=== PATIENT | male | born 1940 | race Caucasian/White ===

== ENCOUNTER 2018-06-18 17:34 | Emergency (ER) | payer MEDICARE ==
[~2018-06-18] VITALS: Ht 175.3 cm; Wt 80.0 kg
[2018-06-18] MEDS ORDERED: MULTCAP PO (18:05)
[2018-06-18] MEDS ORDERED: FINA5TAB2 PO (18:05)
[2018-06-18] MEDS ORDERED: METO1TAB7 PO (18:05)
[2018-06-18] MEDS ORDERED: NITR0.4S14 SL (18:05)
[2018-06-18] MEDS ORDERED: NYST1OIN TOP (18:05)
[2018-06-18] MEDS ORDERED: ACET1TAB55 PO (18:05)
[2018-06-18] MEDS ORDERED: LISI-538 PO (18:05)
[2018-06-18] MEDS ORDERED: ASPI1TAB PO (18:05)
[2018-06-18] MEDS ORDERED: CLOP75TA2 PO (18:05)
[2018-06-18] MEDS ORDERED: GABA-1171 PO (18:05)
[2018-06-18] MEDS ORDERED: OMEP20CA3 PO (18:05)
[2018-06-18] MEDS ORDERED: ATOR40TA75 PO (18:05)
[2018-06-18] MEDS ORDERED: HYDR12CA PO (18:05)
[2018-06-18] MEDS ORDERED: NS 1,000 ML IV ONE (18:30)
[2018-06-18 18:34] LABS: BASO # 0.1 10^3/uL (0.0-0.2); BASO % 0.5 % (0.0-1.0); EOS # 0.4 10^3/uL (0.0-0.50); EOS % 3.9 % (0.0-3.0); HEMATOCRIT 36.5 % (42.0-52.0); HEMOGLOBIN 12.8 g/dl (13.5-17.5); LYMPH # 1.4 10^3/uL (1.5-4.5); LYMPH % 13.3 % (24.0-44.0); MEAN CORPUSCULAR HEMOGLOBIN 33.6 pg (27.0-33.0); MEAN CORPUSCULAR HGB CONC 35.1 g/dl (32.0-36.5); MEAN CORPUSCULAR VOLUME 95.8 fl (80.0-96.0); MONO # 0.9 10^3/uL (0.0-0.8); MONO % 8.9 % (0.0-5.0); NEUTROPHILS # 7.5 10^3/uL (1.8-7.7); NEUTROPHILS % 72.6 % (36.0-66.0); PLATELET COUNT, AUTOMATED 290 10^3/uL (150-450); RED BLOOD COUNT 3.81 10^6/uL (4.30-6.10); WHITE BLOOD COUNT 10.3 10^3/uL (4.0-10.0)
[2018-06-18 18:48] LABS: INR 1.05; PROTHROMBIN TIME 13.8 SECONDS (12.1-14.4)
[2018-06-18 18:49] LABS: PARTIAL THROMBOPLASTIN TIME 29.6 SECONDS (25.4-37.6)
[2018-06-18 18:53] LABS: ALBUMIN 3.7 GM/DL (3.2-5.2); ALT/SGPT 22 U/L (12-78); BILIRUBIN,DIRECT < 0.1 MG/DL (0.0-0.2); BILIRUBIN,TOTAL 0.3 MG/DL (0.2-1.0); BLOOD UREA NITROGEN 30 MG/DL (7-18); CALCIUM LEVEL 8.8 MG/DL (8.8-10.2); CARBON DIOXIDE LEVEL 21 MEQ/L (21-32); CHLORIDE LEVEL 101 MEQ/L (98-107); CREATININE FOR GFR 2.16 MG/DL (0.70-1.30); GLOMERULAR FILTRATION RATE 31.7 (>42); GLUCOSE, FASTING 119 MG/DL (70-100); POTASSIUM SERUM 4.7 MEQ/L (3.5-5.1); SODIUM LEVEL 130 MEQ/L (136-145); TOTAL PROTEIN 7.4 GM/DL (6.4-8.2)
--- NOTE | 2018-06-18 20:09 | REPVR ---
EXAM: CT Abdomen and Pelvis Without Contrast EXAM DATE/TIME: 06/18/2018 7:17 PM CLINICAL HISTORY: 78 years old, male; Abnormal findings; Abnormal lab test; Other: Hematuria; Additional info: Gross hematuria, suprapubic catheter TECHNIQUE: Axial computed tomography images of the abdomen and pelvis without contrast. All CT scans at this facility use at least one of these dose optimization techniques: automated exposure control; mA and/or kV adjustment per patient size (includes targeted exams where dose is matched to clinical indication); or iterative reconstruction. Coronal and sagittal reformatted images were created and reviewed. COMPARISON: No relevant prior studies available. FINDINGS: Lower thorax: Minimal bibasilar bullous change with slight interstitial prominence and scar. Coronary artery calcifications are present. ABDOMEN: Liver: Normal. No mass. Gallbladder and bile ducts: Minimal gallstone measuring up to 5 mm. Pancreas: Normal. No ductal dilation. Spleen: Normal. No splenomegaly. Adrenals: Normal. No mass. Kidneys and ureters: Normal. No hydronephrosis. Stomach and bowel: Normal. No obstruction. No mucosal thickening. Appendix: A normal appendix is seen. PELVIS: Bladder: Suprapubic Giraldo catheter in position with increased density layering urinary bladder which may reflect blood clot or possible mass. There is wall thickening of the urinary bladder. Reproductive: Unremarkable as visualized. ABDOMEN and PELVIS: Intraperitoneal space: Normal. No free air. No significant fluid collection. 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 There are degenerative changes of the lumbar spine with facet arthropathy. Soft tissues: Small fat filled right inguinal hernia with bowel extending just into the orifice. There is a mild left inguinal hernia containing bowel with no strangulation or obstruction. Vasculature: Aortobiiliac covered stent traversing an abdominal aortic aneurysm measuring 5.3 x 4.6 cm. Lymph nodes: Lobular right adrenal mass or possible adenopathy which is confluent with the IVC measuring approximately 4.8 x 5.0 x 4.1 cm. IMPRESSION: 1. Suprapubic Giraldo catheter in the bladder. 2. Urinary bladder wall thickening with irregular high density material posteriorly which may reflect blood clot. Mass is not excluded. 3. Minimal bibasilar bullous change and slight interstitial prominence and scar. 4. Small right inguinal hernia and mild left inguinal hernia containing bowel, particularly on the left with no strangulation or obstruction. 5. Minimal cholelithiasis. 6. Lobular right adrenal mass or possible adenopathy measuring 4.8 x 5.0 x 4.1 cm. 7. Aortobiiliac covered stent traversing an abdominal aortic aneurysm 5.3 x 4.6 cm. Electronically signed by: Elton Fernández On 06/18/2018 20:08:58 PM
[2018-06-18] MEDS ORDERED: CIPR-250 PO (22:42)
[2018-06-18] MEDS ORDERED: CIPROFLOXACIN 250 MG TAB PO ONE (22:45)
[2018-06-18 22:54] VITALS: BP 169/71
--- NOTE | 2018-06-19 13:54 | ED PDOC ---
Post-Departure Follow-Up dr lucia and lidia peralta faxed formal report of ct abd/p for fu Dennis Hansen MD Jun 19, 2018 13:54
== END 2018-06-18 22:59 | disposition home or self-care (01) ==
LOC: M ED 17:34
DX: N30.91 Cystitis, unspecified with hematuria (principal); R79.89 Other specified abnormal findings of blood chemistry; R93.5 Abnormal findings on diagnostic imaging of other abdominal regions, including retroperitoneum; Z79.82 Long term (current) use of aspirin; Z79.01 Long term (current) use of anticoagulants

== ENCOUNTER 2019-01-28 08:28 | Inpatient (IN) | payer MEDICARE ==
[~2019-01-28] VITALS: Ht 175.3 cm; Wt 78.9 kg
[~2019-01-28 08:28] MED LIST: ACET1TAB55 PO; ASPI81TA26 PO; ATOR40TA75 PO; CIPR-250 PO; CLOP75TA2 PO; FINA5TAB2 PO; GABA-1171 PO; HYDR12CA PO; LISI-538 PO; METO1TAB7 PO; MULTCAP PO; NITR0.4S14 SL; NYST1OIN TOP; OMEP20CA4 PO
[2019-01-28 10:30] VITALS: BP 129/62
[2019-01-28 11:44] LABS: BASO % 0.1 % (0.0-1.0); EOS % 0.1 % (0.0-3.0); HEMATOCRIT 26.7 % (42.0-52.0); HEMOGLOBIN 8.6 g/dl (13.5-17.5); LYMPH # 0.6 10^3/uL (1.5-5.0); LYMPH % 6.8 % (24.0-44.0); MEAN CORPUSCULAR HEMOGLOBIN 29.5 pg (27.0-33.0); MEAN CORPUSCULAR HGB CONC 32.2 g/dl (32.0-36.5); MEAN CORPUSCULAR VOLUME 91.4 fl (80.0-96.0); MONO # 0.8 10^3/uL (0.0-0.8); MONO % 8.3 % (0.0-5.0); NEUTROPHILS # 7.9 10^3/uL (1.5-8.5); NEUTROPHILS % 83.2 % (36.0-66.0); PLATELET COUNT, AUTOMATED 178 10^3/uL (150-450); RED BLOOD COUNT 2.92 10^6/uL (4.30-6.10); WHITE BLOOD COUNT 9.5 10^3/uL (4.0-10.0)
[2019-01-28] MEDS ORDERED: ZOSY1INJ5 IV (11:46)
[2019-01-28] MEDS ORDERED: FURO80VL IM (11:46)
[2019-01-28] MEDS ORDERED: POTA1TAB14 PO (11:46)
[2019-01-28] MEDS ORDERED: [UNRECOGNIZED DRUG - CODE] IV (11:46)
[2019-01-28] MEDS ORDERED: CHOL400T PO (11:46)
[2019-01-28] MEDS ORDERED: LEVO1INJ4 IV (11:46)
[2019-01-28] MEDS ORDERED: [UNRECOGNIZED DRUG - CODE] IV (11:46)
[2019-01-28 12:00] VITALS: BP 132/62
[2019-01-28 12:07] LABS: CALCIUM LEVEL 7.3 MG/DL (8.8-10.2); CREATININE FOR GFR 2.12 MG/DL (0.70-1.30); GLOMERULAR FILTRATION RATE 32.3 (>42); POTASSIUM SERUM 3.7 MEQ/L (3.5-5.1)
[2019-01-28] MEDS ORDERED: NITROGLYCERIN 0.4 MG SUBL TABLET SL PRN (14:00)
[2019-01-28] MEDS: LISINOPRIL 20 MG TAB PO SCH (14:46)
[2019-01-28] MEDS: hydroCHLOROthiazide 12.5 MG CAPSULE PO SCH (14:46)
[2019-01-28] MEDS: METOPROLOL SUCC (TopROL XL) 50MG **XL** TAB PO SCH (14:46)
--- NOTE | 2019-01-28 14:49 | HPEPDOC ---
General Date of Admission Jan 28, 2019 at 10:25 Date of Service: Jan 28, 2019 Attending Physician: JENI SHARIF DO Chief Complaint The patient is a 79-year-old male admitted with a reason for visit of Urosepsis. Source: Patient, Family Exam Limitations: No limitations Timing/Duration: Week(s) Severity: Moderate Associated Symptoms: Fever, Chills, Weakness, Hypotension History of Present Illness Patient is 79 years old male with past medical history of [place], status post stent placement, aortic aneurysm repair, urethra stricture with chronic suprapubic catheter transferred from [facility], where he was admitted for urosepsis. Patient was found to have low blood pressure 70/40, temperature 102.1, tachycardia 113, lactic acid of 2.6. Patient stated that he developed fever and chills for past few days. Also patient stated that he has been having gross hematuria for past few months. Abdominal and pelvis CT was done and showed bladder wall thickening suspicious for mass, and obstructive changes with moderate hydronephrosis of the right collecting system. Patient received fluid resuscitation and antibiotics, blood pressure was stabilized and patient was transferred to our facility Home Medications Scheduled Aspirin (Aspirin EC) 81 Mg Tab, 81 MG PO QHS, (Reported) Atorvastatin Calcium (Atorvastatin Calcium) 40 Mg Tab, 40 MG PO QHS, (Reported) Cholecalciferol (Vitamin D3) (Vitamin D3) 400 Unit Tablet, 400 UNIT PO DAILY, (Reported) Finasteride (Finasteride) 5 Mg Tab, 5 MG PO QHS, (Reported) Gabapentin (Gabapentin) 100 Mg Cap, 100 MG PO TID, (Reported) Hydrochlorothiazide (Hydrochlorothiazide) 12.5 Mg Cap, 12.5 MG PO DAILY, (Reported) Levofloxacin in Dextrose 5 % (Levofloxacin 750 mg/150 ml-D5w) 750 Mg/150 Ml Piggyback, 750 MG IV DAILY, (Reported) GIVEN AT [place] ONCE OF ONE Lisinopril (Lisinopril) 20 Mg Tab, 20 MG PO DAILY, (Reported) Metoprolol Succinate (Metoprolol Succinate) 50 Mg Tab, 50 MG PO DAILY, (Rep orted) Multivitamin (Multivitamins) 1 Cap Cap, 1 CAP PO DAILY, (Reported) Omeprazole (Omeprazole) 20 Mg Cap, 20 MG PO BID, (Reported) Piperacillin Sodium/Tazobactam (Zosyn 4.5 Gram Vial) 4.5 Gm Vial, 4.5 GM IV DAILY, (Reported) GIVEN WITH 100ML OF NACL 0.9% AT [place] Potassium Chloride (Potassium Chloride) 20 Meq Tablet.er, 40 MEQ PO DAILY, (Reported) GIVEN AT [place] Vancomycin/0.9 % Sod Chloride (Vanco 1.5 gm/300 ml-0.9% NaCl) 1.5 Gm/300 Ml Plast..bag, 1.5 GM IV DAILY, (Reported) GIVEN AT [place] ONCE OF ONE Scheduled PRN Acetaminophen (Acetaminophen) 325 Mg Tab, 650 MG PO Q8H PRN for PAIN / FEVER, (Reported) Nitroglycerin (Nitroglycerin) 0.4 Mg Sub, 0.4 MG SL NITRO PRN for CHEST PAIN, (Reported) Nystatin/Triamcin (Nystatin-Triamcinolone Ointm) 1 Oin Oin, 1 APLCT TOP QID PRN for RASH AROUND CATHETER, (Reported) apply to affected area(s) Allergies Coded Allergies: No Known Allergies (Unverified , 01/28/19) Past Medical History Medical History Aortic aneurysm repair, [place], s/p stents placement, hypertension, chronic urethral stricture Surgical History Aortic aneurysm repair, cystostomy with chronic suprapubic catheter Family History Father from heart attack Social History * Smoker: former Smoker Alcohol: Denies Drugs: denies A-FIB/CHADSVASC A-FIB History Current/History of A-Fib/PAF?: No Current PO Anticoag Therapy: No Review of Systems Constitutional: Reports: Chills, Fever, Weakness, Fatigue Eyes: Denies: Pain, Vision change ENT: Denies: Head Aches, Ear Pain Skin: Denies: Rash, Lesions Pulmonary: Denies: Dyspnea, Cough Cardiovascular: Denies: Chest Pain, Palpitations Gastrointestinal: Denies: Nausea, Vomiting Genitourinary: Reports: Hematuria; Denies: Dysuria, Frequency Hematologic: Denies: Bruising, Bleeding Excessively Endocrine: Denies: Polydipsia, Polyphagia Musculoskeletal: Denies: Neck Pain, Back Pain Neurological: Denies: Weakness Psych: Reports: Mood Normal Physical Examination General Exam: Positive: Alert, Cooperative Eye Exam: Positive: PERRLA, Conjunctiva & lids normal ENT Exam: Positive: Atraumatic Neck Exam: Positive: Supple; Negative: JVD Chest Exam: Positive: Clear to auscultation Heart Exam: Positive: Rate Normal Telemetry: Positive: No significant arrhythmia Abdomen Exam: Positive: Normal bowel sounds, Other (suprapubic catheter in place) Extremity Exam: Negative: Clubbing, Cyanosis Skin Exam: Positive: Nl turgor and temperature Neuro Exam: Positive: Strength at 5/5 X4 ext, Cranial Nerves 3-12 NL Vital Signs Vital Signs Date Time Temp Pulse Resp B/P (MAP) Pulse Ox O2 Delivery O2 Flow Rate FiO2 01/28/19 13:59 95 Room Air 01/28/19 12:00 98.2 75 20 132/62 (85) 2.0 Laboratory Data Labs 24H Laboratory Tests 2 01/28/19 11:21: Immature Granulocyte % (Auto) 1.5, Neutrophils (%) (Auto) 83.2H, Lymphocytes (%) (Auto) 6.8L, Monocytes (%) (Auto) 8.3H, Eosinophils (%) (Auto) 0.1, Basophils (%) (Auto) 0.1, Neutrophils # (Auto) 7.9, Lymphocytes # (Auto) 0.6L, Monocytes # (Auto) 0.8, Eosinophils # (Auto) 0.0, Basophils # (Auto) 0.0, Nucleated Red Blood Cells % (auto) 0.0, Anion Gap 10, Glomerular Filtration Rate 32.3L, Lactic Acid Level 1.6, Calcium Level 7.3L 01/28/19 11:46: Methicillin-Resist S.aureus DNA PCR NOT DETECTED CBC/BMP Laboratory Tests 01/28/19 11:21 Microbiology Microbiology 01/28/19 Blood Culture, Received Pending 01/28/19 Blood Culture, Received Pending Assessment/Plan Patient is 79 years old male with past medical history of [place], status post stent placement, aortic aneurysm repair, urethra stricture with chronic suprapubic catheter transferred from [facility], where he was admitted for urosepsis. Patient was found to have low blood pressure 70/40, temperature 102.1, tachycardia 113, lactic acid of 2.6. Patient stated that he developed fever and chills for past few days. Also patient stated that he has been having gross hematuria for past few months. Abdominal and pelvis CT was done and showed bladder wall thickening suspicious for mass, and obstructive changes with moderate hydronephrosis of the right collecting system Problems (1) Sepsis Status: Acute Problem Text: Patient has increased lactic acid level, fever, tachycardia, hypotension on the admission at [facility] on 01/28/19 Patient received fluid resuscitation and Zosyn On admission to [facility], patient was afebrile, does not have leukocytosis Continue IV fluid, will check blood culture, meropenem IV (2) Gross hematuria Status: Acute Problem Text: Findings on CT suspicious for bladder carcinoma I talked to Dr. Higgins she will proceed with cystoscopy tomorrow (3) Bladder mass Problem Text: See above (4) AUSTIN (acute kidney injury) Problem Text: Multifactorial renal and prerenal causes Most likely secondary to obstruction and dehydration secondary to sepsis Continue IV fluid Continue to monitor (5) Coronary artery disease Problem Text: Continue home cardioprotective medication Patient does not have any chest pain EKG does not show any acute ischemic changes (6) Hypertension Problem Text: Blood pressures under control Continue home meds Plan / VTE VTE Prophylaxis Ordered?: No VTE Exclusion Pharmacological: Active Bleeding JENI SHARIF DO Jan 28, 2019 14:49
[2019-01-28 16:00] VITALS: BP 142/70
[2019-01-28] MEDS: NS 1,000 ML IV SCH (16:16)
[2019-01-28] MEDS: GABAPENTIN 100 MG CAP PO SCH ×2 (16:16→20:24)
[2019-01-28] MEDS: VITAMIN D (CHOLECALCIFEROL) 400 INTERNATIONAL UNITS TAB PO SCH (16:54)
[2019-01-28] MEDS: MEROPENEM INJ 1 GM in IV 1 EA IV SCH (17:01)
[2019-01-28 17:41] LABS: CK-MB VALUE MASS 2.1 NG/ML (<3.6); MB/CK RELATIVE INDEX 1.02 (< OR =4); TROPONIN I 0.19 NG/ML (< 0.10)
--- NOTE | 2019-01-28 17:46 | IPNPDOC ---
Text Note Date of Service The patient was seen on 01/28/19. NOTE Mr. Downs was seen in consultation on 01/28/19 at the request of Dr. Allison for several month history of gross hematuria, recent urosepsis transferred last night from [facility], and a history of a suprapubic catheter. The patient is well known to our office and also has a right adrenal mass which they have been watching for many years. For the last 8 years he has had a suprapubic tube for a urethral stricture which she decided not to have complete reconstruction on. He has had difficulty with recurrent urinary tract infections and gross hematuria. He had a cystoscopy done in the office on 03/21/19 and this was unremarkable except for edematous changes from the indwelling catheter. He has been off Plavix but continues to have gross hematuria for the last several months which comes and goes. Mr. Downs went to the emergency room last night at [facility] with a fever of 102 and chills. He was found to be hypotensive with a blood pressure of 70/40 and tachycardic with a lactic acid of 2.6. She fluid resuscitation, antibiotics, and he was stabilized and transferred. A CT scan done at [facility] showed a right adrenal mass now measuring 6.5 cm which they read was concerning for neoplasm but supposedly this is been there since Not bladder wall thickening. Past medical history: Coronary artery disease, high blood pressure, hyperlipidemia, urethral stricture, GERD, history of a CVA in 2011, peripheral vascular disease, and an CT with stent placements Past surgical history: Aortic abdominal aneurysm repair, cardiac catheterization with stents, and suprapubic catheter placement Home medications: Aspirin, atorvastatin, vitamin D, finasteride, gabapentin, hydrochlorothiazide, lisinopril, meoprolol, multivitamin, omprazole Allergies: Known drug allergies Social history: He quit smoking cigarettes 10 years ago but does feed. He denies the use of alcohol. Family history: His father from a heart attack Review of systems: A 12 system review was done and is in the HPI he did have myalgias, fever, chills, and weakness. He also is still a little shaky. Physical exam: This a well-developed well-nourished gentleman in no apparent respiratory distress and he is alert and oriented 3. His neck is supple and without any significant supraclavicular or cervical adenopathy. His eyes are PERRLA. His heart is tachycardic but otherwise regular rhythm. His lungs are clear to auscultation and percussion. He has no CVA tenderness. His abdomen shows a suprapubic catheter draining darkish urine but without any blood clots. His abdomen is otherwise soft and nontender without any rebound or guarding. His extremities show no cyanosis clubbing or edema. Impression: -Admission with urosepsis with hypotension, fever of 102, chills -Long-standing history of a suprapubic catheter with gross hematuria for at le ast 6 months with a unremarkable cystoscopy March 2019 except for bullous edema -History of recurrent urinary tract infections -History of an CT with stent placement but now off of Plavix and only on aspirin -Acute renal insufficiency with a creatinine now of 2.1 to and this is probably multifactorial in nature -CT scan done at [facility] 01/28/19 shows gallbladder thickening, a 6 x 5 cm adrenal mass which the patient has reportedly had since the 1980s and this is been being followed, and the bladder was decompressed on this exam most likely with a thickened wall. There is also findings of mild right hydronephrosis of questionable etiology in a patient with an elevated creatinine Plan: -Bring the patient to the operating room for cystoscopy most likely through the suprapubic catheter. We will plan to do biopsies if anything abnormal is seen and possible TURBT. If we can we will also try to do a right retrograde pyelogram. We may try urethroscopy but according to the patient it is completely blocked off. -Informed consent was obtained and orders were written. All options, alternatives, risks, and benefits were discussed at length with the patient and all questions were answered. At least 65 minutes was spent today with greater than 50% of this in face-to- face consultation. VS,Fishbone, I+O VS, Fishbone, I+O Laboratory Tests 01/28/19 11:21 Vital Signs Date Time Temp Pulse Resp B/P (MAP) Pulse Ox O2 Delivery O2 Flow Rate FiO2 01/28/19 16:00 98.7 87 18 142/70 (94) 99 Room Air 01/28/19 12:00 2.0 SOWMYA REBOLLAR MD Jan 28, 2019 17:46
[2019-01-28 19:39] VITALS: BP 158/68
[2019-01-28] MEDS: ACETAMINOPHEN TAB 650MG DOSE (2X325MG) PO PRN (19:40)
[2019-01-28] MEDS: OMEPRAZOLE 20 MG CAP PO SCH (20:24)
[2019-01-28] MEDS: ATORVASTATIN 20 MG TAB PO SCH (20:24)
[2019-01-28] MEDS ORDERED: ASPIRIN 81 MG ENTERIC TAB PO SCH (21:00)
[2019-01-28] MEDS ORDERED: HEPARIN SOD (PORCINE) 5000 UNITS/ML VIAL SC SCH (21:00)
[2019-01-28] MEDS ORDERED: VANCOMYCIN HCL 500 MG in D5W MINI-BAG PLUS 100 ML IV ONE (21:00)
[2019-01-28] MEDS ORDERED: FINASTERIDE 5 MG TAB PO SCH (21:00)
[2019-01-29] VITALS (14 sets, daily range): BP systolic 125–186; BP diastolic 56–84
[2019-01-29] MEDS ORDERED: MORPHINE 4 MG/ML 1ML VIAL/SYRINGE (J2270) IV PRN
[2019-01-29] MEDS ORDERED: MORPHINE 4 MG/ML 1ML VIAL/SYRINGE (J2270) As Ordered ONE (00:08)
[2019-01-29 00:36] LABS: INR 1.28; PROTHROMBIN TIME 15.7 SECONDS (11.8-14.0)
[2019-01-29] MEDS: NS 1,000 ML IV SCH ×2 (03:49→14:43)
[2019-01-29 05:00] LABS: HEMATOCRIT 25.7 % (42.0-52.0); HEMOGLOBIN 8.5 g/dl (13.5-17.5); MEAN CORPUSCULAR HEMOGLOBIN 29.5 pg (27.0-33.0); MEAN CORPUSCULAR HGB CONC 33.1 g/dl (32.0-36.5); MEAN CORPUSCULAR VOLUME 89.2 fl (80.0-96.0); PLATELET COUNT, AUTOMATED 173 10^3/uL (150-450); RED BLOOD COUNT 2.88 10^6/uL (4.30-6.10); WHITE BLOOD COUNT 9.2 10^3/uL (4.0-10.0)
[2019-01-29] MEDS: MEROPENEM INJ 1 GM in IV 1 EA IV SCH ×2 (05:12→18:01)
[2019-01-29 05:26] LABS: ALBUMIN 2.1 GM/DL (3.2-5.2); BILIRUBIN,TOTAL 0.5 MG/DL (0.2-1.0); CREATININE FOR GFR 2.1 MG/DL (0.70-1.30); GLOMERULAR FILTRATION RATE 32.7 (>42); POTASSIUM SERUM 3.4 MEQ/L (3.5-5.1); TOTAL PROTEIN 6.3 GM/DL (6.4-8.2)
[2019-01-29] MEDS: OMEPRAZOLE 20 MG CAP PO SCH ×2 (08:14→20:46)
[2019-01-29] MEDS: GABAPENTIN 100 MG CAP PO SCH ×3 (08:15→20:46)
[2019-01-29] MEDS: METOPROLOL SUCC (TopROL XL) 50MG **XL** TAB PO SCH (08:15)
[2019-01-29] MEDS: hydroCHLOROthiazide 12.5 MG CAPSULE PO SCH (08:15)
[2019-01-29] MEDS: VITAMIN D (CHOLECALCIFEROL) 400 INTERNATIONAL UNITS TAB PO SCH (08:15)
[2019-01-29] MEDS: LISINOPRIL 20 MG TAB PO SCH (08:15)
[2019-01-29] MEDS: POTASSIUM CHLORIDE 10 MEQ SR TABLET PO SCH (08:16)
[2019-01-29] MEDS: ACETAMINOPHEN TAB 650MG DOSE (2X325MG) PO PRN (08:27)
[2019-01-29] MEDS ORDERED: VANCOMYCIN HCL 1,000 MG, VIAL MATE ADAPTER 1 EACH in D5W 250 ML IV SCH (09:00)
[2019-01-29] MEDS ORDERED: FUROSEMIDE 40 MG/4 ML VIAL (J1940) IM SCH (09:00)
[2019-01-29] MEDS ORDERED: PROPOFOL 200 MG/20 ML VIAL As Ordered ONE (10:12)
[2019-01-29] MEDS ORDERED: LIDOCAINE 2% INJ 100 MG/5 ML SDV (FOR ANES.) As Ordered ONE (10:12)
[2019-01-29] MEDS ORDERED: ROCURONIUM BROMIDE 50 MG/5 ML VIAL As Ordered ONE (10:15)
[2019-01-29] MEDS ORDERED: dexameTHASONE 4 MG/ML 1ML VIAL (J1100) As Ordered ONE (10:17)
[2019-01-29] MEDS ORDERED: MIDAZOLAM INJ 2 MG/2 ML VIAL (J2250) As Ordered ONE (10:17)
[2019-01-29] MEDS ORDERED: fentaNYL 100 MCG/2 ML INJECTION (J3010) As Ordered ONE (10:17)
[2019-01-29] MEDS ORDERED: ONDANSETRON 4MG/2ML VIAL (J2405) As Ordered ONE (10:17)
[2019-01-29] MEDS ORDERED: GLYCOPYRROLATE INJ 0.2 MG/ML 2 ML VIAL As Ordered ONE (12:34)
[2019-01-29] MEDS ORDERED: NEOSTIGMINE 10 MG/10 ML VIAL (J2710) As Ordered ONE (12:34)
[2019-01-29] MEDS ORDERED: ACETAMINOPHEN 1000MG 100ML IV BTL (OFIRMEV) (J0131 PER 10MG) As Ordered ONE (12:36)
[2019-01-29] MEDS ORDERED: ONDANSETRON 4MG/2ML VIAL (J2405) IV PRN (13:45)
[2019-01-29] MEDS ORDERED: LR 1,000 ML IV SCH (13:45)
[2019-01-29] MEDS ORDERED: MEPERIDINE INJ 25 MG/ML VIAL (J2175) IV PRN (13:45)
[2019-01-29] MEDS ORDERED: METOCLOPRAMIDE INJ 10MG/2ML VIAL (J2765) IV PRN (13:45)
[2019-01-29] MEDS ORDERED: PERCOCET 5MG/325MG TAB PO PRN (13:45)
[2019-01-29] MEDS ORDERED: fentaNYL 100 MCG/2 ML INJECTION (J3010) IV PRN (13:45)
--- NOTE | 2019-01-29 15:39 | IPNPDOC ---
Text Note Date of Service The patient was seen on 01/29/19. NOTE Subjective: Patient developed gross hematuria in the morning, he received co ntinuous bladder irrigation. Later today cystoscopy was done, patient tolerated procedure well. Physical Examination General Exam: Positive: Alert, Cooperative Eye Exam: Positive: PERRLA, Conjunctiva & lids normal ENT Exam: Positive: Atraumatic Neck Exam: Positive: Supple; Negative: JVD Chest Exam: Positive: Clear to auscultation Heart Exam: Positive: Rate Normal Telemetry: Positive: No significant arrhythmia Abdomen Exam: Positive: Normal bowel sounds, Other (suprapubic catheter in p lace) Extremity Exam: Negative: Clubbing, Cyanosis Skin Exam: Positive: Nl turgor and temperature Neuro Exam: Positive: Strength at 5/5 X4 ext, Cranial Nerves 3-12 NL Assessment/Plan Patient is 79 years old male with past medical history of [place], status post stent placement, aortic aneurysm repair, urethra stricture with chronic suprapubic catheter transferred from [facility], where he was admitted for urosepsis. Patient was found to have low blood pressure 70/40, temperature 102.1, tachycardia 113, lactic acid of 2.6. Patient stated that he developed fever and chills for past few days. Also patient stated that he has been having gross hematuria for past few months. Abdominal and pelvis CT was done and showed bladder wall thickening suspicious for mass, and obstructive changes with moderate hydronephrosis of the right collecting system. On 01/29/19 blood culture came back positive for Escherichia coli. Meropenem IV. Cystoscopy was done by Dr. Higgins. Await result. Problems (1) Sepsis Resolved Patient had increased lactic acid level, fever, tachycardia, hypotension on the admission at [facility] on 01/28/19 Patient received fluid resuscitation and Zosyn On admission to [facility], patient was afebrile, no leukocytosis Continue meropenem IV (2) Gross hematuria Status: Acute Findings on CT suspicious for bladder carcinoma Await cystoscopy result, continue bladder irrigation (3) Bladder mass Problem Text: See above (4) [place] (acute kidney injury) Problem Text: Multifactorial renal and prerenal causes Most likely secondary to obstruction and dehydration secondary to sepsis Continue IV fluid Continue to monitor (5) Coronary artery disease Problem Text: Continue home cardioprotective medication Patient does not have any chest pain EKG does not show any acute ischemic changes (6) Hypertension Problem Text: Blood pressures under control Continue home meds Acute blood loss anemia Secondary to hematuria Patient received 2 units of blood H&H every 6 hours Plan / VTE VTE Prophylaxis Ordered?: No VTE Exclusion Pharmacological: Active Bleeding VS,Fishbone, I+O VS, Fishbone, I+O Laboratory Tests 01/29/19 00:15 01/29/19 04:47 Vital Signs Date Time Temp Pulse Resp B/P (MAP) Pulse Ox O2 Delivery O2 Flow Rate FiO2 01/29/19 14:35 96.9 62 18 134/63 (86) 98 Room Air 01/29/19 13:35 2 I&O- Last 24 Hours up to 6 AM 01/29/19 05:59 Intake Total 1420 ml Output Total 2500 ml Balance -1080 ml JENI SHARIF DO Jan 29, 2019 15:38
--- NOTE | 2019-01-29 16:17 | RO ---
DATE OF PROCEDURE: 01/29/2019 PREOPERATIVE DIAGNOSIS: Gross hematuria, urosepsis, and suprapubic catheter. POSTOPERATIVE DIAGNOSIS: Gross hematuria, urosepsis, and suprapubic catheter. PROCEDURE: Cystoscopy through the suprapubic tube tract with significant bladder irrigation. SURGEON: Dr. Homa Higgins ACCOUNTS RECEIVABLE ADMINISTRATOR: ANESTHESIA: Monitored anesthesia care (MAC). FINDINGS: Of the bladder lining I could see I saw no evidence of tumor. There was just significant amount of blood clot and some bullous edema with active bleeding from chronic and acute cystitis without an obvious area that could be fulgurated well. I was unable to appreciate the ureteral orifices and retrograde pyelogram was not a possibility. INDICATIONS FOR PROCEDURE: The patient is a 79-year-old gentleman who has had a suprapubic catheter in place for a history of urethral strictures for at least the last 8 years. He decided not to have complete urethral reconstruction and has a closed urethra at this time. He has been managed by a suprapubic catheter and he has had gross hematuria on and off for at least the last 6 months. He also has difficulty with recurrent urinary tract infections. He has been off of Plavix and on aspirin but still continues to have gross hematuria. He had gone to [facility] with a fever of 102 and chills and was found to be hypotensive and tachycardic in obvious urosepsis sepsis. He received fluid resuscitation, antibiotics, was stabilized and was transferred to [facility]. A CT scan done at [facility] showed a right adrenal mass measuring 6.5 cm, which has been being watched since the 1980s, but they did read this concerning for neoplasm. They also read that there was concern for gallbladder thickening but they really did not read any abnormalities in the bladder. The patient was transferred here and his catheter needed to be changed to a 22[place] three-way last night for continuous bladder irrigation and continued bleeding. He has received a total of 5 units of packed red blood cells at this point. DESCRIPTION OF PROCEDURE: The patient was brought into the operating room and placed in the lithotomy position. His suprapubic catheter was removed and he was prepped and draped in the usual fashion. I placed a 21[place] cystoscope through his suprapubic access and hand irrigated his bladder for a significant amount of clots. When I was done there was still significant oozing making visualization very difficult. There were areas of the bladder though that I could see which appeared to be very normal and other areas that I could see which appeared to be more like bullous edema. I did not appreciate any definite areas concerning for bladder cancer, but again this was quite a suboptimal exam. I also was unable to find significant areas to fulgurate and could not see the ureteral orifices. Originally I had wanted to do a right retrograde pyelogram because there was also mild to moderate right hydronephrosis and some renal insufficiency. At the conclusion of the procedure, a 22[place] three-way catheter was replaced through the suprapubic area and he was returned to the recovery room in stable condition on continuous bladder irrigation.
[2019-01-29 16:59] LABS: HEMATOCRIT 29.2 % (42.0-52.0); HEMOGLOBIN 9.6 g/dl (13.5-17.5)
[2019-01-29] MEDS: ATORVASTATIN 20 MG TAB PO SCH (20:46)
[2019-01-29 21:43] LABS: HEMATOCRIT 27.5 % (42.0-52.0); HEMOGLOBIN 9.2 g/dl (13.5-17.5)
[2019-01-30 04:00] VITALS: BP 138/88
[2019-01-30] MEDS: NS 1,000 ML IV SCH ×2 (04:30→16:06)
[2019-01-30 06:03] LABS: HEMATOCRIT 27.4 % (42.0-52.0); HEMOGLOBIN 9.2 g/dl (13.5-17.5); MEAN CORPUSCULAR HGB CONC 33.6 g/dl (32.0-36.5); MEAN CORPUSCULAR VOLUME 86.4 fl (80.0-96.0); PLATELET COUNT, AUTOMATED 176 10^3/uL (150-450); RED BLOOD COUNT 3.17 10^6/uL (4.30-6.10); WHITE BLOOD COUNT 9.6 10^3/uL (4.0-10.0)
[2019-01-30 06:04] LABS: HEMATOCRIT 27.6 % (42.0-52.0); HEMOGLOBIN 9.2 g/dl (13.5-17.5)
[2019-01-30] MEDS: MEROPENEM INJ 1 GM in IV 1 EA IV SCH ×2 (06:07→16:54)
[2019-01-30 06:29] LABS: CALCIUM LEVEL 8.4 MG/DL (8.8-10.2); CREATININE FOR GFR 1.61 MG/DL (0.70-1.30); GLOMERULAR FILTRATION RATE 44.4 (>42); MAGNESIUM LEVEL 1.4 MG/DL (1.8-2.4); POTASSIUM SERUM 3.7 MEQ/L (3.5-5.1)
--- NOTE | 2019-01-30 07:10 | IPNPDOC ---
Text Note Date of Service The patient was seen on 01/30/19. NOTE Subjective: -Had cystoscopy yesterday and placed on continuous bladder irrigation. Tolerated procedure well. -Afebrile with no complaint of fever, chills. Physical Examination General Exam: Alert, Cooperative Eye Exam: PERRLA, Conjunctiva & lids normal ENT Exam: Atraumatic Neck Exam: Supple, no JVD Chest Exam: CTAB, no rales and no wheezing Heart Exam: RRR, no mrg Telemetry: No significant ectopy Abdomen Exam: Normal bowel sounds, non tender, suprapubic catheter in place, on CBI with light pink urine draining. Extremity Exam: WWP, no edema, 2+ DP pulses Skin Exam: Normal turgor and temperature Neuro Exam: Strength at 5/5 X4 ext, Cranial Nerves 3-12 WNL Assessment/Plan 79 years old man with a history of [place], s/p PCI, aortic aneurysm repair, urethral stricture with chronic suprapubic catheter transferred from [facility], where he was admitted for uroseptic shock with blood pressure 70/40, temperature 102.1, tachycardia 113, lactic acid of 2.6 with ongoing gross hematuria for past few months. He had a CT A/P that showed bladder wall thickening suspicious for a mass, and obstructive changes with moderate hydronephrosis of the right collecting system and on 01/29/19 blood culture came back positive for Escherichia coli. and remains on meropenem. On 01/29 he had cystoscopy with Dr. Higgins with replacement of the suprapubic catheter and placed on CBI with pending pathology. Problems E.coli uroseptic shock: Resolved Patient had increased lactic acid level, fever, tachycardia, hypotension on the admission at [facility] on 01/28/19 -s/p fluid resuscitation and Zosyn -On admission to [facility], patient was afebrile with no leukocytosis -Continue meropenem IV -Gross hematuria -Findings on CT suspicious for bladder mass c/f malignancy -Pending cystoscopy path results -On continuous bladder irrigation per urology -Urology consulted, appreciate recs [place] -Multifactorial intrarenal and prerenal causes -Most likely secondary to obstruction and dehydration secondary to septic shock -s/p IV fluid -Improving, continue to monitor Coronary artery disease -Continue home cardioprotective medication -No chest pain -EKG done this admission was without acute ischemic changes History of hypertension -Normotensive at this time -Continue home meds Acute blood loss anemia: 2/2 hematuria -s/p 2 units of blood -H&H every 6 hours, and if stable at end of 01/30, switch to daily Plan / VTE VTE Prophylaxis Ordered?: No VTE Exclusion Pharmacological: Active Bleeding VS,Fishbone, I+O VS, Fishbone, I+O Laboratory Tests 01/29/19 16:13 01/29/19 21:36 01/30/19 05:40 Vital Signs Date Time Temp Pulse Resp B/P (MAP) Pulse Ox O2 Delivery O2 Flow Rate FiO2 01/30/19 04:00 98.7 66 16 138/88 (105) 97 Room Air 01/29/19 13:35 2 I&O- Last 24 Hours up to 6 AM 01/30/19 06:00 Intake Total 2710 ml Output Total 2725 ml Balance -15 ml EDGAR JOHNSON MD Jan 30, 2019 07:10
[2019-01-30 08:00] VITALS: BP 115/58
--- NOTE | 2019-01-30 08:16 | IPNPDOC ---
Text Note Date of Service The patient was seen on 01/30/19. NOTE Patient did well overnight and did not require hand bladder irrigation for clot. He only needed 2 bags for continuous bladder irrigation. He is comfortable now and denies any right flank pain. He has been afebrile and no further chills. His H&H is stable at 9.2 over 27.4. His creatinine has come down slightly but is still 1.61. Physical exam: He is alert and oriented 3. He has no CVA tenderness. His abdomen is soft and nontender without any rebound or guarding. His calves show no cyanosis clubbing or edema. Impression: -Gross hematuria for many months most likely secondary to hemorrhagic cystitis and bullous edema from a long-standing indwelling catheter without any definite evidence of any other abnormalities seen in the bladder on cystoscopy 01/29/19 but in a patient requiring 5 units of packed red blood cells -Urosepsis now doing much better with normal blood pressure, afebrile, and normal white blood count so far with normal blood cultures but we will need to obtain the urine cultures from [facility] -Right hydroureteronephrosis of questionable etiology but possibly secondary to blood clots in the bladder in a patient without any pain on that side -Acute renal insufficiency with slight improvement in his creatinine today -Long-standing indwelling suprapubic catheter for a history of ureteral strictures which she never wanted to undergo complete reconstructive surgery and now his urethra is completely closed off Plan: -Continue continuous bladder irrigation for now through the suprapubic catheter -Continue every 12 hours H&H while he is still bleeding and we can discontinue this once the bleeding slows down -Continue antibiotic treatment and medical management for his urosepsis -Obtain an ultrasound to see if the right hydro-has now improved since the blood clots of been irrigated from his bladder VS,Fishbone, I+O VS, Fishbone, I+O Laboratory Tests 01/29/19 16:13 01/29/19 21:36 01/30/19 05:40 Vital Signs Date Time Temp Pulse Resp B/P (MAP) Pulse Ox O2 Delivery O2 Flow Rate FiO2 01/30/19 04:00 98.7 66 16 138/88 (105) 97 Room Air 01/29/19 13:35 2 I&O- Last 24 Hours up to 6 AM 01/30/19 06:00 Intake Total 2710 ml Output Total 2725 ml Balance -15 ml SOWMYA REBOLLAR MD Jan 30, 2019 08:16
[2019-01-30] MEDS: OMEPRAZOLE 20 MG CAP PO SCH ×2 (09:30→20:22)
[2019-01-30] MEDS: GABAPENTIN 100 MG CAP PO SCH ×3 (09:30→20:21)
[2019-01-30] MEDS: hydroCHLOROthiazide 12.5 MG CAPSULE PO SCH (09:30)
[2019-01-30] MEDS: METOPROLOL SUCC (TopROL XL) 50MG **XL** TAB PO SCH (09:30)
[2019-01-30] MEDS: VITAMIN D (CHOLECALCIFEROL) 400 INTERNATIONAL UNITS TAB PO SCH (09:30)
[2019-01-30] MEDS: LISINOPRIL 20 MG TAB PO SCH (09:30)
[2019-01-30] MEDS: POTASSIUM CHLORIDE 10 MEQ SR TABLET PO SCH (09:31)
[2019-01-30 09:42] LABS: HEMATOCRIT 27.3 % (42.0-52.0); HEMOGLOBIN 9.1 g/dl (13.5-17.5)
--- NOTE | 2019-01-30 11:07 | REP ---
Urinary tract sonography: History: Right-sided hydronephrosis. Comparison CT study June 18, 2018 showed a suprapubic catheter with high attenuation fluid in the urinary bladder but no evidence of hydronephrosis. 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 Sonographic findings: Scanning at the level of the urinary bladder again demonstrates the suprapubic catheter in the urinary bladder. The bladder wall is markedly thickened. There is some air in the urinary bladder limiting visualization. Renal cortical echogenicity pattern is normal bilaterally. There is no evidence of hydronephrosis on the left but there is moderate hydronephrosis affecting the right kidney as a new finding compared to the prior CT. Right renal dimensions are 11.2 x 5.3 x 7.1 cm. The left kidney measures 12.0 x 6.3 x 5.6 cm. There is a 0.8 cm cyst at the upper pole of the left kidney. The previously noted right adrenal mass seen on CT study was not seen by ultrasound. Impression: Moderate right-sided hydronephrosis new from the comparison CT study June 18, 2018. The 5 cm right adrenal mass observed on that prior CT study was not visualized sonographically today. No left-sided hydronephrosis is seen. There is marked thickening of the urinary bladder wall. Suprapubic catheter in place. Electronically Signed by Mina Acharya MD 01/30/2019 11:52 A
[2019-01-30 12:00] VITALS: BP 114/72
[2019-01-30] MEDS ORDERED: MAG SULF 1GM/100ML (MAG RUN) 1 GM in IV 1 EA IV ONE (14:00)
[2019-01-30 15:47] LABS: HEMATOCRIT 26.4 % (42.0-52.0); HEMOGLOBIN 8.7 g/dl (13.5-17.5)
[2019-01-30 16:00] VITALS: BP 140/72
[2019-01-30 18:38] LABS: HEMATOCRIT 25.5 % (42.0-52.0); HEMOGLOBIN 8.5 g/dl (13.5-17.5); MEAN CORPUSCULAR HEMOGLOBIN 29.1 pg (27.0-33.0); MEAN CORPUSCULAR HGB CONC 33.3 g/dl (32.0-36.5); MEAN CORPUSCULAR VOLUME 87.3 fl (80.0-96.0); PLATELET COUNT, AUTOMATED 164 10^3/uL (150-450); RED BLOOD COUNT 2.92 10^6/uL (4.30-6.10); WHITE BLOOD COUNT 10.4 10^3/uL (4.0-10.0)
[2019-01-30 20:00] VITALS: BP 146/67
[2019-01-30] MEDS: ATORVASTATIN 20 MG TAB PO SCH (20:21)
[2019-01-30 21:37] LABS: HEMATOCRIT 25.7 % (42.0-52.0); HEMOGLOBIN 8.6 g/dl (13.5-17.5)
[2019-01-30 23:59] VITALS: BP_SYST 145; BP_SYST 69; BP_DIAS 67; BP_DIAS 69
[2019-01-31] MEDS: NS 1,000 ML IV SCH ×2 (03:46→17:37)
[2019-01-31 04:00] VITALS: BP 151/70
[2019-01-31] MEDS: MEROPENEM INJ 1 GM in IV 1 EA IV SCH ×2 (05:14→17:37)
[2019-01-31 05:26] LABS: HEMATOCRIT 26.2 % (42.0-52.0); HEMOGLOBIN 8.7 g/dl (13.5-17.5); MEAN CORPUSCULAR HEMOGLOBIN 28.6 pg (27.0-33.0); MEAN CORPUSCULAR HGB CONC 33.2 g/dl (32.0-36.5); MEAN CORPUSCULAR VOLUME 86.2 fl (80.0-96.0); PLATELET COUNT, AUTOMATED 191 10^3/uL (150-450); RED BLOOD COUNT 3.04 10^6/uL (4.30-6.10); WHITE BLOOD COUNT 11.1 10^3/uL (4.0-10.0)
[2019-01-31 05:46] LABS: CALCIUM LEVEL 8.1 MG/DL (8.8-10.2); CREATININE FOR GFR 1.31 MG/DL (0.70-1.30); GLOMERULAR FILTRATION RATE 56.3 (>42); MAGNESIUM LEVEL 1.3 MG/DL (1.8-2.4); POTASSIUM SERUM 3.6 MEQ/L (3.5-5.1)
[2019-01-31] MEDS ORDERED: MAG SULF 1GM/100ML (MAG RUN) 1 GM in IV 1 EA IV ONE (06:15)
--- NOTE | 2019-01-31 06:58 | IPNPDOC ---
Text Note Date of Service The patient was seen on 01/31/19. NOTE Subjective: -On continuous bladder irrigation -Afebrile with no complaint of fever, chills -Had renal US with moderate right hydronephrosis -Per urology, no definitive anatomic abnormalities were noted on cystoscopy Physical Examination General Exam: Alert, Cooperative Eye Exam: PERRLA, Conjunctiva & lids normal ENT Exam: Atraumatic Neck Exam: Supple, no JVD Chest Exam: CTAB, no rales and no wheezing Heart Exam: RRR, no mrg Telemetry: No significant ectopy Abdomen Exam: Normal bowel sounds, non tender, suprapubic catheter in place, on CBI with light pink urine draining. Extremity Exam: WWP, no edema, 2+ DP pulses Skin Exam: Normal turgor and temperature Neuro Exam: Strength at 5/5 X4 ext, Cranial Nerves 3-12 WNL Assessment/Plan 79 years old man with a history of [place], s/p PCI, aortic aneurysm repair, urethral stricture with chronic suprapubic catheter transferred from [facility], where he was admitted for uroseptic shock with blood pressure 70/40, temperature 102.1, tachycardia 113, lactic acid of 2.6 with ongoing gross hematuria for past few months. He had a CT A/P that showed bladder wall thickening suspicious for a mass, and obstructive changes with moderate hydronephrosis of the right collecting system and on 01/29/19 blood culture came back positive for Escherichia coli and remains on meropenem. On 01/29 he had cystoscopy with Dr. Higgins with replacement of the suprapubic catheter and placed on CBI with pending pathology. Prlan E.coli uroseptic shock: Resolved Patient had increased lactic acid level, fever, tachycardia, hypotension on the admission at [facility] on 01/28/19 -s/p fluid resuscitation and Zosyn -On admission to [facility], patient was afebrile with no leukocytosis -Continue meropenem IV -Follow up E.coli sensitivities per [facility] microbiology -Gross hematuria -Findings on CT c/f malignancy with cystoscopy not having identified a mass -Follow up cystoscopy path results -On continuous bladder irrigation per urology -Urology consulted, appreciate recs [place] -Multifactorial intrarenal and prerenal causes -Most likely secondary to obstruction and dehydration secondary to septic shock -s/p IV fluid -Improving, continue to monitor Coronary artery disease -Continue home cardioprotective medication -No chest pain -EKG done this admission was without acute ischemic changes History of hypertension -Normotensive at this time -Continue home meds Acute blood loss anemia: 2/2 hematuria -s/p 2 units of blood -H&H daily unless clinical changes occur Plan / VTE VTE Prophylaxis Ordered?: No VTE Exclusion Pharmacological: Active Bleeding VS,Fishbone, I+O VS, Fishbone, I+O Laboratory Tests 01/30/19 09:21 01/30/19 15:26 01/30/19 17:51 01/30/19 21:30 01/31/19 05:07 Vital Signs Date Time Temp Pulse Resp B/P (MAP) Pulse Ox O2 Delivery O2 Flow Rate FiO2 01/31/19 04:00 99.1 82 16 151/70 (97) 98 Room Air 01/29/19 13:35 2 I&O- Last 24 Hours up to 6 AM 01/31/19 06:00 Intake Total 2300 ml Output Total 2450 ml Balance -150 ml EDGAR JOHNSON MD Jan 31, 2019 06:58
[2019-01-31 08:00] VITALS: BP 144/68
[2019-01-31] MEDS: VITAMIN D (CHOLECALCIFEROL) 400 INTERNATIONAL UNITS TAB PO SCH (09:03)
[2019-01-31] MEDS: OMEPRAZOLE 20 MG CAP PO SCH ×2 (09:03→20:15)
[2019-01-31] MEDS: POTASSIUM CHLORIDE 10 MEQ SR TABLET PO SCH (09:03)
[2019-01-31] MEDS: hydroCHLOROthiazide 12.5 MG CAPSULE PO SCH (09:04)
[2019-01-31] MEDS: METOPROLOL SUCC (TopROL XL) 50MG **XL** TAB PO SCH (09:04)
[2019-01-31] MEDS: LISINOPRIL 20 MG TAB PO SCH (09:04)
[2019-01-31] MEDS: GABAPENTIN 100 MG CAP PO SCH ×3 (09:04→20:15)
[2019-01-31 12:00] VITALS: BP 142/78
--- NOTE | 2019-01-31 14:17 | IPNPDOC ---
Text Note Date of Service The patient was seen on 01/31/19. NOTE Patient was not feeling as well today as yesterday. He just kind of feels "run over by a truck". He is on low CBI though and his urine is now clear and there were no significant blood clots. His H&H this morning was 8.6 over 25.7 down from 9.1 yesterday morning. He was afebrile. His white blood count was elevated a little 11.1. Blood cultures are still negative. His creatinine is down to 1.31 although the ultrasound still showed moderate [place]. Physical exam: He is alert and oriented 3. He had no CVA tenderness. His abdomen was soft and nontender. No calf tenderness. Impression: -Gross hematuria for many months most likely secondary to hemorrhagic cystitis and bullous edema from a long-standing indwelling catheter without any definite evidence of any other abnormalities seen in the bladder on cystoscopy 01/29/19 but in a patient requiring 5 units of packed red blood cells -Urosepsis now doing much better with normal blood pressure, afebrile, and normal white blood count so far with normal blood cultures but we will need to obtain the urine cultures from [facility] -Right hydroureteronephrosis of questionable etiology but possibly secondary to blood clots in the bladder in a patient without any pain on that side -Acute renal insufficiency with daily improvement in his creatinine now down to 1.3 -Long-standing indwelling suprapubic catheter for a history of ureteral strictures which she never wanted to undergo complete reconstructive surgery and now his urethra is completely closed off Plan: -Continue continuous bladder irrigation for now through the suprapubic catheter but try to decrease -Continue every 12 hours H&H while he is still bleeding and we can discontinue this once the bleeding slows down -Continue antibiotic treatment and medical management for his urosepsis -Await final urine culture results from [facility] with sensitivities VS,So, I+O VS, So, I+O Laboratory Tests 01/30/19 15:26 01/30/19 17:51 01/30/19 21:30 01/31/19 05:07 Vital Signs Date Time Temp Pulse Resp B/P (MAP) Pulse Ox O2 Delivery O2 Flow Rate FiO2 01/31/19 12:00 98.5 78 20 142/78 (99) 97 01/31/19 08:00 Room Air 01/29/19 13:35 2 I&O- Last 24 Hours up to 6 AM 01/31/19 06:00 Intake Total 2300 ml Output Total 2450 ml Balance -150 ml SOWMYA REBOLLAR MD Jan 31, 2019 14:15
[2019-01-31 16:00] VITALS: BP 146/72
[2019-01-31] MEDS ORDERED: DIAPER RELIEF PASTE (DESITIN) 60GM TOP SCH (17:00)
[2019-01-31 20:00] VITALS: BP 168/82
[2019-01-31] MEDS: ATORVASTATIN 20 MG TAB PO SCH (20:15)
[2019-02-01] VITALS (15 sets, daily range): BP systolic 134–169; BP diastolic 60–95
[2019-02-01] MEDS: NS 1,000 ML IV SCH (05:30)
[2019-02-01] MEDS: MEROPENEM INJ 1 GM in IV 1 EA IV SCH (05:30)
[2019-02-01 05:31] LABS: HEMATOCRIT 25.8 % (42.0-52.0); HEMOGLOBIN 8.5 g/dl (13.5-17.5); MEAN CORPUSCULAR HEMOGLOBIN 28.5 pg (27.0-33.0); MEAN CORPUSCULAR HGB CONC 32.9 g/dl (32.0-36.5); MEAN CORPUSCULAR VOLUME 86.6 fl (80.0-96.0); PLATELET COUNT, AUTOMATED 206 10^3/uL (150-450); RED BLOOD COUNT 2.98 10^6/uL (4.30-6.10)
[2019-02-01 05:52] LABS: BLOOD UREA NITROGEN 17 MG/DL (7-18); CALCIUM LEVEL 8.1 MG/DL (8.8-10.2); CARBON DIOXIDE LEVEL 22 MEQ/L (21-32); CHLORIDE LEVEL 110 MEQ/L (98-107); CREATININE FOR GFR 1.13 MG/DL (0.70-1.30); GLOMERULAR FILTRATION RATE > 60.0 (>42); GLUCOSE, FASTING 86 MG/DL (70-100); MAGNESIUM LEVEL 1.5 MG/DL (1.8-2.4); POTASSIUM SERUM 3.8 MEQ/L (3.5-5.1); SODIUM LEVEL 139 MEQ/L (136-145)
[2019-02-01] MEDS ORDERED: MAG SULF 1GM/100ML (MAG RUN) 1 GM in IV 1 EA IV ONE (08:00)
--- NOTE | 2019-02-01 08:00 | IPNPDOC ---
Text Note Date of Service The patient was seen on 02/01/19. NOTE Subjective: -Continuous bladder irrigation -Afebrile with no complaint of fever, chills Physical Examination General Exam: Alert, Cooperative Eye Exam: PERRLA, Conjunctiva & lids normal ENT Exam: Atraumatic Neck Exam: no JVD Chest Exam: CTAB, no rales and no wheezing Heart Exam: RRR, no mrg Telemetry: No significant ectopy Abdomen Exam: Normal bowel sounds, non tender, suprapubic catheter in place, on CBI with pink urine draining. Extremity Exam: WWP, no edema, 2+ DP pulses Skin Exam: Normal turgor and temperature Neuro Exam: Strength at 5/5 X4 ext, Cranial Nerves 3-12 WNL Assessment/Plan 79 years old man with a history of [place], s/p PCI, aortic aneurysm repair, urethral stricture with chronic suprapubic catheter transferred from [facility], where he was admitted for uroseptic shock with blood pressure 70/40, temperature 102.1, tachycardia 113, lactic acid of 2.6 with ongoing gross hematuria for past few months. He had a CT A/P that showed bladder wall thickening suspicious for a mass, and obstructive changes with moderate hydronephrosis of the right collecting system and on 01/29/19 blood culture came back positive for Escherichia coli and remains on meropenem. On 01/29 he had cystoscopy with Dr. Higgins with replacement of the suprapubic catheter and placed on CBI with continuing irrigation and pending E.coli sensitivities to de- escalate antibiotics. Prlan E.coli uroseptic shock: Resolved Patient had increased lactic acid level, fever, tachycardia, hypotension on the admission at [facility] on 01/28/19 -s/p fluid resuscitation and Zosyn -On admission to [facility], patient was afebrile with no leukocytosis -Continue meropenem IV -Call [facility] microbiology for sensitivities this morning -Gross hematuria -Findings on CT c/f malignancy with cystoscopy not having identified a mass -Follow up cystoscopy path results -On continuous bladder irrigation per urology, strict I/Os -Urology consulted, appreciate recs [place] -Multifactorial intrarenal and prerenal causes -Most likely secondary to obstruction and dehydration secondary to septic shock -s/p IV fluid -Improving, continue to monitor Coronary artery disease -Continue home cardioprotective medication -No chest pain -EKG done this admission was without acute ischemic changes History of hypertension -Normotensive at this time -Continue home meds Acute blood loss anemia: 2/2 hematuria -s/p 2 units of blood -H&H daily at this point, given stability over the last few days Plan / VTE VTE Prophylaxis Ordered?: No VTE Exclusion Pharmacological: Active Bleeding VS,Fishbone, I+O VS, Fishbone, I+O Laboratory Tests 02/01/19 05:20 Vital Signs Date Time Temp Pulse Resp B/P (MAP) Pulse Ox O2 Delivery O2 Flow Rate FiO2 02/01/19 07:51 98.5 85 18 142/72 (95) 99 Room Air 01/29/19 13:35 2 I&O- Last 24 Hours up to 6 AM 02/01/19 06:00 Intake Total 2250 ml Output Total 2650 ml Balance -400 ml EDGAR JOHNSON MD Feb 01, 2019 08:00
[2019-02-01] MEDS: LISINOPRIL 20 MG TAB PO SCH (09:32)
[2019-02-01] MEDS: GABAPENTIN 100 MG CAP PO SCH ×3 (09:32→21:10)
[2019-02-01] MEDS: hydroCHLOROthiazide 12.5 MG CAPSULE PO SCH (09:32)
[2019-02-01] MEDS: OMEPRAZOLE 20 MG CAP PO SCH ×2 (09:32→21:10)
[2019-02-01] MEDS: METOPROLOL SUCC (TopROL XL) 50MG **XL** TAB PO SCH (09:32)
[2019-02-01] MEDS: VITAMIN D (CHOLECALCIFEROL) 400 INTERNATIONAL UNITS TAB PO SCH (09:32)
[2019-02-01] MEDS: POTASSIUM CHLORIDE 10 MEQ SR TABLET PO SCH (09:33)
--- NOTE | 2019-02-01 10:12 | IPNPDOC ---
Text Note Date of Service The patient was seen on 02/01/19. NOTE Mr. Downs was doing very well on low CBI but last night he did have some blood clots. This morning again he is on very low CBI and the urine is a pale pink. He still is not feeling terrific and his white blood count is 12 despite being on meropenem. I still don't see the final urine culture from [facility]. His H&H is low at 8.5 over 25.8 so I will give him 2 more units of blood. His creatinine has come down to 1.13. Physical exam: He is alert and oriented 3. His heart is regular and his lungs are clear. He has no CVA tenderness. His abdomen is soft and nontender. His calvea no tenderness or swelling. Impression: -Gross hematuria for many months most likely secondary to hemorrhagic cystitis and bullous edema from a long-standing indwelling catheter without any definite evidence of any other abnormalities seen in the bladder on cystoscopy 01/29/19 but in a patient requiring 4 units of packed red blood cells -Urosepsis now doing much better with normal blood pressure, afebrile, and normal white blood count so far with normal blood cultures but we will need to obtain the urine cultures from [facility] -Right hydroureteronephrosis of questionable etiology but possibly secondary to blood clots in the bladder in a patient without any pain on that side -Acute renal insufficiency with daily improvement in his creatinine now down to 1.13 -Long-standing indwelling suprapubic catheter for a history of ureteral strictures which she never wanted to undergo complete reconstructive surgery and now his urethra is completely closed off Plan: -Continue continuous bladder irrigation for now through the suprapubic catheter but try to decrease -Transfused 2 units of blood since he is still feeling so lousy -Continue antibiotic treatment and medical management for his urosepsis -Await final urine culture results from [facility] with sensitivities VS,So, I+O VS, [place], I+O Laboratory Tests 02/01/19 05:20 Vital Signs Date Time Temp Pulse Resp B/P (MAP) Pulse Ox O2 Delivery O2 Flow Rate FiO2 02/01/19 09:32 85 142/72 02/01/19 07:51 98.5 18 99 Room Air 01/29/19 13:35 2 I&O- Last 24 Hours up to 6 AM 02/01/19 06:00 Intake Total 2250 ml Output Total 2650 ml Balance -400 ml SOWMYA REBOLLAR MD Feb 01, 2019 10:12
[2019-02-01] MEDS: CEPHALEXIN 500 MG CAP PO SCH (16:56)
[2019-02-01] MEDS: ATORVASTATIN 20 MG TAB PO SCH (21:10)
[2019-02-02] VITALS (7 sets, daily range): BP systolic 152–168; BP diastolic 64–78
[2019-02-02] MEDS: NS 1,000 ML IV SCH ×2 (04:20→18:09)
[2019-02-02] MEDS: CEPHALEXIN 500 MG CAP PO SCH ×2 (04:20→15:39)
[2019-02-02 05:03] LABS: HEMATOCRIT 30.9 % (42.0-52.0); HEMOGLOBIN 10.1 g/dl (13.5-17.5); MEAN CORPUSCULAR HEMOGLOBIN 28.3 pg (27.0-33.0); MEAN CORPUSCULAR HGB CONC 32.7 g/dl (32.0-36.5); MEAN CORPUSCULAR VOLUME 86.6 fl (80.0-96.0); PLATELET COUNT, AUTOMATED 227 10^3/uL (150-450); RED BLOOD COUNT 3.57 10^6/uL (4.30-6.10); WHITE BLOOD COUNT 15.2 10^3/uL (4.0-10.0)
[2019-02-02 05:22] LABS: BLOOD UREA NITROGEN 16 MG/DL (7-18); CALCIUM LEVEL 8.1 MG/DL (8.8-10.2); CARBON DIOXIDE LEVEL 22 MEQ/L (21-32); CHLORIDE LEVEL 108 MEQ/L (98-107); CREATININE FOR GFR 1.13 MG/DL (0.70-1.30); GLOMERULAR FILTRATION RATE > 60.0 (>42); GLUCOSE, FASTING 94 MG/DL (70-100); MAGNESIUM LEVEL 1.6 MG/DL (1.8-2.4); POTASSIUM SERUM 3.9 MEQ/L (3.5-5.1); SODIUM LEVEL 137 MEQ/L (136-145)
--- NOTE | 2019-02-02 07:38 | IPNPDOC ---
Text Note Date of Service The patient was seen on 02/02/19. NOTE Interim events: -[facility] micro data showed pansensitive E.coli--> switched from meropenem to PO keflex -Had 2u of blood per urology Subjective: -Continuous bladder irrigation continues -Afebrile with no complaint of fever, chills Physical Examination General Exam: Alert, Cooperative Eye Exam: PERRLA, Conjunctiva & lids normal ENT Exam: Atraumatic Neck Exam: no JVD Chest Exam: CTAB, no rales and no wheezing Heart Exam: RRR, no mrg Telemetry: No significant ectopy Abdomen Exam: Normal bowel sounds, non tender, suprapubic catheter in place, on CBI with reddish urine draining. Extremity Exam: WWP, no edema, 2+ DP pulses Skin Exam: Normal turgor and temperature Neuro Exam: Strength at 5/5 X4 ext, Cranial Nerves 3-12 WNL Assessment/Plan 79 years old man with a history of [place], s/p PCI, aortic aneurysm repair, urethral stricture with chronic suprapubic catheter transferred from [facility], where he was admitted for uroseptic shock with blood pressure 70/40, temperature 102.1, tachycardia 113, lactic acid of 2.6 with ongoing gross hematuria for past few months. He had a CT A/P that showed bladder wall thickening suspicious for a mass, and obstructive changes with moderate hydronephrosis of the right collecting system and on 01/29/19 blood culture came back positive for Escherichia coli initially placed on empiric meropenem and now de-escalated to keflex after sensitivities. On 01/29 he had cystoscopy with Dr. Higgins with replacement of the suprapubic catheter and placed on CBI with continuing irrigation with course c/b continuing blood loss anemia for which he had 2u of blood yesterday with an appropriate response at this time. Plan E.coli uroseptic shock: Resolved Patient had increased lactic acid level, fever, tachycardia, hypotension on the admission at [facility] on 01/28/19 -s/p fluid resuscitation and Zosyn, meropenem, now de-escalated to keflex on 02/01 for pansensitive E.coli -Gross hematuria -Findings on CT c/f malignancy with cystoscopy not having identified a mass -Follow up cystoscopy path results -On continuous bladder irrigation per urology, strict I/Os -Urology consulted, appreciate recs -s/p 2 more units of pRBC on 02/01 with appropriate response this AM, 4 total this admission [place] -Multifactorial intrarenal and prerenal causes -Most likely secondary to obstruction and dehydration secondary to septic shock -s/p IV fluid -Improving, continue to monitor Coronary artery disease -Continue home cardioprotective medication -No chest pain -EKG done this admission was without acute ischemic changes History of hypertension -Normotensive at this time -Continue home meds Acute blood loss anemia: 2/2 hematuria -s/p 4 units of blood -H&H daily Plan / VTE VTE Prophylaxis Ordered?: No VTE Exclusion Pharmacological: Active Bleeding VS,Fishbone, I+O VS, Fishbone, I+O Laboratory Tests 02/02/19 04:33 Vital Signs Date Time Temp Pulse Resp B/P (MAP) Pulse Ox O2 Delivery O2 Flow Rate FiO2 02/02/19 04:00 99.0 82 20 158/76 (103) 96 Room Air 01/29/19 13:35 2 I&O- Last 24 Hours up to 6 AM 02/02/19 06:00 Intake Total 2105 ml Output Total 2475 ml Balance -370 ml EDGAR JOHNSON MD Feb 02, 2019 07:38
[2019-02-02] MEDS: MAG SULF 1GM/100ML (MAG RUN) 1 GM in IV 1 EA IV SCH ×2 (08:14→09:29)
[2019-02-02] MEDS: VITAMIN D (CHOLECALCIFEROL) 400 INTERNATIONAL UNITS TAB PO SCH (08:40)
[2019-02-02] MEDS: METOPROLOL SUCC (TopROL XL) 50MG **XL** TAB PO SCH (08:41)
[2019-02-02] MEDS: hydroCHLOROthiazide 12.5 MG CAPSULE PO SCH (08:41)
[2019-02-02] MEDS: GABAPENTIN 100 MG CAP PO SCH ×3 (08:41→20:58)
[2019-02-02] MEDS: LISINOPRIL 20 MG TAB PO SCH (08:41)
[2019-02-02] MEDS: POTASSIUM CHLORIDE 10 MEQ SR TABLET PO SCH (08:41)
[2019-02-02] MEDS: OMEPRAZOLE 20 MG CAP PO SCH ×2 (08:41→20:59)
[2019-02-02] MEDS: BELLADONNA 16.2mg/OPIUM 30mg 1 EA SUPP PR PRN ×2 (09:36→18:04)
--- NOTE | 2019-02-02 11:38 | IPNPDOC ---
Text Note Date of Service The patient was seen on 02/02/19. NOTE Patient is feeling better after blood transfusion yesterday with a little more energy. He was up and walking. His urine is completely clear right now on low CBI but it sounds like whenever they try to turn this off that the urine gets bloodier and he does get more blood clots. Wondering when he can go home but we discussed that we need to wait until he is off CBI. Physical examination: He is alert and oriented 3. His heart is regular. His lungs are clear. He has no CVA tenderness. His abdomen is soft but he does get bladder spasms. His extremities show no cyanosis clubbing or edema. Impression: -Gross hematuria for many months most likely secondary to hemorrhagic cystitis and bullous edema from a long-standing indwelling catheter without any definite evidence of any other abnormalities seen in the bladder on cystoscopy 01/29/19 but in a patient requiring 4 units of packed red blood cells -Urosepsis now doing much better with normal blood pressure, afebrile, and normal white blood count so far with normal blood cultures but we will need to obtain the urine cultures from [facility] showed pansensitive Escherichia coli -Right hydroureteronephrosis of questionable etiology but possibly secondary to blood clots in the bladder in a patient without any pain on that side -Acute renal insufficiency with daily improvement in his creatinine now down to 1.13 and now stable -Long-standing indwelling suprapubic catheter for a history of ureteral strictures which she never wanted to undergo complete reconstructive surgery and now his urethra is completely closed off Plan: -Continue continuous bladder irrigation for now through the suprapubic catheter but try to decrease and once this is able to be turned off from a urologic standpoint the patient can be discharged home -Continue antibiotic treatment and medical management for his urosepsis VS,Fishbone, I+O VS, Fishbone, I+O Laboratory Tests 02/02/19 04:33 Vital Signs Date Time Temp Pulse Resp B/P (MAP) Pulse Ox O2 Delivery O2 Flow Rate FiO2 02/02/19 08:41 84 152/76 02/02/19 08:00 98.7 20 97 Room Air 01/29/19 13:35 2 I&O- Last 24 Hours up to 6 AM 02/02/19 06:00 Intake Total 2105 ml Output Total 2475 ml Balance -370 ml SOWMYA REBOLLAR MD Feb 02, 2019 11:37
[2019-02-02] MEDS: ATORVASTATIN 20 MG TAB PO SCH (20:58)
[2019-02-03] VITALS (7 sets, daily range): BP systolic 122–170; BP diastolic 62–78
[2019-02-03] MEDS: CEPHALEXIN 500 MG CAP PO SCH ×2 (04:18→16:11)
[2019-02-03 05:04] LABS: HEMOGLOBIN 10.1 g/dl (13.5-17.5); MEAN CORPUSCULAR HEMOGLOBIN 28.2 pg (27.0-33.0); MEAN CORPUSCULAR HGB CONC 32.6 g/dl (32.0-36.5); MEAN CORPUSCULAR VOLUME 86.6 fl (80.0-96.0); PLATELET COUNT, AUTOMATED 242 10^3/uL (150-450); RED BLOOD COUNT 3.58 10^6/uL (4.30-6.10)
[2019-02-03 05:28] LABS: BLOOD UREA NITROGEN 15 MG/DL (7-18); CALCIUM LEVEL 8.1 MG/DL (8.8-10.2); CARBON DIOXIDE LEVEL 25 MEQ/L (21-32); CHLORIDE LEVEL 111 MEQ/L (98-107); CREATININE FOR GFR 1.15 MG/DL (0.70-1.30); GLOMERULAR FILTRATION RATE > 60.0 (>42); GLUCOSE, FASTING 90 MG/DL (70-100); MAGNESIUM LEVEL 1.9 MG/DL (1.8-2.4); POTASSIUM SERUM 4.5 MEQ/L (3.5-5.1); SODIUM LEVEL 140 MEQ/L (136-145)
[2019-02-03] MEDS: GABAPENTIN 100 MG CAP PO SCH ×3 (09:08→20:44)
[2019-02-03] MEDS: OMEPRAZOLE 20 MG CAP PO SCH ×2 (09:08→20:44)
[2019-02-03] MEDS: LISINOPRIL 20 MG TAB PO SCH (09:08)
[2019-02-03] MEDS: POTASSIUM CHLORIDE 10 MEQ SR TABLET PO SCH (09:08)
[2019-02-03] MEDS: hydroCHLOROthiazide 12.5 MG CAPSULE PO SCH (09:08)
[2019-02-03] MEDS: VITAMIN D (CHOLECALCIFEROL) 400 INTERNATIONAL UNITS TAB PO SCH (09:09)
[2019-02-03] MEDS: METOPROLOL SUCC (TopROL XL) 50MG **XL** TAB PO SCH (09:09)
--- NOTE | 2019-02-03 12:58 | IPNPDOC ---
Text Note Date of Service The patient was seen on 02/03/19. NOTE Mr. Yanez is very frustrated because he would like to go home. Unfortunately he is still on low-dose CBI but we will try to turn this off completely and have him the hand irrigate and see how this goes today. We again long-term options if the bleeding does not stop and most likely this would consist of an ileal conduit. At this point his H&H is stable. He was placed on Keflex yesterday and his white blood count increased to 15. His creatinine has stabilized at 1.15. Physical examination: He is alert and oriented 3. His heart is regular. His lungs are clear. He has no CVA tenderness. His abdomen is soft but he does get bladder spasms. His extremities show no cyanosis clubbing or edema. Impression: -Gross hematuria for many months most likely secondary to hemorrhagic cystitis and bullous edema from a long-standing suprapubic catheter without any definite evidence of any other abnormalities seen in the bladder on cystoscopy 01/29/19 but in a patient requiring 4 units of packed red blood cells -Urosepsis now doing much better with normal blood pressure, afebrile, and normal white blood count so far with normal blood cultures and urine cultures from [facility] showed pansensitive Escherichia coli but his white blood count is back up to 15,000 -Right hydroureteronephrosis of questionable etiology but possibly secondary to blood clots in the bladder in a patient without any pain on that side -Acute renal insufficiency with daily improvement in his creatinine now down to 1.15 and now stable -Long-standing indwelling suprapubic catheter for a history of ureteral strictures which she never wanted to undergo complete reconstructive surgery and now his urethra is completely closed off Plan: -Try to stop CBI and teach the patient and his had a hand irrigate and see if it is possible that he can go home like this once he is medically stabilized -Continue antibiotic treatment and medical management for his urosepsis VSSo, I+O VSSo, I+O Laboratory Tests 02/03/19 04:38 Vital Signs Date Time Temp Pulse Resp B/P (MAP) Pulse Ox O2 Delivery O2 Flow Rate FiO2 02/03/19 12:00 98.0 79 18 146/62 (90) 97 Room Air 01/29/19 13:35 2 I&O- Last 24 Hours up to 6 AM 02/03/19 05:59 Intake Total 1800 ml Output Total 4325 ml Balance -2525 ml SOWMYA REBOLLAR MD Feb 03, 2019 12:58
--- NOTE | 2019-02-03 16:20 | IPNPDOC ---
Text Note Date of Service The patient was seen on 02/03/19. NOTE Interim events: -persistent though improving hematuria with trial clamping -stable H/H -leukocytosis now at 15 from - after switch from meropenem to keflex for pansensitive E.coli without new fevers Subjective: -Continuous bladder irrigation is intermittently held -Afebrile with no complaint of fever, chills -Frustrated, would like to go home, reporting that his hematuria is chronic and clearance may not be a reachable goal Physical Examination General Exam: Alert, Cooperative Eye Exam: PERRLA, Conjunctiva & lids normal ENT Exam: Atraumatic Neck Exam: no JVD Chest Exam: CTAB, no rales and no wheezing Heart Exam: RRR, no mrg Abdomen Exam: Normal bowel sounds, non tender, suprapubic catheter in place, on CBI with reddish urine draining. Extremity Exam: WWP, no edema, 2+ DP pulses Skin Exam: Normal turgor and temperature Neuro Exam: Strength at 5/5 X4 ext, Cranial Nerves 3-12 WNL Assessment/Plan 79 years old man with a history of UT, s/p PCI, aortic aneurysm repair, urethral stricture with chronic suprapubic catheter transferred from [facility], where he was admitted for uroseptic shock with blood pressure 70/40, temperature 102.1, tachycardia 113, lactic acid of 2.6 with ongoing gross hematuria for past few months. He had a CT A/P that showed bladder wall thickening suspicious for a mass, and obstructive changes with moderate hydronep hrosis of the right collecting system and on 01/29/19 blood culture came back positive for Escherichia coli initially placed on empiric meropenem and now de- escalated to keflex after sensitivities. On 01/29 he had cystoscopy with Dr. Higgins with replacement of the suprapubic catheter and placed on CBI with continuing irrigation with course c/b continuing blood loss anemia for which he packed red cells, currently stable. Plan E.coli uroseptic shock: Resolved Patient had increased lactic acid level, fever, tachycardia, hypotension on the admission at [facility] on 01/28/19 -s/p fluid resuscitation and Zosyn, meropenem, now de-escalated to keflex on 02/01 for pansensitive E.coli -Monitor leukocytosis, should ideally be covered with keflex -Gross hematuria -Findings on CT c/f malignancy with cystoscopy not having identified a mass -Follow up cystoscopy path results -On continuous bladder irrigation per urology, strict I/Os -Urology consulted, appreciate recs -s/p 2 more units of pRBC on 02/01 with appropriate sustained response, 4 total this admission [place]: resolved -Multifactorial intrarenal and prerenal causes -Most likely secondary to obstruction and dehydration secondary to septic shock -s/p IV fluid -Continue to monitor Coronary artery disease -Continue home cardioprotective medication -No chest pain -EKG done this admission was without acute ischemic changes History of hypertension -Normotensive at this time -Continue home meds Acute blood loss anemia: 2/2 hematuria -s/p 4 units of blood -H&H daily Plan / VTE VTE Prophylaxis Ordered?: No VTE Exclusion Pharmacological: Active Bleeding Dispo: will plan on discharge home if leukocytosis is stable to downtrending, while afebrile and hemodynamically stable, as well as stable H/H with plan for teaching the patient and his hand irrigation (per urology). VS,Fishbone, I+O VS, Fishbone, I+O Laboratory Tests 02/03/19 04:38 Vital Signs Date Time Temp Pulse Resp B/P (MAP) Pulse Ox O2 Delivery O2 Flow Rate FiO2 02/03/19 12:00 98.0 79 18 146/62 (90) 97 Room Air 01/29/19 13:35 2 I&O- Last 24 Hours up to 6 AM 02/03/19 06:00 Intake Total 1800 ml Output Total 4325 ml Balance -2525 ml EDGAR JOHNSON MD Feb 03, 2019 16:20
[2019-02-03] MEDS: ATORVASTATIN 20 MG TAB PO SCH (20:44)
[2019-02-04] VITALS: BP 144/72
[2019-02-04 04:00] VITALS: BP_SYST 129; BP_SYST 158; BP_DIAS 64; BP_DIAS 76
[2019-02-04] MEDS: CEPHALEXIN 500 MG CAP PO SCH (04:06)
[2019-02-04 05:29] LABS: HEMATOCRIT 32.2 % (42.0-52.0); HEMOGLOBIN 10.2 g/dl (13.5-17.5); MEAN CORPUSCULAR HEMOGLOBIN 27.9 pg (27.0-33.0); MEAN CORPUSCULAR HGB CONC 31.7 g/dl (32.0-36.5); MEAN CORPUSCULAR VOLUME 88.2 fl (80.0-96.0); PLATELET COUNT, AUTOMATED 258 10^3/uL (150-450); RED BLOOD COUNT 3.65 10^6/uL (4.30-6.10); WHITE BLOOD COUNT 12.6 10^3/uL (4.0-10.0)
[2019-02-04 05:48] LABS: BLOOD UREA NITROGEN 14 MG/DL (7-18); CALCIUM LEVEL 8.5 MG/DL (8.8-10.2); CARBON DIOXIDE LEVEL 25 MEQ/L (21-32); CHLORIDE LEVEL 108 MEQ/L (98-107); CREATININE FOR GFR 1.21 MG/DL (0.70-1.30); GLOMERULAR FILTRATION RATE > 60.0 (>42); GLUCOSE, FASTING 86 MG/DL (70-100); MAGNESIUM LEVEL 1.7 MG/DL (1.8-2.4); POTASSIUM SERUM 4.5 MEQ/L (3.5-5.1); SODIUM LEVEL 139 MEQ/L (136-145)
[2019-02-04 07:18] VITALS: BP 178/75
--- NOTE | 2019-02-04 09:48 | IPNPDOC ---
Text Note Date of Service The patient was seen on 02/04/19. NOTE Patient has not had any blood clots in his urine is clear off of CBI. His white blood count is still slightly elevated at 12.6 but he is feeling very well and his H&H has been stable as has his creatinine. He would like to go home. Physical examination: He is alert and oriented 3. His heart is regular. His lungs are clear. He has no CVA tenderness. His abdomen is soft but he does get bladder spasms. His extremities show no cyanosis clubbing or edema. Impression: -Gross hematuria for many months most likely secondary to hemorrhagic cystitis and bullous edema from a long-standing suprapubic catheter without any definite evidence of any other abnormalities seen in the bladder on cystoscopy 01/29/19 but in a patient requiring 4 units of packed red blood cells -Urosepsis now doing much better with normal blood pressure, afebrile, and normal white blood count so far with normal blood cultures and urine cultures from [facility] showed pansensitive Escherichia coli -Right hydroureteronephrosis of questionable etiology but possibly secondary to blood clots in the bladder in a patient without any pain on that side and creatinine back to baseline -Long-standing indwelling suprapubic catheter for a history of ureteral strictures which she never wanted to undergo complete reconstructive surgery and now his urethra is completely closed off Plan: -Patient to go home with the suprapubic catheter and hand irrigated as needed -Continue antibiotic treatment for a total of 10-14 days -Start Ditropan ER 10 mg to help with bladder spasms -Follow-up with Dr. Cavazos and if bleeding continues then a another course of action will need to be considered VS,Justinee, I+O VS, Baldobone, I+O Laboratory Tests 02/04/19 04:41 Vital Signs Date Time Temp Pulse Resp B/P (MAP) Pulse Ox O2 Delivery O2 Flow Rate FiO2 02/04/19 07:18 98.2 79 18 178/75 (109) 96 Nasal Cannula 01/29/19 13:35 2 I&O- Last 24 Hours up to 6 AM 02/04/19 06:00 Intake Total 840 ml Output Total 3250 ml Balance -2410 ml SOWMYA REBOLLAR MD Feb 04, 2019 09:48
[2019-02-04] MEDS: VITAMIN D (CHOLECALCIFEROL) 400 INTERNATIONAL UNITS TAB PO SCH (10:06)
[2019-02-04 10:07] VITALS: BP 164/70
[2019-02-04] MEDS: GABAPENTIN 100 MG CAP PO SCH (10:07)
[2019-02-04] MEDS: METOPROLOL SUCC (TopROL XL) 50MG **XL** TAB PO SCH (10:07)
[2019-02-04] MEDS: POTASSIUM CHLORIDE 10 MEQ SR TABLET PO SCH (10:07)
[2019-02-04] MEDS: hydroCHLOROthiazide 12.5 MG CAPSULE PO SCH (10:08)
[2019-02-04] MEDS: OMEPRAZOLE 20 MG CAP PO SCH (10:08)
[2019-02-04] MEDS: LISINOPRIL 20 MG TAB PO SCH (10:08)
[2019-02-04] MEDS ORDERED: DITR1TAB PO (10:25)
[2019-02-04] MEDS ORDERED: POTA20TA6 PO (10:25)
[2019-02-04] MEDS ORDERED: CEPH500C PO (10:25)
--- NOTE | 2019-02-04 19:07 | DS.PDOC ---
Discharge Summary General Date of Admission Jan 28, 2019 at 10:25 Date of Discharge 02/04/2019 Attending Physician: EDGAR JOHNSON MD Specialist/Consultants Involve: SOWMYA REBOLLAR MD Discharge Summary PROCEDURES PERFORMED DURING STAY: cystoscopy on 01/29/2019 ADMITTING DIAGNOSES: 1. Uroseptic shock DISCHARGE DIAGNOSES: 1. Septic shock 2. Urinary tract infection 3. hemorrhagic cystitis 4. chronic urinary strictures 5. chronic suprapubic catheter 6. hypertension 7.CAD COMPLICATIONS/CHIEF COMPLAINT: Urosepsis. HISTORY OF PRESENT ILLNESS: . HOSPITAL COURSE: 79 years old man with a history of AL, s/p PCI, aortic aneurysm repair, urethral stricture with chronic suprapubic catheter transferred from [facility], where he was admitted for uroseptic shock with blood pressure 70/40, temperature 102.1, tachycardia 113, lactic acid of 2.6 with ongoing gross hematuria for past few months. He had a CT A/P that showed bladder wall thickening suspicious for a mass, and obstructive changes with moderate hydronephrosis of the right collecting system and on 01/29/19 blood culture came back positive for Escherichia coli initially placed on empiric meropenem that was eventually de-escalated to keflex after sensitivities. On 01/29 he had cystoscopy with Dr. Rebollar with replacement of the suprapubic catheter that showed no atul pathology and took biopsies and placed on CBI with continuous irrigation with course c/b continuing blood loss anemia for which he had a total of 4 units of packed red cells. His hematuria persisted until the patient and the urologist both agreed that this is a chronic issue for him and he would likely not have sustained clear urine but have to accept some degree of bleeding and made plan to discharge him home with PRN manual irrigation which he confirmed knowledge on how to perform it. He is therefore being discharged home with urology follow up and 4 more days of BID keflex to complete a 12 day course for a complicated UTI. DISCHARGE MEDICATIONS: Please see below. ALLERGIES: Please see below. PHYSICAL EXAMINATION ON DISCHARGE: General Exam: Alert, Cooperative Eye Exam: PERRLA, Conjunctiva & lids normal ENT Exam: Atraumatic Neck Exam: no JVD Chest Exam: CTAB, no rales and no wheezing Heart Exam: RRR, no mrg Abdomen Exam: Normal bowel sounds, non tender, suprapubic catheter in place, on CBI with reddish urine draining. Extremity Exam: WWP, no edema, 2+ DP pulses Skin Exam: Normal turgor and temperature Neuro Exam: Strength at 5/5 X4 ext, Cranial Nerves 3-12 WNL LABORATORY DATA: Please see below. IMAGIN/29: renal US Moderate right-sided hydronephrosis new from the comparison CT study June 18, 2018. The 5 cm right adrenal mass observed on that prior CT study was not visualized sonographically today. No left-sided hydronephrosis is seen. There is marked thickening of the urinary bladder wall. Suprapubic catheter in place. PROGNOSIS: Good ACTIVITY: As tolerated DIET: regular DISCHARGE PLAN: Home to complete antibiotic course and to follow up with urology DISPOSITION: 01 Home, Self-Care. DISCHARGE INSTRUCTIONS: 1. Please complete the antibiotics and follow up with your urologist within 1 to 2 weeks ITEMS TO FOLLOWUP ON ON OUTPATIENT: 1. Hemorrhagic cystitis 2. Resolution of UTI DISCHARGE CONDITION: Stable TIME SPENT ON DISCHARGE: Greater than 25 minutes. Vital Signs/I&Os Vital Signs Date Time Temp Pulse Resp B/P (MAP) Pulse Ox O2 Delivery O2 Flow Rate FiO2 02/04/19 10:07 82 164/70 02/04/19 07:18 98.2 18 96 Nasal Cannula 01/29/19 13:35 2 I&O- Last 24 Hours up to 6 AM 02/04/19 06:00 Intake Total 840 ml Output Total 3250 ml Balance -2410 ml Laboratory Data Labs 24H Laboratory Tests 2 02/04/19 04:41: Nucleated Red Blood Cells % (auto) 0.0, Anion Gap 6L, Glomerular Filtration Rate > 60.0, Calcium Level 8.5L, Magnesium Level 1.7L CBC/BMP Laboratory Tests 02/04/19 04:41 Microbiology Microbiology 01/28/19 Blood Culture - Final, Complete NO GROWTH AFTER 5 DAYS 01/28/19 Blood Culture - Final, Complete NO GROWTH AFTER 5 DAYS Discharge Medications Scheduled Atorvastatin Calcium (Atorvastatin Calcium) 40 Mg Tab, 40 MG PO QHS, (Reported) Cephalexin (Cephalexin) 500 Mg Capsule, 500 MG PO Q12H Cholecalciferol (Vitamin D3) (Vitamin D3) 400 Unit Tablet, 400 UNIT PO DAILY, (Reported) Finasteride (Finasteride) 5 Mg Tab, 5 MG PO QHS, (Reported) Gabapentin (Gabapentin) 100 Mg Cap, 100 MG PO TID, (Reported) Hydrochlorothiazide (Hydrochlorothiazide) 12.5 Mg Cap, 12.5 MG PO DAILY, (Reported) Lisinopril (Lisinopril) 20 Mg Tab, 20 MG PO DAILY, (Reported) Metoprolol Succinate (Metoprolol Succinate) 50 Mg Tab, 50 MG PO DAILY, (Repo rted) Multivitamin (Multivitamins) 1 Cap Cap, 1 CAP PO DAILY, (Reported) Omeprazole (Omeprazole) 20 Mg Cap, 20 MG PO BID, (Reported) Oxybutynin Chloride (Ditropan Xl) 10 Mg Tab.er.24, 10 MG PO DAILY Potassium Chloride (Potassium Chloride) 20 Meq Tab.er.prt, 1 TAB PO DAILY Scheduled PRN Acetaminophen (Acetaminophen) 325 Mg Tab, 650 MG PO Q8H PRN for PAIN / FEVER, (Reported) Nitroglycerin (Nitroglycerin) 0.4 Mg Sub, 0.4 MG SL NITRO PRN for CHEST PAIN, (Reported) Nystatin/Triamcin (Nystatin-Triamcinolone Ointm) 1 Oin Oin, 1 APLCT TOP QID PRN for RASH AROUND CATHETER, (Reported) apply to affected area(s) Allergies Coded Allergies: No Known Allergies (Unverified , 01/28/19) EDGAR JOHNSON MD Feb 04, 2019 19:07
== END 2019-02-04 12:20 | disposition home or self-care (01) | DRG 872 ==
LOC: M PCU 10:25
PROVIDERS: ADMIT Internal Medicine; ATTEND Internal Medicine
PROC: 0TCB8ZZ Extirpation of Matter from Bladder, Via Natural or Artificial Opening Endoscopic (ICD-10-PCS; 2019-01-29)
PROC: 30233N1 Transfusion of Nonautologous Red Blood Cells into Peripheral Vein, Percutaneous Approach (ICD-10-PCS; 2019-01-29)
PROC: 0T9B80Z Drainage of Bladder with Drainage Device, Via Natural or Artificial Opening Endoscopic (ICD-10-PCS; principal; 2019-01-29 11:30)
DX: A41.9 Sepsis, unspecified organism (principal); N17.9 Acute kidney failure, unspecified; N13.30 Unspecified hydronephrosis; D62 Acute posthemorrhagic anemia; R65.20 Severe sepsis without septic shock; K21.9 Gastro-esophageal reflux disease without esophagitis; N30.91 Cystitis, unspecified with hematuria; I73.9 Peripheral vascular disease, unspecified; R31.0 Gross hematuria; I25.10 Atherosclerotic heart disease of native coronary artery without angina pectoris; I25.2 Old myocardial infarction; Z95.5 Presence of coronary angioplasty implant and graft; B96.20 Unspecified Escherichia coli [E. coli] as the cause of diseases classified elsewhere; Z79.82 Long term (current) use of aspirin; Z79.899 Other long term (current) drug therapy; Z87.891 Personal history of nicotine dependence

== ENCOUNTER → 2019-03-06 | Outpatient (REF) | payer MEDICARE ==
[~2019-03-06] MED LIST changes: +CEPH500C PO; +CHOL400T PO; +CVS400CA PO; +DITR1TAB PO; +ECOT81TA5 PO; +FURO80VL IM; +LEVO1INJ4 IV; +OMEP-172 PO; -OMEP20CA4 PO; +POTA1TAB14 PO; +POTA20TA6 PO; +TOPR100T PO; +ZOSY1INJ5 IV; +[UNRECOGNIZED DRUG - CODE] IV; +[UNRECOGNIZED DRUG - CODE] IV
[2019-03-06 17:48] LABS: APPEARANCE, URINE MANUAL TURBID (CLEAR); COLOR, URINE MANUAL RED (YELLOW)
[2019-03-06 17:50] LABS: BACTERIA, URINE NONE SEEN; BILIRUBIN, URINE MANUAL NEGATIVE (NEGATIVE); BLOOD URINE MANUAL POSITIVE (NEGATIVE); GLUCOSE, URINE (UA) MANUAL NEGATIVE (NEGATIVE); HYALINE CAST, URINE NONE SEEN /lpf (0-1); KETONE, URINE MANUAL NEGATIVE (NEGATIVE); LEUKOCYTE ESTERASE, URINE MAN TRACE (NEGATIVE); NITRITE, URINE MANUAL NEGATIVE (NEGATIVE); PROTEIN, URINE MANUAL 3+ mg/dL (NEGATIVE); RBC, URINE TNTC /hpf (0-3); SQUAMOUS EPITHELIAL CELL URINE SMALL AMOUNT /hpf (SMALL AMT); TRANSITIONAL EPI CELLS, URINE SMALL AMOUNT /hpf; UROBILINOGEN, URINE MANUAL NORMAL (NORMAL); WBC, URINE NONE SEEN /hpf (0-3)
== END ==
LOC: M SMT 17:01
PROVIDERS: ATTEND Nurse Practitioner Family
DX: Z01.818 Encounter for other preprocedural examination (principal); N13.30 Unspecified hydronephrosis; Z93.59 Other cystostomy status

== ENCOUNTER 2019-03-14 09:36 | Day surgery (SDC) | payer MEDICARE ==
[~2019-03-14] VITALS: Ht 175.3 cm; Wt 71.7 kg
[~2019-03-14 09:36] MED LIST changes: -CVS400CA PO; -ECOT81TA5 PO; +LR 1,000 ML IV ONE; -TOPR100T PO; +ceFAZolin SOD 2 GM in IV 1 EA IV ONE
[2019-03-14] MEDS ORDERED: CIPR-250 PO (10:45)
[2019-03-14] MEDS ORDERED: ECOT81TA5 PO (10:48)
[2019-03-14] MEDS ORDERED: dexameTHASONE 4 MG/ML 1ML VIAL (J1100) As Ordered ONE (10:52)
[2019-03-14] MEDS ORDERED: ONDANSETRON 4MG/2ML VIAL (J2405) As Ordered ONE (10:52)
[2019-03-14] MEDS ORDERED: fentaNYL 100 MCG/2 ML INJECTION (J3010) As Ordered ONE (10:52)
[2019-03-14] MEDS ORDERED: MIDAZOLAM INJ 2 MG/2 ML VIAL (J2250) As Ordered ONE (10:52)
[2019-03-14] MEDS ORDERED: LIDOCAINE 2% INJ 100 MG/5 ML SDV (FOR ANES.) As Ordered ONE (10:52)
[2019-03-14] MEDS ORDERED: PROPOFOL 200 MG/20 ML VIAL As Ordered ONE (10:52)
[2019-03-14] MEDS ORDERED: CONRAY-60 60% 50ML VIAL (Q9961) As Ordered ONE (12:01)
[2019-03-14] MEDS ORDERED: PHENYLephrine HCL 500 MCG/5 ML (100MCG/ML) SYRINGE (J2370) As Ordered ONE ×2 (12:32→13:22)
[2019-03-14] MEDS ORDERED: LR 1,000 ML IV SCH (14:00)
[2019-03-14] MEDS ORDERED: ONDANSETRON 4MG/2ML VIAL (J2405) IV PRN (14:00)
[2019-03-14] MEDS ORDERED: fentaNYL 100 MCG/2 ML INJECTION (J3010) IV PRN (14:00)
[2019-03-14] MEDS ORDERED: PERCOCET 5MG/325MG TAB PO PRN (14:00)
[2019-03-14] MEDS ORDERED: METOCLOPRAMIDE INJ 10MG/2ML VIAL (J2765) IV PRN (14:00)
--- NOTE | 2019-03-14 14:00 | RO ---
DATE OF PROCEDURE: 03/14/2019 PREPROCEDURE DIAGNOSES: Right hydronephrosis, gross hematuria. POSTPROCEDURE DIAGNOSES: Right hydronephrosis, gross hematuria, urethral strictures. PROCEDURE: Cystoscopy, clot evacuation. SURGEON: Eric Cavazos MD PIT FURNACE OPERATOR: None. ANESTHESIA: General. OPERATIVE INDICATIONS: This is a 79-year-old male with urethral stricture disease managed with a chronic suprapubic catheter who has been having gross hematuria and was also to found to have right hydronephrosis of unknown cause on recent CAT scan. He was brought to the operating room today to try to investigate the cause of hydronephrosis and place a stent, and to also investigate the cause of gross hematuria. DESCRIPTION OF PROCEDURE: The patient was brought to the operating room where general anesthesia was induced. Prophylactic antibiotics were infused. He was patient was then placed in the dorsal lithotomy position and prepped and draped in the usual sterile fashion. At this point, I tried to insert a rigid cystoscope into the urethral meatus but it would not go advance in due to a completely obliterated urethra. I tried to dilate the urethra with metal sounds and it would not dilate at all. I therefore decided to try to scope in through the suprapubic tract. This area was then prepped and a flexible cystoscope was inserted into the bladder. Of note, there were clots in the bladder that I subsequently irrigated out. After irrigating the clots out, I still had a very hard time locating either ureteral orifice. After spending approximately 30 minutes trying to find the ureteral orifices, the decision was made to abort this. Of note, while looking inside the bladder I did not see any source of hematuria. At this point, the cystoscope was removed and a 22-Congolese Giraldo catheter was inserted through the suprapubic tract. The balloon was filled with 7 mL of sterile water and then the catheter was connected to gravity drainage. This marked conclusion of procedure. The patient was taken out of dorsal lithotomy position, awakened from anesthesia and transported to the recovery room in stable condition. Estimated blood loss: 5 mL. Complications: None. Specimens: None. Plan: We will have to set the patient to go to Interventional Radiology for a right percutaneous nephroureteral stent placement. After that I can try to bring him back to the operating room and use that nephroureteral stent to access his right collecting system and perform ureteroscopy. I suspect his hematuria is coming from his right collecting system. JERRI
[2019-03-14] MEDS ORDERED: ACETAMINOPHEN TAB 650MG DOSE (2X325MG) PO PRN (15:01)
[2019-03-14 15:05] VITALS: BP 162/75
== END 2019-03-14 15:20 | disposition home or self-care (01) ==
LOC: M SDC 09:36
PROVIDERS: ATTEND Urology
DX: N13.30 Unspecified hydronephrosis (principal); R31.0 Gross hematuria; I71.4 Abdominal aortic aneurysm, without rupture; I25.2 Old myocardial infarction; I10 Essential (primary) hypertension; N40.0 Benign prostatic hyperplasia without lower urinary tract symptoms; K21.9 Gastro-esophageal reflux disease without esophagitis; Z87.891 Personal history of nicotine dependence; I73.9 Peripheral vascular disease, unspecified; Z79.899 Other long term (current) drug therapy; I25.10 Atherosclerotic heart disease of native coronary artery without angina pectoris; E78.5 Hyperlipidemia, unspecified

== ENCOUNTER 2019-03-15 22:50 | Inpatient (IN) | payer MEDICARE ==
[2019-03-15] MEDS: OMEPRAZOLE 20 MG CAP PO SCH (03:15)
[2019-03-15] MEDS: ATORVASTATIN 20 MG TAB PO SCH (03:15)
[2019-03-15] MEDS: GABAPENTIN 100 MG CAP PO SCH (03:15)
[2019-03-15] MEDS: FINASTERIDE 5 MG TAB PO SCH (03:15)
[~2019-03-15 22:50] MED LIST changes: +ECOT81TA5 PO; -LR 1,000 ML IV ONE; -ceFAZolin SOD 2 GM in IV 1 EA IV ONE
[2019-03-16] VITALS (9 sets, daily range): BP systolic 146–167; BP diastolic 69–77
[2019-03-16] MEDS ORDERED: ACETAMINOPHEN TAB 650MG DOSE (2X325MG) PO PRN (01:00)
[2019-03-16] MEDS ORDERED: MOM 30ML SUSPENSION UDC PO PRN (01:00)
[2019-03-16] MEDS ORDERED: TOPR100T PO (01:18)
[2019-03-16] MEDS ORDERED: CVS400CA PO (01:18)
[2019-03-16] MEDS ORDERED: NS 1,000 ML IV SCH (01:30)
[2019-03-16 01:53] LABS: HEMATOCRIT 28.8 % (42.0-52.0); HEMOGLOBIN 9.1 g/dl (13.5-17.5); MEAN CORPUSCULAR HEMOGLOBIN 28.6 pg (27.0-33.0); MEAN CORPUSCULAR HGB CONC 31.6 g/dl (32.0-36.5); MEAN CORPUSCULAR VOLUME 90.6 fl (80.0-96.0); PLATELET COUNT, AUTOMATED 244 10^3/uL (150-450); RED BLOOD COUNT 3.18 10^6/uL (4.30-6.10); WHITE BLOOD COUNT 12.6 10^3/uL (4.0-10.0)
[2019-03-16 01:57] LABS: INR 1.21
[2019-03-16 02:08] LABS: ALBUMIN 2.4 GM/DL (3.2-5.2); BILIRUBIN,TOTAL 0.3 MG/DL (0.2-1.0); CALCIUM LEVEL 8.3 MG/DL (8.8-10.2); CREATININE FOR GFR 2.08 MG/DL (0.70-1.30); POTASSIUM SERUM 3.7 MEQ/L (3.5-5.1); TOTAL PROTEIN 6.1 GM/DL (6.4-8.2)
[2019-03-16 02:43] LABS: BASO % 0.2 % (0.0-1.0); EOS # 0.4 10^3/uL (0.0-0.5); EOS % 3.3 % (0.0-3.0); LYMPH # 1.2 10^3/uL (1.5-5.0); LYMPH % 9.8 % (24.0-44.0); MONO % 7.7 % (0.0-5.0); NEUTROPHILS # 9.9 10^3/uL (1.5-8.5); NEUTROPHILS % 78.4 % (36.0-66.0)
--- NOTE | 2019-03-16 03:08 | HPEPDOC ---
[facility] Medical History & Physical Date of Admission Mar 16, 2019 Date of Service: Mar 16, 2019 Other Provider PCP: Debra Nichols Urology: Dr.Kevin Cavazos Attending Physician: GIO KAT MD History and Physical CHIEF COMPLAINT: Gross hematuria HISTORY OF PRESENT ILLNESS: This is a 79-year-old male with a pertinent past medical history of chronic suprapubic catheter was transferred from [facility] for gross hematuria to be evaluated by urology and possible interventional radiology. From reviewing the records from [facility] patient was admitted 4 days prior at [facility] for weakness found to be severely anemic requiring 2 units of blood transfusion. He was then discharged the next day to follow-up with his urologist, Dr. Aguilar for scheduled cystoscopy on March 14. Patient states that he was feeling fine after the cystoscopy. He noticed around 5:30 on the 12th evening he started experience dizziness, lightheadedness and weakness. He denied any visual changes, chest pain, shortness of breath, nausea, vomiting, diarrhea, fevers or chills. He noticed that he had gross hematuria in his Giraldo bag redder than normal and he went to the ER to get further evaluation. He noticed that his dizziness and lightheadedness was worse with standing but improved with sitting and lying down. In the [facility] ER, leukocytosis of 14.1, hemoglobin was 9.5 hematocrit 29.2, creatinine of 2.2. He did not get any blood transfusion but did get 1 L normal saline bolus prior to being transferred to the [facility] for further care. At the time of my exam, he states that his symptoms are completely resolved after he got 1 L normal saline and he passed a couple of clots. He is unsure which helped passing the clots or the fluids. He has no complaints at this current time but still not ices gross amount of blood in his Giraldo bag that is not improving. REVIEW OF SYSTEMS: 10 systems reviewed and negative other than HPI PAST MEDICAL HISTORY: 1. Coronary artery disease. 2. Hypertension. 3. Hyperlipidemia. 4. Abdominal aortic aneurysm 5. BPH 6. Urethral strictures 7. Suprapubic catheter 8. GERD 9. Gross hematuria 10. Cerebral infarct in 2011 11. Peripheral vascular disease 12. Myocardial infarction PAST SURGICAL HISTORY: 1. 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 Suprapubic catheter placement 3. Aortic aneurysm repair 4. Coronary stent placement x 2 SOCIAL HISTORY: Lives with: in [place],Employment: Retired, Tobacco use: Former smoker. ETOH: Social drinker,Illicit drug use: Never, CODE STATUS: Full code FAMILY HISTORY: Reviewed and positive for heart disease in father ALLERGIES: Please see below HOME MEDICATIONS: Please see below. PHYSICAL EXAMINATION: VITAL SIGNS: See Below GENERAL: Pleasant 79-year-old male laying bed awake alert oriented speaking in complete sentences no acute distress HEENT: Atraumatic normocephalic EOMI, PERRLA, Moist mucous membranes no JVD CARDIOVASCULAR: S1 S2 regular no additional heart sounds appreciated. RESPIRATORY: Clear to auscultate bilaterally no audible wheezing rhonchus or Rales ABDOMINAL: Bowel sounds present abdomen soft and nontender suprapubic catheter in place Insertion site looks clean no discharge no tenderness or erythema noted. Gross blood can be appreciated and the catheter and bag. 1 blood clot can be appreciated in the back EXTREMITIES: No clubbing cyanosis or edema. Multiple toe amputations appreciated bilaterally: Right foot 1st, 2nd and 5th toe, Left Foot, 1ST, 5TH toe, 2+ pulses bilaterally in lower and upper extremity. NEUROLOGICAL: Spontaneously moves all 4 extremities cranial 2 through 12 grossly intact no gross focal deficits appreciated PSYCHOLOGICAL: Appropriate LABORATORY DATA: See below. MICROBIOLOGY: Please see below. ASSESSMENT & PLAN: This is a 79-year-old male with a chronic suprapubic catheter for the last 10 years who is admitted for management of acute symptomatic anemia 2/2 gross hematuria. PROBLEMS: 1. Gross hematuria with acute symptomatic anemia. Hemoglobin from [facility] was 9.5 repeat hemoglobin today was 9.1. Will obtain a type and screen and consent is in the chart. We will do serial H&Hs and transfuse as needed if less than 8 for hes acutely bleeding. And he will have continuous bladder irrigation. He is a private patient of Dr. Cavazos and we will reach him in the morning for further recommendation for is currently stable. We will also reach out to Dr. Frey, interventional radiologist if he is evaluated for possible embolization/catheter-based treatment. Baseline hemoglobin >9 2. Acute kidney injury secondary to problem 1. Creatinine at [facility] was 2.2. Repeat today was 2.08. He did get 1 L normal saline bolus in [facility]. We will continue with gentle hydration normal saline at 80cc/hr for 1L and will reevaluate. Baseline creatinine around 1.13. 3. Reactive leukocytosis. At home he was on ciprofloxacin for the last 5 days for possible underlying UTI. He states his urine cultures are negative for growth. It is not believed that he is currently infectious. Will not continue antibiotics for he clinically looks stable and not septic. Well continue to monitor. 4. Hypertension. Because of his a AUSTIN we will hold his home hydrochlorothiazide and lisinopril. We have continued his metoprolol and will monitor his blood pressure. If he needs blood pressure control pending improvement of a AUSTIN, we will restart his home medications. 5. Coronary artery disease s/p 2 stents. We will continue with his home Toprol. I have held his aspirin 81 mg at bedtime due to problem 1. Once he is clinically stable can restart this. 6. BPH. I have continued his finasteride 5 mg by mouth daily at bedtime. The patient does have a suprapubic catheter in place so I do not know if the patient needs to continue this upon discharge. 7. Chronic suprapubic catheter. Last changed on March 14. 8. Hyperlipidemia. Continue home atorvastatin Point of Contact: Geno Steele, Daughter, DVT PROPHYLAXIS: Teds and sequentials DISPOSITION: At least 2 midnights Vital Signs Vital Signs Date Time Temp Pulse Resp B/P (MAP) Pulse Ox O2 Delivery O2 Flow Rate FiO2 03/16/19 00:50 98.4 72 20 149/71 (97) 98 Room Air Laboratory Data Labs 24H Laboratory Tests 2 03/16/19 01:35: Nucleated Red Blood Cells % (auto) 0.0, Prothrombin Time 15.0H, Prothromb Time International Ratio 1.21, Anion Gap 9, Glomerular Filtration Rate 33.0L, Calcium Level 8.3L, Total Bilirubin 0.3, Aspartate Amino Transf (AST/SGOT) 19, Alanine Aminotransferase (ALT/SGPT) 10L, Alkaline Phosphatase 96, Total Protein 6.1L, Albumin 2.4L, Albumin/Globulin Ratio 0.65L CBC/BMP Laboratory Tests 03/16/19 01:35 Microbiology Microbiology 03/16/19 Blood Culture, Received Pending Home Medications Scheduled Aspirin (Ecotrin) 81 Mg Tablet.dr, 81 MG PO QHS Atorvastatin Calcium (Atorvastatin Calcium) 40 Mg Tab, 40 MG PO QHS Cholecalciferol (Vitamin D3) (Vitamin D3) 400 Unit Capsule, 400 UNIT PO QHS Ciprofloxacin HCl (Cipro) 250 Mg Tablet, 250 MG PO BID Finasteride (Finasteride) 5 Mg Tab, 5 MG PO QHS Gabapentin (Gabapentin) 100 Mg Cap, 100 MG PO TID Hydrochlorothiazide (Hydrochlorothiazide) 12.5 Mg Cap, 12.5 MG PO DAILY Lisinopril (Lisinopril) 20 Mg Tab, 20 MG PO DAILY Metoprolol Succinate (Toprol Xl) 100 Mg Tab.er.24h, 100 MG PO DAILY Multivitamin (Multivitamins) 1 Cap Cap, 1 CAP PO QHS Omeprazole (Omeprazole) 20 Mg Cap, 20 MG PO BID Scheduled PRN Acetaminophen (Acetaminophen) 325 Mg Tab, 650 MG PO Q8H PRN for PAIN / FEVER Nitroglycerin (Nitroglycerin) 0.4 Mg Sub, 0.4 MG SL NITRO PRN for CHEST PAIN Nystatin/Triamcin (Nystatin-Triamcinolone Ointm) 1 Oin Oin, 1 APLCT TOP QID PRN for RASH AROUND CATHETER apply to affected area(s) Allergies Coded Allergies: No Known Allergies (Unverified , 01/28/19) GME ATTESTATION GME ATTESTATION My faculty preceptor for this patient encounter was physically present during the encounter and was fully available. All aspects of the patient interview, examination, medical decision making process, and medical care plan development were reviewed and approved by the faculty preceptor. The faculty preceptor is aware and concurs with the plan as stated in the body of this note and will attest to such by his/her cosignature. ATTENDING NOTE I examined Mr. Downs at 1:45 AM, reviewed Dr. Turcios's note and agree the findings as documented FLACO SAM DO Mar 16, 2019 03:08 GIO KAT MD Mar 16, 2019 04:33
[2019-03-16 03:30] LABS: MAGNESIUM LEVEL 1.4 MG/DL (1.8-2.4)
[2019-03-16 03:51] LABS: HEMATOCRIT 29.7 % (42.0-52.0); HEMOGLOBIN 9.1 g/dl (13.5-17.5)
[2019-03-16] MEDS ORDERED: ISOVUE-300 61% 50ML VIAL (Q9967) As Ordered ONE (08:36)
[2019-03-16] MEDS ORDERED: LIDOCAINE 1% MDV 20ML VIAL As Ordered ONE (08:37)
[2019-03-16] MEDS ORDERED: ceFAZolin 1GM INJ (J0690 PER 500MG) As Ordered ONE (08:43)
[2019-03-16] MEDS: GABAPENTIN 100 MG CAP PO SCH ×3 (09:00→20:47)
[2019-03-16] MEDS ORDERED: fentaNYL 100 MCG/2 ML INJECTION (J3010) As Ordered ONE (09:29)
[2019-03-16] MEDS ORDERED: diphenhydrAMINE INJ 50MG/ML VIAL (J1200) As Ordered ONE (09:29)
[2019-03-16] MEDS ORDERED: MIDAZOLAM INJ 2 MG/2 ML VIAL (J2250) As Ordered ONE (09:30)
[2019-03-16 11:35] LABS: HEMATOCRIT 29.2 % (42.0-52.0); HEMOGLOBIN 9.2 g/dl (13.5-17.5)
[2019-03-16] MEDS ORDERED: ACETAMINOPHEN 500 MG TAB PO PRN (11:45)
[2019-03-16] MEDS ORDERED: HYDROMORPHONE HCL 0.5 MG/ 0.5 ML SYRINGE (J1170 PER 1) IV PRN (11:45)
[2019-03-16] MEDS ORDERED: ONDANSETRON 4MG/2ML VIAL (J2405) IV PRN (11:45)
[2019-03-16] MEDS: NS 1,000 ML IV SCH (12:02)
--- NOTE | 2019-03-16 12:34 | REP ---
IR Percutaneous nephro ureteral stent catheter placement using fluoroscopy and ultrasound guidance. IR nephrostogram and ureterogram. IR moderate sedation. Ultrasound of the right kidney. Clinical information: Ureteral obstruction. Physician: Dr Frey. Procedure: The patient was advised of the benefits, risks and alternatives of the procedure and informed consent was obtained. The time-out was performed with verification of the patient's name, MRN, site of procedure and type of procedure to be performed. The patient was positioned in the prone position on the angiographic table. The site was prepped and draped in the usual sterile fashion. Moderate sedation was performed by the physician including the presence of an independent trained observer who assisted in monitoring the patient's level of consciousness and physiologic status. Following the administration of Fentanyl and Versed, the physician spent 45 minutes of face to face time with the patient. A vocational counselor radiograph reveals aortic graft. The anticipated puncture site on the flank was anesthetized with lidocaine. Using ultrasound guidance, a lower pole calyx was accessed with a 21 gauge Chiba needle. A nephrostogram and ureterogram was performed demonstrating hydronephrosis, hydroureter and distal ureteral obstruction. An 018 wire was then advanced into the collecting system. The needle was then exchanged for a non vascular introducer set. A glide wire in conjunction with a glide cath was used to catheterize the distal ureter down to the bladder using fluoro guidance. Contrast injection confirms location in the collecting system and bladder. The glidewire was exchanged for an Amplatz wire which was advanced under fluoroscopy guidance through the catheter into the bladder. The sheath and catheter were removed. An 8 Somali nephro ureteral stent catheter was then advanced over the wire into the bladder. The proximal and distal pigtail was formed and locked in position. A final nephrostogram ureterogram was performed confirming position of the pigtails in the renal pelvis and in the bladder. No extravasation. The catheter was sutured in position with 2-0 Prolene and a sterile dressing was applied. The patient tolerated the procedure well and was returned to the PRU in stable condition. EBL: < 5 ml. Complications: None. Conclusion: 1. Nephrostogram and ureterogram demonstrate hydronephrosis, hydroureter and distal ureteral obstruction. 2. Successful right sided nephro ureteral stent catheter placement. Patient to follow up with urology for stent conversion and/or for conversion/routine exchange in IR in 12 weeks. Thank you for this referral. Electronically Signed by Janice Frey MD 03/16/2019 12:31 P
[2019-03-16] MEDS: OMEPRAZOLE 20 MG CAP PO SCH ×2 (13:20→20:47)
[2019-03-16] MEDS: METOPROLOL SUCC (TopROL XL) 100MG *XL* TAB PO SCH (13:20)
--- NOTE | 2019-03-16 15:07 | SMCUROLCON ---
Urology Consultation General Date of Consultation 03/16/19 Reason For Consultation This patient is seen for Hematuria, Acute Anemia. History of Present Illness This is a 79 y/o M w/ urethral stricture disease managed with a chronic suprapubic catheter, intermittent gross hematuria, and right hydronephrosis of unknown cause, who was admitted to the hospital yesterday evening as a transfer from [facility] for hematuria and clot retention. Of note the patient underwent cystoscopy and clot evacuation in the OR 2 days ago and notes that for a day his urine was clear. At some point yesterday afternoon he started having hematuria again and ultimately his suprapubic catheter stopped draining and he started fee ling ill. On presentation to [facility], his Hb was in the low to mid 9s an his Cr was 2. By the time I evaluated him this afternoon, he had been taken to IR for right percutaneous nephroureteral stent placement for his right hydroureteronephrosis and AUSTIN. He notes that he feels well now that the cathet er is draining. He denies fevers or chills. Past Medical History Medical History see HPI Surgical Hstory suprapubic catheter placement, cataract surgery, cardiac stents Medications Current Medications Current Medications Medications (Trade) Dose Ordered Sig/Cady Route PRN Reason Start Time Stop Time Status Last Admin Dose Admin Acetaminophen (Tylenol Tab) 500 mg Q6H PRN PO MILD PAIN 03/16/19 11:45 Acetaminophen (Tylenol Tab) 650 mg Q4H PRN PO PAIN OR FEVER 03/16/19 01:00 Atorvastatin Calcium (Lipitor) 40 mg QHS PO 03/15/19 21:00 Finasteride (Proscar) 5 mg QHS PO 03/15/19 21:00 Gabapentin (Neurontin) 100 mg TID PO 03/15/19 21:00 Home Med (Med Rec Complete!) ASDIRECTED XX 03/16/19 01:30 03/16/19 01:27 DC Hydromorphone HCl (Dilaudid) 0.5 mg Q2H PRN IV SEVERE PAIN 03/16/19 11:45 Magnesium Hydroxide (Milk Of Magnesia) 30 ml DAILY PRN PO CONSTIPATION 03/16/19 01:00 Metoprolol Succinate (TopROL XL) 100 mg DAILY PO 03/16/19 09:00 03/16/19 13:20 Miscellaneous (Unresolved Clarification Entry) SEE LABEL COMMENTS DAILY XX 03/16/19 09:00 Omeprazole (PriLOSEC) 20 mg BID PO 03/15/19 21:00 03/16/19 13:20 Ondansetron HCl (ZOFRAN INJection) 4 mg Q8H PRN IV NAUSEA 03/16/19 11:45 Sodium Chloride 1,000 ml @ 75 mls/hr [id number] IV 03/16/19 11:30 03/16/19 12:02 Sodium Chloride 1,000 ml @ 80 mls/hr [id number] IV 03/16/19 01:30 03/16/19 11:27 DC 03/16/19 02:43 Allergies Allergies: Coded Allergies: No Known Allergies (Unverified , 01/28/19) Review of Systems Constitutional: Denies: Fever, Chills, Sweats, Weakness, Malaise Skin: Denies: Rash, Lesions, Breakdown, Nail Changes Pulmonary: Denies: Dyspnea, Cough Cardiovascular: Denies Chest Pain, Denies Palpitations Gastrointestinal: Denies: Nausea, Vomiting, Abdominal Pain Genitourinary: Reports: Hematuria Musculoskeletal: Reports: Back Pain (mild right flank pain after nephroureteral stent placed) Psych: Reports: Mood Normal Physical Examination General Exam: Alert, Cooperative, No Acute Distress Chest Exam: Normal air movement Heart Exam: Rate Normal, Regular Rhythm Abdomen Exam: Other (22Fr suprapubic catheter in place draining dark red urine; right perc nephroureteral stent draining dark pink urine) Skin Exam: Nl turgor and temperature Neuro Exam: Normal Speech Psych Exam: Mental status NL, Mood NL Vital Signs/I&O Vital Signs Date Time Temp Pulse Resp B/P (MAP) Pulse Ox O2 Delivery O2 Flow Rate FiO2 03/16/19 13:20 90 165/77 03/16/19 11:00 18 100 Nasal Cannula 2 03/16/19 09:08 99.8 I&O- Last 24 Hours up to 6 AM 03/16/19 06:00 Intake Total 420 ml Output Total 500 ml Balance -80 ml Laboratory Data 24H Labs Laboratory Tests 2 03/16/19 01:35: Immature Granulocyte % (Auto) 0.6, Neutrophils (%) (Auto) 78.4H, Lymphocytes (%) (Auto) 9.8L, Monocytes (%) (Auto) 7.7H, Eosinophils (%) (Auto) 3.3H, Basophils (%) (Auto) 0.2, Immature Granulocyte # (Auto) 0.1H, Neutrophils # (Auto) 9.9H, Lymphocytes # (Auto) 1.2L, Monocytes # (Auto) 1.0H, Eosinophils # (Auto) 0.4, Basophils # (Auto) 0.0, Nucleated Red Blood Cells % (auto) 0.0, Platelet Estimate , Prothrombin Time 15.0H, Prothromb Time International Ratio 1.21, Anion Gap 9, Glomerular Filtration Rate 33.0L, Calcium Level 8.3L, Magnesium Level 1.4L, Total Bilirubin 0.3, Aspartate Amino Transf (AST/SGOT) 19, Alanine Aminotransferase (ALT/SGPT) 10L, Alkaline Phosphatase 96, Total Protein 6.1L, Albumin 2.4L, Albumin/Globulin Ratio 0.65L CBC/BMP Laboratory Tests 03/16/19 01:35 03/16/19 03:46 03/16/19 11:15 Microbiology Microbiology 03/16/19 Blood Culture, Received Pending Assessment This is a 79 y/o M w/ urethral stricture disease managed with a chronic suprapub ic catheter, intermittent gross hematuria, and right hydronephrosis of unknown cause, who was admitted to the hospital yesterday evening as a transfer from [facility] for hematuria and clot retention and [place]. He is now s/p a right perc nephroureteral stent placement. This should help w/ AUSTIN and will also assist when he is taken back to the OR next week for right ureteroscopy to investigate the cause of right hydronephrosis and hematuria. I also irrigated his suprapubic catheter and removed a large amount of clots. Once done his catheter was draining pink. Plan - appreciate IR placement of right nephroureteral stent - keep nephroureteral stent and suprapubic catheter to gravity drainage - will follow - patient will ultimately need to go back to the OR for cysto, right ureteroscopy with possible biopsies, and right ureteral stent placement (this is tentatively scheduled for next week - patient does not need to stay in the hospital until then) SHUN BOYER MD Mar 16, 2019 15:07
[2019-03-16 16:09] LABS: HEMATOCRIT 30.2 % (42.0-52.0); HEMOGLOBIN 9.4 g/dl (13.5-17.5)
[2019-03-16] MEDS: FINASTERIDE 5 MG TAB PO SCH (20:47)
[2019-03-16] MEDS: ATORVASTATIN 20 MG TAB PO SCH (20:47)
[2019-03-17] MEDS: NS 1,000 ML IV SCH (00:50)
[2019-03-17 02:33] VITALS: BP 156/76
[2019-03-17 07:00] VITALS: BP 137/65
[2019-03-17 07:08] LABS: HEMATOCRIT 28.6 % (42.0-52.0); HEMOGLOBIN 8.8 g/dl (13.5-17.5); MEAN CORPUSCULAR HGB CONC 30.8 g/dl (32.0-36.5); MEAN CORPUSCULAR VOLUME 91.1 fl (80.0-96.0); PLATELET COUNT, AUTOMATED 208 10^3/uL (150-450); RED BLOOD COUNT 3.14 10^6/uL (4.30-6.10); WHITE BLOOD COUNT 10.5 10^3/uL (4.0-10.0)
[2019-03-17 07:37] LABS: CALCIUM LEVEL 8.2 MG/DL (8.8-10.2); CREATININE FOR GFR 1.49 MG/DL (0.70-1.30); GLOMERULAR FILTRATION RATE 48.6 (>42); MAGNESIUM LEVEL 1.4 MG/DL (1.8-2.4); POTASSIUM SERUM 3.6 MEQ/L (3.5-5.1)
[2019-03-17 08:47] VITALS: BP 137/65
[2019-03-17] MEDS: METOPROLOL SUCC (TopROL XL) 100MG *XL* TAB PO SCH (08:47)
[2019-03-17] MEDS: OMEPRAZOLE 20 MG CAP PO SCH (08:47)
[2019-03-17] MEDS: GABAPENTIN 100 MG CAP PO SCH (08:47)
--- NOTE | 2019-03-17 11:58 | IPNPDOC ---
Subjective Review oF Systems Chief Complaint The patient is a 79-year-old male admitted with a reason for visit of Hematuria, Acute Anemia. General: Denies: ROS Unobtainable, Chills, Night Sweats, Fatigue, Malaise, Normal Appetite, Other Symptoms Constitutional: Denies: Fever, Chills, Sweats, Weakness, Malaise, Other Eyes: Denies: Pain, Vision change, Conjunctivae inflammation, Eyelid inflammation, Redness, Other ENT: Denies: Head Aches, Ear Pain, Dysphagia, Sinus Congestion, Post Nasal Drip, Sore Throat, Epistaxis, Other Symptoms Skin: Denies: Rash, Lesions, Jaundice, Bruising, Itching, Dry, Breakdown, Nail Changes, Other Pulmonary: Denies: Dyspnea, Cough, Pleuritic Chest Pain, Other Symptoms Cardiovascular: Denies Chest Pain, Denies Palpitations, Denies Orthopnea, Denies Paroxysmal Noc. Dyspnea, Denies Edema, Denies Lt Headedness, Denies Other Symptoms Gastrointestinal: Denies: Nausea, Vomiting, Abdominal Pain, Diarrhea, Constipation, Melena, Hematochezia, Other Symptoms Genitourinary: Reports: Hematuria Hematologic: Denies: Bruising, Bleeding Excessively, Petecchia, Purpura, Enlarged Lymph Nodes, Other Hematologic Endocrine: Denies: Polydipsia, Polyphagia, Polyuria, Heat Intolerance, Cold I ntolerance, Other Endocrine Sx Musculoskeletal: Denies: Neck Pain, Back Pain, Shoulder Pain, Arm Pain, Hand Pain, Leg Pain, Foot Pain, Joint Pain, Muscle Pain, Spasms, Other Symptoms Neurological: Denies: Weakness, Numbness, Incoordination, Change in Speech, Confusion, Seizures, Other Symptoms Psych: Denies: Mood Normal, Anxiety, Depression, Memory Issues, Thoughts of Self Harm, Anger, Thoughts of harming Other, Other Psych Objective Physical Examination General Exam: Cooperative, No Acute Distress Eye Exam: PERRLA; No: Conjunctiva & lids normal, EOMI, Sclera icteric, Ptosis, Other Eye Symptoms ENT EXAM: Atraumatic Neck Exam: Supple Heart Exam: Positive: Rate Normal ABDOMEN EXAM: Normal bowel sounds Vital Signs/I&O Vital Signs Date Time Temp Pulse Resp B/P (MAP) Pulse Ox O2 Delivery O2 Flow Rate FiO2 03/17/19 08:47 72 137/65 03/17/19 07:00 98.9 18 100 Room Air 03/16/19 11:00 2 I&O- Last 24 Hours up to 6 AM 03/17/19 06:00 Intake Total 1395 ml Output Total 3475 ml Balance -2080 ml Laboratory Data Labs 24H Laboratory Tests 2 03/17/19 06:28: Nucleated Red Blood Cells % (auto) 0.0, Anion Gap 7L, Glomerular Filtration Rate 48.6, Calcium Level 8.2L, Magnesium Level 1.4L CBC/BMP Laboratory Tests 03/16/19 15:52 03/17/19 06:28 Microbiology Microbiology 03/16/19 Blood Culture - Preliminary, Resulted No growth after 24 hours . All specim... Assessment/Plan Date Seen The patient was seen on 03/17/19. Problems (1) Gross hematuria Status: Acute Plan/VTE VTE Prophylaxis Ordered?: No Plan/Urinary Catheter Urinary Catheter: Other Catheter: (Patient to manage suprapubic catheter as he has in the past) Plan Patient is aware of how to care for his suprapubic tube and nephrostomy tube He is scheduled for ureteroscopy BÁRBARA THOMAS MD Mar 17, 2019 11:58
--- NOTE | 2019-03-17 12:39 | DS.PDOC ---
Discharge Summary General Date of Admission Mar 16, 2019 at 00:25 Date of Discharge 03/17/19 Discharge Summary PROCEDURES PERFORMED DURING STAY: Nephroureteral stent placement. ADMITTING DIAGNOSES: 1. , Hematuria, right hydronephrosis. DISCHARGE DIAGNOSES: 1. , Hematuria, right hydronephrosis. COMPLICATIONS/CHIEF COMPLAINT: Hematuria, Acute Anemia. HISTORY OF PRESENT ILLNESS: This is a 79-year-old male with a pertinent past medical history of chronic suprapubic catheter [facility]uria to be evaluated by urology and possible interventional radiology. From reviewing [facility] patient was [facility] at [facility] for weakness found to be severely anemic requiring 2 units of blood transfusion. He was then discharged the next day to follow-up with his urologist, Dr. Aguilar for scheduled cystoscopy on March 14. Patient states that he was feeling fine after the cystoscopy. He noticed around 5:30 on the 12th evening he started experience dizziness, lightheadedness and weakness. He denied any visual changes, chest pain, shortness of breath, nausea, vomiting, diarrhea, fevers or chills. He noticed that he had gross hematuria in his Giraldo bag redder than normal and he went to the ER to get further evaluation. He noticed that his dizziness and lightheadedness was worse with standing but improved with sitting and lying down. In the [facility], leukocytosis of 14.1, hemoglobin was 9.5 hematocrit 29.2, creatinine of 2.2. He did not get any blood transfusion but did get 1 L normal saline bolus prior to being transferred to the [facility] for further care. At the time of my exam, he states that his symptoms are completely resolved after he got 1 L normal saline and he passed a couple of clots. He is unsure which helped passing the clots or the fluids. He has no complaints at this current time but still notices gross amount of blood in his Giraldo bag that is not improving.. HOSPITAL COURSE: [Patient was admitted to medical floor for further workup. I had a discussion with Dr. Cavazos regarding patient's hematuria as he is a very well familiar with the patient and as per Dr. Cavazos patient has a significant right hydronephrosis and since he has as suprapubic tube is very difficult to oriented and inserted a catheter in the right ureter. IR consult was called with Dr. Frey patient was taken to interventional radiology and had the nephroureteral ureteral stent placed in. Patient's kidney function is already improving after the stent placement. No more hematuria and follow from Dr. Cavazos was noted and patient will be discharged home and he will follow up with him in 12 weeks for repeat cystoscopy She'll be discharged home on all current medications. DISCHARGE MEDICATIONS: Please see below. ALLERGIES: Please see below. PHYSICAL EXAMINATION ON DISCHARGE: VITAL SIGNS: Please see below. GENERAL: Within normal limits HEENT: PERRLA. Extraocular muscles intact NECK: Supple CARDIOVASCULAR EXAMINATION: S1, S2, regular RESPIRATORY EXAMINATION: Clear to A&P ABDOMINAL EXAMINATION: , Soft, nontender, bowel sounds present EXTREMITIES: No clubbing, cyanosis, edema SKIN: Within normal limits NEUROLOGICAL EXAMINATION: . No focal motor sensory deficit PSYCHIATRIC EXAMINATION: Normal LABORATORY DATA: Please see below. IMAGING: None PROGNOSIS: Good ACTIVITY: As tolerated. DIET: As tolerated DISCHARGE PLAN: Follow with Dr. Cavazos in 12 weeks DISPOSITION: 01 Home, Self-Care. DISCHARGE INSTRUCTIONS: 1. As per discharge instructions. ITEMS TO FOLLOWUP ON ON OUTPATIENT: 1. Follow-up with Dr. Cavazos in 12 weeks. DISCHARGE CONDITION: Stable. TIME SPENT ON DISCHARGE: 32 minutes. Vital Signs/I&Os Vital Signs Date Time Temp Pulse Resp B/P (MAP) Pulse Ox O2 Delivery O2 Flow Rate FiO2 03/17/19 08:47 72 137/65 03/17/19 07:00 98.9 18 100 Room Air 03/16/19 11:00 2 I&O- Last 24 Hours up to 6 AM 03/17/19 06:00 Intake Total 1395 ml Output Total 3475 ml Balance -2080 ml Laboratory Data Labs 24H Laboratory Tests 2 03/17/19 06:28: Nucleated Red Blood Cells % (auto) 0.0, Anion Gap 7L, Glomerular Filtration Rate 48.6, Calcium Level 8.2L, Magnesium Level 1.4L CBC/BMP Laboratory Tests 03/16/19 15:52 03/17/19 06:28 Microbiology Microbiology 03/16/19 Blood Culture - Preliminary, Resulted No growth after 24 hours . All specim... Discharge Medications Scheduled Aspirin (Ecotrin) 81 Mg Tablet.dr, 81 MG PO QHS, (Reported) Atorvastatin Calcium (Atorvastatin Calcium) 40 Mg Tab, 40 MG PO QHS, (Reported) Cholecalciferol (Vitamin D3) (Vitamin D3) 400 Unit Capsule, 400 UNIT PO QHS, (Reported) Ciprofloxacin HCl (Cipro) 250 Mg Tablet, 250 MG PO BID, (Reported) Finasteride (Finasteride) 5 Mg Tab, 5 MG PO QHS, (Reported) Gabapentin (Gabapentin) 100 Mg Cap, 100 MG PO TID, (Reported) Hydrochlorothiazide (Hydrochlorothiazide) 12.5 Mg Cap, 12.5 MG PO DAILY, (Reported) Lisinopril (Lisinopril) 20 Mg Tab, 20 MG PO DAILY, (Reported) Metoprolol Succinate (Toprol Xl) 100 Mg Tab.er.24h, 100 MG PO DAILY, (Reported) Multivitamin (Multivitamins) 1 Cap Cap, 1 CAP PO QHS, (Reported) Omeprazole (Omeprazole) 20 Mg Cap, 20 MG PO BID, (Reported) Scheduled PRN Acetaminophen (Acetaminophen) 325 Mg Tab, 650 MG PO Q8H PRN for PAIN / FEVER, (Reported) Nitroglycerin (Nitroglycerin) 0.4 Mg Sub, 0.4 MG SL NITRO PRN for CHEST PAIN, (Reported) Nystatin/Triamcin (Nystatin-Triamcinolone Ointm) 1 Oin Oin, 1 APLCT TOP QID PRN for RASH AROUND CATHETER, (Reported) apply to affected area(s) Allergies Coded Allergies: No Known Allergies (Unverified , 01/28/19) WANG BARRERA MD Mar 17, 2019 12:38
== END 2019-03-17 12:05 | disposition home or self-care (01) | DRG 694 ==
LOC: ENRESERV 22:52 → M MS5PR 03-16 00:25
PROVIDERS: ADMIT Internal Medicine; ATTEND Internal Medicine
PROC: 0TCB8ZZ Extirpation of Matter from Bladder, Via Natural or Artificial Opening Endoscopic (ICD-10-PCS; 2019-03-16)
PROC: 0T9B70Z Drainage of Bladder with Drainage Device, Via Natural or Artificial Opening (ICD-10-PCS; 2019-03-16)
PROC: 0T763DZ Dilation of Right Ureter with Intraluminal Device, Percutaneous Approach (ICD-10-PCS; principal; 2019-03-16 08:45)
DX: N13.1 Hydronephrosis with ureteral stricture, not elsewhere classified (principal); R31.0 Gross hematuria; N17.9 Acute kidney failure, unspecified; I25.10 Atherosclerotic heart disease of native coronary artery without angina pectoris; I10 Essential (primary) hypertension; E78.5 Hyperlipidemia, unspecified; I71.4 Abdominal aortic aneurysm, without rupture; N40.0 Benign prostatic hyperplasia without lower urinary tract symptoms; K21.9 Gastro-esophageal reflux disease without esophagitis; I73.9 Peripheral vascular disease, unspecified; D72.829 Elevated white blood cell count, unspecified; I25.2 Old myocardial infarction; Z86.73 Personal history of transient ischemic attack (TIA), and cerebral infarction without residual deficits; Z95.1 Presence of aortocoronary bypass graft; Z96.0 Presence of urogenital implants; Z89.429 Acquired absence of other toe(s), unspecified side; Z79.82 Long term (current) use of aspirin; Z79.899 Other long term (current) drug therapy; Z98.49 Cataract extraction status, unspecified eye

== ENCOUNTER 2019-03-19 13:55 | Emergency (ER) | payer MEDICARE ==
[~2019-03-19] VITALS: Ht 175.3 cm; Wt 73.0 kg
[~2019-03-19 13:55] MED LIST changes: +CVS400CA PO; +TOPR100T PO
[2019-03-19 14:47] LABS: BASO % 0.2 % (0.0-1.0); EOS # 0.2 10^3/uL (0.0-0.5); EOS % 2.4 % (0.0-3.0); HEMATOCRIT 29.1 % (42.0-52.0); HEMOGLOBIN 9.2 g/dl (13.5-17.5); LYMPH # 0.8 10^3/uL (1.5-5.0); LYMPH % 9.4 % (24.0-44.0); MEAN CORPUSCULAR HEMOGLOBIN 28.4 pg (27.0-33.0); MEAN CORPUSCULAR HGB CONC 31.6 g/dl (32.0-36.5); MEAN CORPUSCULAR VOLUME 89.8 fl (80.0-96.0); MONO # 0.7 10^3/uL (0.0-0.8); MONO % 7.5 % (0.0-5.0); NEUTROPHILS % 79.7 % (36.0-66.0); PLATELET COUNT, AUTOMATED 237 10^3/uL (150-450); RED BLOOD COUNT 3.24 10^6/uL (4.30-6.10); WHITE BLOOD COUNT 8.8 10^3/uL (4.0-10.0)
[2019-03-19 14:58] LABS: INR 1.22; PROTHROMBIN TIME 15.1 SECONDS (11.8-14.0)
[2019-03-19 14:59] LABS: ALBUMIN 2.5 GM/DL (3.2-5.2); BILIRUBIN,DIRECT 0.1 MG/DL (0.0-0.2); BILIRUBIN,TOTAL 0.4 MG/DL (0.2-1.0); TOTAL PROTEIN 6.7 GM/DL (6.4-8.2)
[2019-03-19 15:05] LABS: BLOOD UREA NITROGEN 18 MG/DL (7-18); CALCIUM LEVEL 8.1 MG/DL (8.8-10.2); CARBON DIOXIDE LEVEL 25 MEQ/L (21-32); CHLORIDE LEVEL 106 MEQ/L (98-107); CK-MB VALUE MASS < 1.0 NG/ML (<3.6); CPK CREATINE PHOSPHOKINASE 32 U/L (39-308); CREATININE FOR GFR 1.48 MG/DL (0.70-1.30); FREE T4 1.19 NG/DL (0.76-1.46); GLOMERULAR FILTRATION RATE 48.9 (>42); GLUCOSE, FASTING 123 MG/DL (70-100); MAGNESIUM LEVEL 1.3 MG/DL (1.8-2.4); MB/CK RELATIVE INDEX 3.12 (< OR =4); POTASSIUM SERUM 3.4 MEQ/L (3.5-5.1); SODIUM LEVEL 139 MEQ/L (136-145); TROPONIN I < 0.02 NG/ML (< 0.10)
--- NOTE | 2019-03-19 15:08 | REP ---
Two-view chest: 03/19/2019. Indication: Dizziness. Comparison: None. Findings: The lungs are clear. There is no pleural effusion or pneumothorax. The cardiomediastinal silhouette is unremarkable. The lungs are mildly hyperinflated. Impression: No acute cardiopulmonary process. Electronically Signed by Arnoldo Cleaning DO 03/19/2019 02:59 P
[2019-03-19] MEDS ORDERED: MAGNESIUM OXIDE 400 MG TAB (MAG-OX) PO ONE (15:15)
[2019-03-19] MEDS ORDERED: POTASSIUM CHLORIDE 10 MEQ SR TABLET PO ONE (15:15)
[2019-03-19] MEDS ORDERED: NS 500 ML IV ONE ×2 (16:00→16:15)
[2019-03-19 17:45] VITALS: BP 169/77
--- NOTE | 2019-03-20 22:01 | ECGEPIP ---
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
== END 2019-03-19 18:08 | disposition home or self-care (01) ==
LOC: M ED 13:55
DX: R55 Syncope and collapse (principal); E87.6 Hypokalemia; E83.42 Hypomagnesemia; R31.9 Hematuria, unspecified; I10 Essential (primary) hypertension; E78.9 Disorder of lipoprotein metabolism, unspecified; K21.9 Gastro-esophageal reflux disease without esophagitis; N40.0 Benign prostatic hyperplasia without lower urinary tract symptoms; Z96.0 Presence of urogenital implants; Z79.899 Other long term (current) drug therapy; Z79.82 Long term (current) use of aspirin; Z87.891 Personal history of nicotine dependence

== ENCOUNTER 2019-03-22 08:14 | Day surgery (SDC) | payer MEDICARE ==
[~2019-03-22] VITALS: Ht 175.3 cm; Wt 72.1 kg
[~2019-03-22 08:14] MED LIST changes: +LR 1,000 ML IV ONE
[2019-03-22] MEDS ORDERED: ceFAZolin SOD 2 GM in IV 1 EA IV ONE (09:15)
[2019-03-22] MEDS ORDERED: PROPOFOL 200 MG/20 ML VIAL As Ordered ONE (11:08)
[2019-03-22] MEDS ORDERED: LIDOCAINE 2% INJ 100 MG/5 ML SDV (FOR ANES.) As Ordered ONE (11:08)
[2019-03-22] MEDS ORDERED: dexameTHASONE 4 MG/ML 1ML VIAL (J1100) As Ordered ONE (11:09)
[2019-03-22] MEDS ORDERED: ONDANSETRON 4MG/2ML VIAL (J2405) As Ordered ONE (11:09)
[2019-03-22] MEDS ORDERED: fentaNYL 100 MCG/2 ML INJECTION (J3010) As Ordered ONE (11:12)
[2019-03-22] MEDS ORDERED: MIDAZOLAM INJ 2 MG/2 ML VIAL (J2250) As Ordered ONE ×2 (11:12→15:02)
[2019-03-22] MEDS ORDERED: CONRAY-60 60% 50ML VIAL (Q9961) As Ordered ONE (11:33)
[2019-03-22] MEDS ORDERED: METOCLOPRAMIDE INJ 10MG/2ML VIAL (J2765) As Ordered ONE (15:14)
[2019-03-22] MEDS ORDERED: ePHEDrine SULFATE 25 MG/5 ML(5MG/ML) SYRINGE As Ordered ONE (15:16)
[2019-03-22] MEDS ORDERED: PHENYLephrine HCL 500 MCG/5 ML (100MCG/ML) SYRINGE (J2370) As Ordered ONE (16:33)
[2019-03-22] MEDS ORDERED: ACETAMINOPHEN TAB 650MG DOSE (2X325MG) PO PRN (17:30)
[2019-03-22] MEDS ORDERED: LR 1,000 ML IV SCH (17:30)
[2019-03-22] MEDS ORDERED: oxyCODONE 5MG TAB PO PRN (17:30)
[2019-03-22] MEDS ORDERED: ONDANSETRON 4MG/2ML VIAL (J2405) IV PRN (17:30)
[2019-03-22] MEDS ORDERED: fentaNYL 100 MCG/2 ML INJECTION (J3010) IV PRN (17:30)
[2019-03-22 18:05] VITALS: BP 169/71
--- NOTE | 2019-03-22 19:09 | REP ---
Retrograde pyelogram: Two views. History: Gross hematuria. Hydronephrosis. 1 minute of fluoroscopy time is reported. Findings: A sequence of two last image hold fluoroscopically obtained spot radiograph of the abdomen document right ureteral cannulation, contrast injection, and stent placement. Electronically Signed by Mina Acharya MD 03/22/2019 04:32 P
--- NOTE | 2019-03-26 14:02 | RO ---
DATE OF PROCEDURE: 03/22/2019 PREPROCEDURE DIAGNOSES: Gross hematuria, right hydronephrosis. POSTPROCEDURE DIAGNOSES: Gross hematuria, right hydronephrosis. PROCEDURE: Cystoscopy, biopsy and fulguration, right ureteroscopy, right retrograde pyelogram with intraoperative interpretation of images, right ureteral stent placement, removal of right nephroureteral stent, suprapubic catheter change. SURGEON: Dr. Eric Cavazos NEUROPSYCHOLOGIST: None. ANESTHESIA: General. OPERATIVE INDICATIONS: This is a 79-year-old male with urinary retention due to urethral strictures, managed with a chronic suprapubic catheter for several years, who has had gross hematuria recently, as well as has been found to have right hydronephrosis. He had a right nephroureteral stent placed 1 week ago. He was brought to the operating room today to investigate the cause of this gross hematuria, as well as cause of right hydronephrosis. DESCRIPTION OF PROCEDURE: The patient was brought to the operating room, where general anesthesia was induced. Prophylactic antibiotics were infused. He was then placed in the dorsal lithotomy position and prepped and draped in the usual sterile fashion. At this point, a cystoscope was inserted into suprapubic tract and advanced into the bladder. The bladder was thoroughly examined. Of note, there were several friable areas and there was a lot of edema. There did not appear to be any active bleeding coming from inside the bladder. Of note, there did appear to be bleeding coming from insight the suprapubic tract. At this point, the distal end of the previously placed right nephroureteral stent was seen. I then advanced an angled Glidewire up the right collecting system along side the nephroureteral stent. Once the Glidewire was all the way into the right renal pelvis, the nephroureteral stent was completely removed. I then advanced a dual lumen ureteral catheter over the Glidewire and then a motion wire was advanced up the right collecting system as well. The dual lumen ureteral catheter was then removed leaving both wires in place. Next, over the wire, a flexible ureteroscope was advanced up the right collecting system. I did have difficulty examining the inside of the kidney as the ureteroscope would not turned very well coming from this orientation through the suprapubic tract. The ureteroscope was then withdrawn back down the ureter after I examined that very well. Of note, I did not see any causes of obstruction along the entire length of the right ureter. I did not see any tumors inside the right ureter. At this point, the ureteroscope was completely removed and another wire was utilized to advanced a 7-Dominican x 22-32 cm JJ ureteral stent up the right collecting system. The wire was then removed, and there were adequate curls of the stent in the right renal pelvis and in the bladder. This was done after a retrograde pyelogram was performed and was notable for moderate right hydronephrosis. Next, I advanced a flexible cystoscope back in and no areas of bleeding were seen inside the bladder. Once again, there was bleeding in the suprapubic tract and I took biopsies in several areas inside the suprapubic tract to be sent for pathologic analysis. After that was done, I fulgurated and cauterized the areas. Once satisfied with hemostasis, the cystoscope was removed and a 24-Dominican catheter was inserted through the suprapubic tract and the balloon was filled with 10 mL of sterile water. At this point, I then evacuated any clots out of the bladder and then the catheter was connected to gravity drainage and this marked conclusion of the procedure. The patient was then taken out of dorsal lithotomy position, awakened from anesthesia, and transported to the recovery room in stable condition. ESTIMATED BLOOD LOSS: 10 mL. COMPLICATIONS: None. SPECIMENS: Biopsies of suprapubic tract. PLAN: The patient followup in the clinic in a week or two for pathology results and discuss further plan of care. JERRI
== END 2019-03-22 18:40 | disposition home or self-care (01) ==
LOC: M SDC 08:14
PROVIDERS: ATTEND Urology
DX: R31.0 Gross hematuria (principal); N13.30 Unspecified hydronephrosis; E78.49 Other hyperlipidemia; I71.4 Abdominal aortic aneurysm, without rupture; I25.10 Atherosclerotic heart disease of native coronary artery without angina pectoris; I25.2 Old myocardial infarction; I10 Essential (primary) hypertension; K21.9 Gastro-esophageal reflux disease without esophagitis; N40.0 Benign prostatic hyperplasia without lower urinary tract symptoms; Z79.82 Long term (current) use of aspirin; Z79.899 Other long term (current) drug therapy; Z86.73 Personal history of transient ischemic attack (TIA), and cerebral infarction without residual deficits; I73.9 Peripheral vascular disease, unspecified; Z87.891 Personal history of nicotine dependence
CPT/HCPCS: 52001; 52224; 52332; 74420; 88305; C1769; C2617; J0690; J1100; J2250; J2370; J2405; J2765; J3010; Q9961

== ENCOUNTER 2019-04-09 14:14 | Inpatient (IN) | payer MEDICARE ==
[~2019-04-09] VITALS: Ht 175.3 cm; Wt 69.4 kg
[~2019-04-09 14:14] MED LIST changes: -LR 1,000 ML IV ONE
[2019-04-09 15:01] LABS: BASO # 0.1 10^3/uL (0.0-0.2); BASO % 0.4 % (0.0-1.0); EOS # 0.3 10^3/uL (0.0-0.5); HEMATOCRIT 28.8 % (42.0-52.0); HEMOGLOBIN 8.8 g/dl (13.5-17.5); LYMPH # 1.8 10^3/uL (1.5-5.0); LYMPH % 12.5 % (24.0-44.0); MEAN CORPUSCULAR HEMOGLOBIN 27.1 pg (27.0-33.0); MEAN CORPUSCULAR HGB CONC 30.6 g/dl (32.0-36.5); MEAN CORPUSCULAR VOLUME 88.6 fl (80.0-96.0); MONO # 1.1 10^3/uL (0.0-0.8); MONO % 7.8 % (0.0-5.0); NEUTROPHILS % 76.7 % (36.0-66.0); PLATELET COUNT, AUTOMATED 392 10^3/uL (150-450); RED BLOOD COUNT 3.25 10^6/uL (4.30-6.10); WHITE BLOOD COUNT 14.3 10^3/uL (4.0-10.0)
[2019-04-09 15:20] LABS: INR 1.18; PROTHROMBIN TIME 14.7 SECONDS (11.8-14.0)
[2019-04-09 15:21] LABS: PARTIAL THROMBOPLASTIN TIME 32.6 SECONDS (25.0-38.4)
[2019-04-09 15:31] LABS: CALCIUM LEVEL 9.9 MG/DL (8.8-10.2); CREATININE FOR GFR 1.82 MG/DL (0.70-1.30); GLOMERULAR FILTRATION RATE 38.5 (>42); POTASSIUM SERUM 5.1 MEQ/L (3.5-5.1)
[2019-04-09] MEDS ORDERED: MAGN200T PO (15:36)
[2019-04-09] MEDS ORDERED: NS 1,000 ML IV ONE (16:15)
[2019-04-09] MEDS ORDERED: MAGN250T22 PO (17:27)
[2019-04-09] MEDS ORDERED: NITROGLYCERIN 0.4 MG SUBL TABLET SL PRN (17:45)
[2019-04-09] MEDS ORDERED: ACETAMINOPHEN TAB 650MG DOSE (2X325MG) PO PRN (17:45)
--- NOTE | 2019-04-09 17:49 | REP ---
CT abdomen and pelvis without IV or oral contrast: History: Acute renal failure. Hematuria. Comparison CT study June 18, 2018. CT findings: A double pigtail ureteral stent is noted in place on the right side on digital installation engineer view. There is a suprapubic catheter and the patient is status post aortobi-iliac stent graft repair for abdominal aortic aneurysm. Axial CT images demonstrate several noncalcified pulmonary nodules ranging up to of 7 mm in diameter. These appear to be new when compared with the June 18, 2018 study. Pulmonary metastatic disease cannot be excluded. There is no evidence of pleural effusion. There is a 5.2 x 4.3 x 4.1 cm right adrenal mass. An accessory splenule is seen. No pancreatic abnormality is appreciated. There are tiny opaque gallstones in the gallbladder. No focal liver lesion is seen. No focal splenic lesion is seen. Aortobiiliac artery stent graft is seen in place in the abdominal aortic aneurysm. The aneurysm measures 4.7 cm in AP dimension. This is unchanged. There is new mild aortocaval lymphadenopathy in the retroperitoneum. There are two or three lymph nodes here which were not present previously. Suprapubic bladder catheter is again seen. There is heterogeneous higher attenuation material in the bladder consistent with clot and/or neoplasm. This is similar to the prior study. A small quantity of air is seen. There appears to be wall thickening in the urinary bladder. There is induration or soft tissue density at the suprapubic cystostomy abdominal wall entry site. This is increased from the prior study and could be neoplastic involvement at the anterior abdominal wall in the suprapubic region as well. The previously noted left inguinal hernia is not apparent today. No abdominal wall defect is seen. Bone window settings demonstrate a 2.6 cm bony destructive lesion in the left posterior iliac bone which is a new finding consistent with a hematogenous metastasis. Impression: Findings consistent with metastatic disease with new retroperitoneal adenopathy in the aortocaval region and multiple new pulmonary nodules in the lung bases. There is a new lytic lesion in the left iliac bone posteriorly. There appears to be soft tissue density surrounding the cystostomy tube in the suprapubic region and extensive soft tissue density is seen in the urinary bladder although some of this may be thrombus. There is a 5 cm mass in the right adrenal gland. Electronically Signed by Mina Acharya MD 04/09/2019 05:54 P
--- NOTE | 2019-04-09 18:23 | HPEPDOC ---
General Date of Admission 04/09/19 Date of Service: Apr 09, 2019 Chief Complaint The patient is a 79-year-old male admitted with a reason for visit of Urinary Problem. Source: Patient Exam Limitations: No limitations Timing/Duration: Day(s) Severity: Mild History of Present Illness Patient is 79 years old male with past history of coronary artery diseases, hypertension, hyperlipidemia, CVA in 2012, [place], a chronic suprapubic catheter, intermittent gross hematuria, and right hydronephrosis of unknown cause, who was admitted to the hospital. Patient stated that he has been having increased gross hematuria for past few days with blood clots in the urine. Of note patient did have cystoscopy with biopsy recently which was negative for malignancy. In emergency room CT of abdomen and pelvis showed Findings consistent with metastatic disease with new retroperitoneal adenopathy in the aortocaval region and multiple new pulmonary nodules in the lung bases. There is a new lytic lesion in the left iliac bone posteriorly. Patient denies fever, chills, nausea, vomiting, chest pain, diarrhea Home Medications Scheduled Aspirin (Ecotrin) 81 Mg Tablet.dr, 81 MG PO QHS, (Reported) Atorvastatin Calcium (Atorvastatin Calcium) 40 Mg Tab, 40 MG PO QHS, (Reported) Cholecalciferol (Vitamin D3) (Vitamin D3) 400 Unit Capsule, 400 UNIT PO QHS, (Reported) Finasteride (Finasteride) 5 Mg Tab, 5 MG PO QHS, (Reported) Gabapentin (Gabapentin) 100 Mg Cap, 100 MG PO TID, (Reported) Hydrochlorothiazide (Hydrochlorothiazide) 12.5 Mg Cap, 12.5 MG PO DAILY, (Reported) Lisinopril (Lisinopril) 20 Mg Tab, 20 MG PO DAILY, (Reported) Magnesium (Magnesium) 250 Mg Tablet, 250 MG PO DAILY, (Reported) Metoprolol Succinate (Toprol Xl) 100 Mg Tab.er.24h, 100 MG PO DAILY, (Reported) Multivitamin (Multivitamins) 1 Cap Cap, 1 CAP PO QHS, (Reported) Omeprazole (Omeprazole) 20 Mg Cap, 20 MG PO BID, (Reported) Scheduled PRN Acetaminophen (Acetaminophen) 325 Mg Tab, 650 MG PO Q8H PRN for PAIN / FEVER, (Reported) Nitroglycerin (Nitroglycerin) 0.4 Mg Sub, 0.4 MG SL NITRO PRN for CHEST PAIN, (Reported) Nystatin/Triamcin (Nystatin-Triamcinolone Ointm) 1 Oin Oin, 1 APLCT TOP QID PRN for RASH AROUND CATHETER, (Reported) apply to affected area(s) Allergies Coded Allergies: No Known Allergies (Unverified , 03/22/19) Past Medical History Medical History 1. Coronary artery disease. 2. Hypertension. 3. Hyperlipidemia. 4. Abdominal aortic aneurysm 5. BPH 6. Urethral strictures 7. Suprapubic catheter 8. GERD 9. Gross hematuria 10. Cerebral infarct in 2012 11. Peripheral vascular disease 12. 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 Suprapubic catheter placement 3. Aortic aneurysm repair 4. Coronary stent placement x 2 Family History positive for heart disease in father Social History * Smoker: former Smoker Alcohol: rarely A-FIB/CHADSVASC A-FIB History Current/History of A-Fib/PAF?: No Current PO Anticoag Therapy: No Review of Systems Constitutional: Denies: Chills, Fever Eyes: Denies: Pain, Vision change ENT: Denies: Head Aches Skin: Denies: Rash, Lesions Pulmonary: Denies: Dyspnea, Cough Cardiovascular: Denies: Palpitations Gastrointestinal: Denies: Vomiting Genitourinary: Reports: Dysuria, Hematuria Hematologic: Denies: Bruising Endocrine: Denies: Polydipsia, Polyphagia Musculoskeletal: Denies: Neck Pain, Back Pain Neurological: Denies: Weakness, Numbness Psych: Reports: Mood Normal Physical Examination General Exam: Positive: Alert, Cooperative Eye Exam: Positive: PERRLA ENT Exam: Positive: Atraumatic Neck Exam: Positive: Supple; Negative: JVD Chest Exam: Positive: Clear to auscultation Heart Exam: Positive: Rate Normal Telemetry: Positive: No significant arrhythmia Abdomen Exam: Positive: Normal bowel sounds Extremity Exam: Negative: Clubbing, Cyanosis Skin Exam: Positive: Nl turgor and temperature Neuro Exam: Positive: Cranial Nerves 3-12 NL Psych Exam: Positive: Mental status NL Vital Signs Vital Signs Date Time Temp Pulse Resp B/P (MAP) Pulse Ox O2 Delivery O2 Flow Rate FiO2 04/09/19 17:01 86 19 100 Room Air 04/09/19 16:45 133/67 (89) 04/09/19 14:15 98.7 Laboratory Data Labs 24H Laboratory Tests 2 04/09/19 14:50: Immature Granulocyte % (Auto) 0.6, Neutrophils (%) (Auto) 76.7H, Lymphocytes (%) (Auto) 12.5L, Monocytes (%) (Auto) 7.8H, Eosinophils (%) (Auto) 2.0, Basophils (%) (Auto) 0.4, Neutrophils # (Auto) 11.0H, Lymphocytes # (Auto) 1.8, Monocytes # (Auto) 1.1H, Eosinophils # (Auto) 0.3, Basophils # (Auto) 0.1, Nucleated Red Blood Cells % (auto) 0.0, Prothrombin Time 14.7H, Prothromb Time International Ratio 1.18, Activated Partial Thromboplast Time 32.6, Anion Gap 11, Glomerular Filtration Rate 38.5L, Calcium Level 9.9 CBC/BMP Laboratory Tests 04/09/19 14:50 Assessment/Plan Patient is 79 years old male with past history of coronary artery diseases, hypertension, hyperlipidemia, CVA in 2011, [place], a chronic suprapubic catheter, intermittent gross hematuria, and right hydronephrosis of unknown cause, who was admitted to the hospital. Patient stated that he has been having increased gross hematuria for past few days with blood clots in the urine. Of note patient did have cystoscopy with biopsy recently which was negative for malignancy. In emergency room CT of abdomen and pelvis showed Findings consistent with metastatic disease with new retroperitoneal adenopathy in the aortocaval region and multiple new pulmonary nodules in the lung bases Problems (1) Lymphadenopathy Status: Chronic Problem Text: CT shows new mild aortocaval lymphadenopathy in the retroperitoneum. There are two or three lymph nodes here which were not present previously. There is a 5.2 x 4.3 x 4.1 cm right adrenal mass. Bone window settings demonstrate a 2.6 cm bony destructive lesion in the left tissue technician ior iliac bone which is a new finding consistent with a hematogenous metastasis. I will discuss tomorrow with interventional radiologist biopsy of suspicious lesion. (2) Gross hematuria Status: Acute Problem Text: Dr. Spencer urologist recommended bladder irrigation Hematuria of unknown etiology, most likely secondary to interstitial cystitis Previous cystoscopy did not reveal bladder mass Hemoglobin is 8.8 Will transfuse patient developed symptoms or hemoglobin less than 7 (3) Coronary artery disease Status: Chronic Problem Text: I will hold aspirin 81 due to gross hematuria Continue beta blockers Plan / VTE VTE Prophylaxis Ordered?: No VTE Exclusion Pharmacological: Active Bleeding JENI SHARIF DO Apr 09, 2019 18:23
[2019-04-09 18:48] VITALS: BP 137/70
[2019-04-09] MEDS: GABAPENTIN 100 MG CAP PO SCH (20:12)
[2019-04-09] MEDS: FINASTERIDE 5 MG TAB PO SCH (20:12)
[2019-04-09] MEDS: OMEPRAZOLE 20 MG CAP PO SCH (20:12)
[2019-04-09] MEDS: ATORVASTATIN 20 MG TAB PO SCH (20:12)
[2019-04-09 22:00] VITALS: BP 114/55
[2019-04-10] VITALS (12 sets, daily range): BP systolic 97–133; BP diastolic 49–64
[2019-04-10 06:03] LABS: HEMATOCRIT 25.8 % (42.0-52.0); HEMOGLOBIN 7.7 g/dl (13.5-17.5); MEAN CORPUSCULAR HEMOGLOBIN 26.6 pg (27.0-33.0); MEAN CORPUSCULAR HGB CONC 29.8 g/dl (32.0-36.5); PLATELET COUNT, AUTOMATED 329 10^3/uL (150-450); WHITE BLOOD COUNT 12.7 10^3/uL (4.0-10.0)
[2019-04-10 06:24] LABS: CALCIUM LEVEL 9.6 MG/DL (8.8-10.2); CREATININE FOR GFR 1.67 MG/DL (0.70-1.30); GLOMERULAR FILTRATION RATE 42.6 (>42); MAGNESIUM LEVEL 1.8 MG/DL (1.8-2.4); POTASSIUM SERUM 4.6 MEQ/L (3.5-5.1)
[2019-04-10] MEDS: hydroCHLOROthiazide 12.5 MG CAPSULE PO SCH (08:05)
[2019-04-10] MEDS: GABAPENTIN 100 MG CAP PO SCH ×3 (08:05→19:54)
[2019-04-10] MEDS: OMEPRAZOLE 20 MG CAP PO SCH ×2 (08:05→19:54)
[2019-04-10] MEDS: METOPROLOL SUCC (TopROL XL) 100MG *XL* TAB PO SCH (08:06)
[2019-04-10] MEDS ORDERED: LIDOCAINE 1% MDV 20ML VIAL As Ordered ONE (11:20)
--- NOTE | 2019-04-10 11:48 | IPNPDOC ---
Text Note Date of Service The patient was seen on 04/10/19. NOTE Subjective: No any acute events overnight. Hematuria resolved, urine in the bag clear and yellow. Objective: GENERAL APPEARANCE: not in apparent distress HEENT: Normocephalic, atraumatic. Mucous members moist and pink CARDIOVASCULAR: Regular rate and rhythm. No murmurs, rubs or gallops. Radial pulses are intact. There is no lower extremity edema LUNGS: Diminished lung sounds ABDOMEN: Abdomen is soft and nontender, suprapubic catheter in place MUSCULOSKELETAL: Range of motion is intact in all 4 extremities NEUROLOGICAL: Cranial nerves II-12 are grossly intact. Speech is not dysarthric Assessment/Plan Patient is 79 years old male with past history of coronary artery diseases, hypertension, hyperlipidemia, CVA in 2011, [place], a chronic suprapubic catheter, intermittent gross hematuria, and right hydronephrosis of unknown cause, who was admitted to the hospital. Patient stated that he has been having increased gross hematuria for past few days with blood clots in the urine. Of note patient did have cystoscopy with biopsy recently which was negative for malignancy. In emergency room CT of abdomen and pelvis showed Findings consistent with metastatic disease with new retroperitoneal adenopathy in the aortocaval region and multiple new pulmonary nodules in the lung bases Problems (1) Lymphadenopathy CT shows new mild aortocaval lymphadenopathy in the retroperitoneum. There are two or three lymph nodes here which were not present previously. There is a 5.2 x 4.3 x 4.1 cm right adrenal mass. Bone window settings demonstrate a 2.6 cm bony destructive lesion in the left posterior iliac bone which is a new finding consistent with a hematogenous metastasis. Appreciate/agree with interventional radiologist -biopsy of suspicious lesion (2) Gross hematuria Resolved Dr. Spencer urologist recommended bladder irrigation Hematuria of unknown etiology, most likely secondary to interstitial cystitis Previous cystoscopy did not reveal bladder mass (3) Coronary artery disease I will hold aspirin 81 due to gross hematuria Continue beta blockers Symptomatic anemia Patient tachycardic, hemoglobin 7.7 Will transfuse 2 units of blood VS,Fishbone, I+O VS, Fishbone, I+O Laboratory Tests 04/09/19 14:50 04/10/19 05:20 Vital Signs Date Time Temp Pulse Resp B/P (MAP) Pulse Ox O2 Delivery O2 Flow Rate FiO2 04/10/19 11:11 98.2 84 16 99 Room Air 1/7/20 08:06 130/65 I&O- Last 24 Hours up to 6 AM 04/10/19 06:00 Intake Total 1810 ml Output Total 600 ml Balance 1210 ml JENI SHARIF DO Apr 10, 2019 11:48
[2019-04-10] MEDS ORDERED: NS 1,000 ML IV SCH (13:00)
--- NOTE | 2019-04-10 18:26 | REP ---
CT-GUIDED RIGHT ILIAC BONE BIOPSY The procedure was performed under the direct supervision of Dr. Acharya. The patient has a history to 0.6 cm bony destructive lesion in the left posterior iliac bone seen on a previous CT scan performed on 04/09/2019. The risks and benefits of the procedure were explained to the patient and informed consent was obtained. The left iliac bone lesion was localized using CT guidance. The skin was prepped and draped in a sterile fashion. 1% lidocaine was used as a local anesthetic. Using CT guidance a 17/18 gauge coaxial needle biopsy system was inserted and advanced into the lesion. Five core biopsy samples were obtained and sent to lab. The patient tolerated the procedure well and there were no immediate complications. After the appropriate amount of monitored convalescence the patient was discharged from the department. Electronically Signed by DESI Hackett 04/10/2019 04:09 P Electronically Signed by Mina Acharya MD 04/10/2019 06:17 P
[2019-04-10] MEDS: FINASTERIDE 5 MG TAB PO SCH (19:54)
[2019-04-10] MEDS: ATORVASTATIN 20 MG TAB PO SCH (19:54)
[2019-04-11 06:00] VITALS: BP 126/64
[2019-04-11 06:30] LABS: HEMATOCRIT 30.5 % (42.0-52.0); HEMOGLOBIN 9.6 g/dl (13.5-17.5); MEAN CORPUSCULAR HEMOGLOBIN 27.7 pg (27.0-33.0); MEAN CORPUSCULAR HGB CONC 31.5 g/dl (32.0-36.5); MEAN CORPUSCULAR VOLUME 88.2 fl (80.0-96.0); PLATELET COUNT, AUTOMATED 254 10^3/uL (150-450); RED BLOOD COUNT 3.46 10^6/uL (4.30-6.10); WHITE BLOOD COUNT 11.6 10^3/uL (4.0-10.0)
[2019-04-11 06:34] LABS: CALCIUM LEVEL 9.1 MG/DL (8.8-10.2); CREATININE FOR GFR 1.65 MG/DL (0.70-1.30); GLOMERULAR FILTRATION RATE 43.2 (>42); POTASSIUM SERUM 4.5 MEQ/L (3.5-5.1)
[2019-04-11] MEDS: GABAPENTIN 100 MG CAP PO SCH (08:08)
[2019-04-11 08:09] VITALS: BP 137/75
[2019-04-11] MEDS: OMEPRAZOLE 20 MG CAP PO SCH (08:09)
[2019-04-11] MEDS: METOPROLOL SUCC (TopROL XL) 100MG *XL* TAB PO SCH (08:09)
[2019-04-11] MEDS: hydroCHLOROthiazide 12.5 MG CAPSULE PO SCH (08:09)
[2019-04-11 09:23] LABS: CORTISOL AM 19.5 UG/DL (4.3-22.4)
--- NOTE | 2019-04-11 13:41 | DS.PDOC ---
Discharge Summary General Date of Admission Apr 09, 2019 at 17:38 Date of Discharge 04/11/19 Discharge Summary PROCEDURES PERFORMED DURING STAY: None. ADMITTING DIAGNOSES: Lymphadenopathy Gross hematuria Coronary artery disease Metastatic cancer of unknown origin DISCHARGE DIAGNOSES: Lymphadenopathy Gross hematuria Coronary artery disease Metastatic cancer of unknown origin COMPLICATIONS/CHIEF COMPLAINT: Coronary Artery Disease Gross Hematuria. HISTORY OF PRESENT ILLNESS:Patient is 79 years old male with past history of coronary artery diseases, hypertension, hyperlipidemia, CVA in 2011, [place], a chron ic suprapubic catheter, intermittent gross hematuria, and right hydronephrosis of unknown cause, who was admitted to the hospital. Patient stated that he has been having increased gross hematuria for past few days with blood clots in the urine. Of note patient did have cystoscopy with biopsy recently which was negative for malignancy. In emergency room CT of abdomen and pelvis showed Findings consistent with metastatic disease with new retroperitoneal adenopathy in the aortocaval region and multiple new pulmonary nodules in the lung bases HOSPITAL COURSE: During hospital stay following issue addressed Lymphadenopathy/ metastatic cancer of unknown origin CT shows new mild aortocaval lymphadenopathy in the retroperitoneum. There are two or three lymph nodes here which were not present previously. There is a 5.2 x 4.3 x 4.1 cm right adrenal mass. Bone window settings demonstrate a 2.6 cm bony destructive lesion in the left posterior iliac bone which is a new finding consistent with a hematogenous metastasis. interventional radiologist did biopsy of suspicious lesion. Result: Left iliac bone mass, image-guided biopsy: Positive for malignancy, consistent with metastatic carcinoma, suspicious for urothelial primary Recommended follow-up with oncologist (2) Gross hematuria Dr. Spencer urologist recommended bladder irrigation Previous cystoscopy did not reveal bladder mass Patient received 2 units of blood transfusion due to symptomatic anemia (3) Coronary artery disease I will hold aspirin 81 due to gross hematuria Continue beta blockers DISCHARGE MEDICATIONS: Please see below. ALLERGIES: Please see below. PHYSICAL EXAMINATION ON DISCHARGE: Objective: VITAL SIGNS: Please see below. GENERAL APPEARANCE: not in apparent distress HEENT: Normocephalic, atraumatic. Mucous members moist and pink CARDIOVASCULAR: Regular rate and rhythm. No murmurs, rubs or gallops. Radial pulses are intact. There is no lower extremity edema LUNGS: Diminished lung sounds ABDOMEN: Abdomen is soft and nontender, suprapubic catheter in place, gross hematuria MUSCULOSKELETAL: Range of motion is intact in all 4 extremities NEUROLOGICAL: Cranial nerves II-12 are grossly intact. Speech is not dysarthric LABORATORY DATA: Please see below. IMAGING: see above PROGNOSIS: Guarded ACTIVITY: As tolerated DIET: Cardiac DISCHARGE PLAN: Home DISPOSITION: 01 Home, Self-Care. DISCHARGE INSTRUCTIONS: Follow-up with oncologist and PCP ITEMS TO FOLLOWUP ON ON OUTPATIENT: CBC in 2-3 days DISCHARGE CONDITION: Stable TIME SPENT ON DISCHARGE: Greater than 15 minutes. Vital Signs/I&Os Vital Signs Date Time Temp Pulse Resp B/P (MAP) Pulse Ox O2 Delivery O2 Flow Rate FiO2 04/11/19 08:09 98 137/75 04/11/19 06:00 97.6 20 96 04/10/19 18:54 Room Air I&O- Last 24 Hours up to 6 AM 04/11/19 06:00 Intake Total 2210 ml Output Total 2100 ml Balance 110 ml Laboratory Data Labs 24H Laboratory Tests 2 04/10/19 19:09: 04/11/19 05:17: Nucleated Red Blood Cells % (auto) 0.0 04/11/19 05:19: Anion Gap 9, Glomerular Filtration Rate 43.2, Calcium Level 9.1, Cortisol AM Sample 19.5 CBC/BMP Laboratory Tests 04/11/19 05:17 04/11/19 05:19 Discharge Medications Scheduled Aspirin (Ecotrin) 81 Mg Tablet.dr, 81 MG PO QHS, (Reported) Atorvastatin Calcium (Atorvastatin Calcium) 40 Mg Tab, 40 MG PO QHS, (Reported) Cholecalciferol (Vitamin D3) (Vitamin D3) 400 Unit Capsule, 400 UNIT PO QHS, (Reported) Finasteride (Finasteride) 5 Mg Tab, 5 MG PO QHS, (Reported) Gabapentin (Gabapentin) 100 Mg Cap, 100 MG PO TID, (Reported) Hydrochlorothiazide (Hydrochlorothiazide) 12.5 Mg Cap, 12.5 MG PO DAILY, (Reported) Lisinopril (Lisinopril) 20 Mg Tab, 20 MG PO DAILY, (Reported) Magnesium (Magnesium) 250 Mg Tablet, 250 MG PO DAILY, (Reported) Metoprolol Succinate (Toprol Xl) 100 Mg Tab.er.24h, 100 MG PO DAILY, (Reported) Multivitamin (Multivitamins) 1 Cap Cap, 1 CAP PO QHS, (Reported) Omeprazole (Omeprazole) 20 Mg Cap, 20 MG PO BID, (Reported) Scheduled PRN Acetaminophen (Acetaminophen) 325 Mg Tab, 650 MG PO Q8H PRN for PAIN / FEVER, (Reported) Nitroglycerin (Nitroglycerin) 0.4 Mg Sub, 0.4 MG SL NITRO PRN for CHEST PAIN, (Reported) Nystatin/Triamcin (Nystatin-Triamcinolone Ointm) 1 Oin Oin, 1 APLCT TOP QID PRN for RASH AROUND CATHETER, (Reported) apply to affected area(s) Allergies Coded Allergies: No Known Allergies (Unverified , 03/22/19) JENI SHARIF DO Apr 11, 2019 13:41
== END 2019-04-11 13:05 | disposition home or self-care (01) | DRG 687 ==
LOC: M ED 14:14 → M ED INP 17:38 → ENRESERV 18:23 → M MSPAV 18:48
PROVIDERS: ADMIT Internal Medicine; ATTEND Internal Medicine
PROC: 07DR3ZX Extraction of Iliac Bone Marrow, Percutaneous Approach, Diagnostic (ICD-10-PCS; principal; 2019-04-10 11:30)
DX: C68.9 Malignant neoplasm of urinary organ, unspecified (principal); C79.51 Secondary malignant neoplasm of bone; D59.4 Other nonautoimmune hemolytic anemias; N13.30 Unspecified hydronephrosis; R31.0 Gross hematuria; R59.0 Localized enlarged lymph nodes; I25.10 Atherosclerotic heart disease of native coronary artery without angina pectoris; I10 Essential (primary) hypertension; E78.5 Hyperlipidemia, unspecified; Z86.73 Personal history of transient ischemic attack (TIA), and cerebral infarction without residual deficits; I25.2 Old myocardial infarction; Z96.0 Presence of urogenital implants; R91.8 Other nonspecific abnormal finding of lung field; Z79.82 Long term (current) use of aspirin; Z79.899 Other long term (current) drug therapy; I71.4 Abdominal aortic aneurysm, without rupture; N40.1 Benign prostatic hyperplasia with lower urinary tract symptoms; N13.5 Crossing vessel and stricture of ureter without hydronephrosis; K21.9 Gastro-esophageal reflux disease without esophagitis; Z89.429 Acquired absence of other toe(s), unspecified side; Z95.1 Presence of aortocoronary bypass graft; Z87.891 Personal history of nicotine dependence

== ENCOUNTER → 2019-05-29 | Outpatient (POV) | payer MEDICARE ==
[~2019-05-29] VITALS: Ht 175.3 cm; Wt 71.4 kg
[~2019-05-29] MED LIST changes: +CIPR250T3 PO; +MAGN200T PO; +MAGN250T22 PO; -OMEP-172 PO; +OMEP1CAP73 PO
[2019-05-29 13:30] VITALS: BP 139/65
--- NOTE | 2019-05-30 17:24 | IRPN ---
[facility] IR Progress Note IR Progress Note DATE: May 29, 2019 FOLLOW-UP: 79-year-old male with bladder cancer and hematuria status post right nephrostomy access and percutaneous nephroureteral catheter placement by myself in March 2019. 10 days post percutaneous nephroureteral catheter placement, urology used this percutaneous nephroureteral access to perform retrograde ureteroscopy, internal stenting and removed the percutaneous nephroureteral catheter. Patient continued to hemorrhage post internal stenting and was seen in [place] where urology removed the internal stent and IR replaced a right nephrostomy catheter. Patient doing well since. Right nephrostomy catheter draining well without blood. Patient has a suprapubic Giraldo catheter. No fevers or chills. No pain. ON EXAMINATION: Right nephrostomy catheter with clear urine in the bag. IMPRESSION: Patient doing well with right nephrostomy catheter. Failed stent. Patient will likely be lifelong right nephrostomy catheter dependent. We will arrange for routine 12 week exchanges. Thank you for this referral CC Dr. Cavazos Allergies Coded Allergies: No Known Allergies (Unverified , 03/22/19) VS,Fishbone, I+O VS, Fishbone, I+O Vital Signs Date Time Temp Pulse Resp B/P (MAP) Pulse Ox O2 Delivery O2 Flow Rate FiO2 05/29/19 13:30 97.9 84 18 139/65 (89) 97 Room Air DUNCAN HOOKER MD May 30, 2019 17:24
== END ==
LOC: M IRPOV 13:17
PROVIDERS: ATTEND Radiology Diagnostic Radiology
DX: C67.9 Malignant neoplasm of bladder, unspecified (principal); Z96.0 Presence of urogenital implants

== ENCOUNTER → 2019-07-26 | Outpatient (CLI) | payer MEDICARE ==
[~2019-07-26] MED LIST changes: +ISOVUE-300 61% 50ML VIAL As Ordered ONE; +LIDOCAINE 1% MDV 20ML VIAL As Ordered ONE; +MIDAZOLAM INJ 2MG/2ML VIAL (J2250 PER 1MG) As Ordered ONE; +VITA400T15 PO; +ceFAZolin 1GM VIAL (J0690 PER 500MG) As Ordered ONE; +diphenhydrAMINE 50MG/ML VIAL (J1200) As Ordered ONE; +fentaNYL 100 MCG/2 ML INJECTION (J3010) As Ordered ONE
[2019-07-26 10:33] LABS: INR 1.15; PROTHROMBIN TIME 14.5 SECONDS (11.8-14.0)
[2019-07-26 11:55] VITALS: BP 152/67
--- NOTE | 2019-07-26 13:09 | REP ---
IR Nephrostomy catheter exchange. IR Nephrostogram and ureterogram. Clinical information: Bladder cancer. Hematuria. Nephrostomy dependent for urinary diversion. Physician: Dr. Frey. Procedure: The patient was advised of the benefits, risks and alternatives of the procedure and informed consent was obtained. The time-out was performed with verification of the patient's name, MRN, site of procedure and type of procedure to be performed. The patient was positioned in the prone position on the angiographic table. The site was prepped and draped in the usual sterile fashion. Moderate sedation was not required. The physician spent 30 minutes of continuous face to face time with the patient. A publishing editor radiograph reveals a right-sided nephrostomy catheter in expected location. An initial nephrostogram and ureterogram was performed through the preexisting catheter confirming pigtail positioned in the renal collecting system. The catheter and sutures were cut, an Amplatz wire was passed into the renal collecting system. The preexisting nephrostomy catheter was removed over the wire. A new 10 -I[place]ic nephrostomy catheter was advanced in the renal collecting system. A final nephrostogram and ureterogram was performed confirming position of the pigtail in the renal pelvis with mild hydronephrosis. Ureterogram demonstrates ureter is patent to bladder. The catheter was secured in position with 2-0 Prolene and a sterile dressing was applied. The catheter was placed gravity drainage. The patient tolerated the procedure well and was returned to the [facility] in stable condition. EBL: Less than 5 ml. Complications: None. Conclusion: 1. Nephrostogram and ureterogram demonstrate ureter is patent to bladder 2. Successful right nephrostomy catheter exchange for urinary diversion for bladder cancer and hematuria. Patient to return in 12 weeks for routine catheter exchange. Thank you this referral. Electronically Signed by Janice Frey MD 07/26/2019 01:07 P
== END ==
LOC: M IRPRO 09:24
PROVIDERS: ATTEND Radiology Diagnostic Radiology
DX: C67.9 Malignant neoplasm of bladder, unspecified (principal); R31.9 Hematuria, unspecified
CPT/HCPCS: 50435; 85610; C1729; C1769; J0690; J1200; J2250; J3010; Q9967

== ENCOUNTER → 2019-08-07 | Outpatient (CLI) | payer MEDICARE ==
[~2019-08-07] MED LIST changes: +GASTROGRAFIN SOLUTION 30ML (Q9963) As Ordered ONE; -ISOVUE-300 61% 50ML VIAL As Ordered ONE; -LIDOCAINE 1% MDV 20ML VIAL As Ordered ONE; -MIDAZOLAM INJ 2MG/2ML VIAL (J2250 PER 1MG) As Ordered ONE; -ceFAZolin 1GM VIAL (J0690 PER 500MG) As Ordered ONE; -diphenhydrAMINE 50MG/ML VIAL (J1200) As Ordered ONE; -fentaNYL 100 MCG/2 ML INJECTION (J3010) As Ordered ONE
--- NOTE | 2019-08-07 13:41 | REP ---
CT CHEST WITHOUT IV CONTRAST: CT chest performed without IV contrast. Sagittal and coronal reconstruction images are performed. There is mild scattered interstitial fibrosis bilaterally. No suspicious nodule is seen in either lung. No axillary or mediastinal adenopathy is seen. There is moderate atherosclerotic calcification of the thoracic aorta with mild ectasia of the ascending thoracic aorta measuring up to 4 cm in AP dimension. Heart is not enlarged. There is no pleural or pericardial effusion. There are degenerative changes of the spine. IMPRESSION: No suspicious nodule or adenopathy seen. Electronically Signed by Shawn Aguayo MD 08/07/2019 03:53 P
--- NOTE | 2019-08-07 14:31 | REP ---
CT ABDOMEN AND PELVIS WITHOUT CONTRAST: CT abdomen and pelvis performed without oral or IV contrast. Sagittal and coronal reconstruction images are performed. Comparison 04/09/2019. The liver is grossly unremarkable as is the spleen and left adrenal gland. The right adrenal mass is unchanged in size measuring approximately 4.7 x 6.2 cm. The pancreas is grossly unremarkable. The left kidney is grossly unremarkable. The right kidney demonstrates a nephrostomy tube in the renal pelvis. Previously noted right ureteral stent has been removed. Distal abdominal aortic aneurysm is unchanged in caliber approximately 4.5 cm in maximum AP dimension. Aortobi-iliac stent is again noted. There is a mildly enlarged pre-aortic lymph node just below the pancreatic head, unchanged, measuring 1.9 cm in short axis. No other significant periaortic adenopathy is seen. There is no free air or free fluid. There is no bowel wall thickening. Tiny gallstones are seen in the gallbladder. A suprapubic catheter is again noted. There is decreased soft tissue thickening along the catheter in the anterior abdominal wall. There also appears to be decreased soft tissue thickening of the bladder. Left iliac lytic lesion is not definitely changed. IMPRESSION: Decreased soft tissue thickening of the bladder and along the anterior suprapubic catheter in the anterior abdominal wall. There does appear to be persistent mildly enlarged lymph node in the pre-aortic region just below the pancreatic head measuring 1.9 cm in diameter. Otherwise, no periaortic adenopathy is seen. There is no change in the left iliac lytic bone lesion. Previously noted right ureteral stent has been removed. There is a right nephrostomy tube in place. Right adrenal mass is unchanged. Electronically Signed by Shawn Aguayo MD 08/07/2019 03:54 P
== END ==
LOC: M RAD 11:06
PROVIDERS: ATTEND Internal Medicine Hematology
DX: C67.9 Malignant neoplasm of bladder, unspecified (principal); J84.10 Pulmonary fibrosis, unspecified; I70.0 Atherosclerosis of aorta; I77.810 Thoracic aortic ectasia
CPT/HCPCS: 71250; 74176; Q9963

== ENCOUNTER → 2019-10-18 | Outpatient (CLI) | payer MEDICARE ==
[~2019-10-18] MED LIST changes: +CIPROFLOXACIN 500MG TABLET As Ordered ONE; +FERR325T3 PO; -GASTROGRAFIN SOLUTION 30ML (Q9963) As Ordered ONE; +ISOVUE-300 61% 50ML VIAL As Ordered ONE; +LIDOCAINE 1% MDV 20ML VIAL As Ordered ONE
[2019-10-18 10:53] VITALS: BP 128/60
--- NOTE | 2019-10-24 10:57 | REP ---
IR Nephrostomy catheter exchange. IR Nephrostogram and ureterogram. Clinical information: Bladder cancer and hematuria. Chronic right nephrostomy for urinary diversion. Physician: Dr. Frey. Procedure: The patient was advised of the benefits, risks and alternatives of the procedure and informed consent was obtained. The time-out was performed with verification of the patient's name, MRN, site of procedure and type of procedure to be performed. The patient was positioned in the prone position on the angiographic table. The site was prepped and draped in the usual sterile fashion. Moderate sedation was not performed. The physician spent 30 minutes of continuous face to face time with the patient. A oil scout radiograph reveals a right-sided nephrostomy catheter in expected location. An initial nephrostogram and ureterogram was performed through the preexisting catheter confirming pigtail positioned in the renal collecting system. Lidocaine was injected around the catheter exit site. The catheter and sutures were cut, an Amplatz wire was passed into the renal collecting system. The preexisting nephrostomy catheter was removed over the wire. A new 10 [place] nephrostomy catheter was advanced into the renal collecting system. A final nephrostogram and ureterogram was performed confirming position of the pigtail in the renal pelvis with hydronephrosis and hydroureter. The catheter was secured in position with 2-0 Prolene and a sterile dressing was applied. The catheter was placed gravity drainage. The patient tolerated the procedure well and was returned to the [facility] in stable condition. EBL: Less than 5 ml. Complications: None. Conclusion: 1. Nephrostogram and ureterogram demonstrate right-sided hydronephrosis and hydroureter. 2. Successful right nephrostomy catheter exchange. Patient to return in 12 weeks for routine catheter exchange. Thank you this referral. Electronically Signed by Janice Frey MD 10/24/2019 10:55 A
== END ==
LOC: M IRPRO 09:24
PROVIDERS: ATTEND Radiology Diagnostic Radiology
DX: C67.9 Malignant neoplasm of bladder, unspecified (principal); R31.0 Gross hematuria; N13.30 Unspecified hydronephrosis
CPT/HCPCS: 50435; C1729; C1769; Q9967

== ENCOUNTER → 2019-11-10 | Emergency (ER) | payer MEDICARE ==
[~2019-11-10] MED LIST changes: -CIPROFLOXACIN 500MG TABLET As Ordered ONE; -ISOVUE-300 61% 50ML VIAL As Ordered ONE; +KEYT1INJ IV; -LIDOCAINE 1% MDV 20ML VIAL As Ordered ONE; +PRED10TA2 PO
== END | disposition home or self-care (01) ==
LOC: M ED 12:10
DX: T83.031A Leakage of indwelling urethral catheter, initial encounter (principal); R31.9 Hematuria, unspecified; Z79.899 Other long term (current) drug therapy

== ENCOUNTER → 2019-11-15 | Outpatient (REF) | payer MEDICARE ==
[2020-01-06 10:13] LABS: APPEARANCE, URINE MANUAL CLOUDY (CLEAR); COLOR, URINE MANUAL RED (YELLOW)
[2020-01-06 10:14] LABS: BILIRUBIN, URINE MANUAL NEGATIVE (NEGATIVE); BLOOD URINE MANUAL POSITIVE (NEGATIVE); GLUCOSE, URINE (UA) MANUAL NEGATIVE (NEGATIVE); KETONE, URINE MANUAL NEGATIVE (NEGATIVE); LEUKOCYTE ESTERASE, URINE MAN POSITIVE (NEGATIVE); NITRITE, URINE MANUAL NEGATIVE (NEGATIVE); PROTEIN, URINE MANUAL 1+ mg/dL (NEGATIVE); RBC, URINE TNTC /hpf (0-3); SPECIFIC GRAVITY,URINE MANUAL 1.025 (1.002-1.035); UROBILINOGEN, URINE MANUAL NORMAL (NORMAL); WBC, URINE TNTC /hpf (0-3)
[2020-01-06 10:15] LABS: BACTERIA, URINE NONE SEEN; HYALINE CAST, URINE NONE SEEN /lpf (0-1); MUCUS, URINE SMALL AMOUNT (NEGATIVE); SQUAMOUS EPITHELIAL CELL URINE SMALL AMOUNT /hpf (SMALL AMT)
== END ==
LOC: M SMT 11:45
PROVIDERS: ATTEND Nurse Practitioner Women's Health
DX: R31.0 Gross hematuria (principal)

== ENCOUNTER 2019-11-22 11:59 | Emergency (ER) | payer MEDICARE ==
[~2019-11-22] VITALS: Ht 167.6 cm; Wt 66.4 kg
[~2019-11-22 11:59] MED LIST changes: -KEYT1INJ IV; -PRED10TA2 PO
[2019-11-22 14:36] LABS: BASO # 0.1 10^3/uL (0.0-0.2); BASO % 0.4 % (0.0-1.0); EOS # 0.6 10^3/uL (0.0-0.5); EOS % 4.6 % (0.0-3.0); HEMATOCRIT 29.1 % (42.0-52.0); HEMOGLOBIN 9.5 g/dl (13.5-17.5); LYMPH # 1.2 10^3/uL (1.5-5.0); LYMPH % 9.7 % (24.0-44.0); MEAN CORPUSCULAR HEMOGLOBIN 28.4 pg (27.0-33.0); MEAN CORPUSCULAR HGB CONC 32.6 g/dl (32.0-36.5); MEAN CORPUSCULAR VOLUME 86.9 fl (80.0-96.0); MONO % 7.5 % (0.0-5.0); NEUTROPHILS # 9.9 10^3/uL (1.5-8.5); NEUTROPHILS % 77.4 % (36.0-66.0); PLATELET COUNT, AUTOMATED 290 10^3/uL (150-450); RED BLOOD COUNT 3.35 10^6/uL (4.30-6.10); WHITE BLOOD COUNT 12.8 10^3/uL (4.0-10.0)
[2019-11-22 14:48] LABS: INR 1.08; PARTIAL THROMBOPLASTIN TIME 34.7 SECONDS (25.0-38.4); PROTHROMBIN TIME 14.2 SECONDS (11.8-14.0)
[2019-11-22 14:52] LABS: CALCIUM LEVEL 9.6 MG/DL (8.8-10.2); CREATININE FOR GFR 1.71 MG/DL (0.70-1.30); GLOMERULAR FILTRATION RATE 41.4 (>42); POTASSIUM SERUM 5.2 MEQ/L (3.5-5.1)
[2019-11-22] MEDS ORDERED: SOD POLYSTYRENE SULFONATE SUSP 15 GM/60 ML UD PO ONE (16:45)
[2019-11-22 16:57] VITALS: BP 123/58
[2019-12-14] MEDS ORDERED: PRED10TA2 PO (17:06)
[2019-12-26] MEDS ORDERED: PRED10TA2 PO (13:56)
[2020-01-10] MEDS ORDERED: KEYT1INJ IV (10:29)
[2020-01-11] MEDS ORDERED: PRED10TA2 PO (16:47)
== END 2019-11-22 17:00 | disposition home or self-care (01) ==
LOC: M ED 11:59
DX: R31.9 Hematuria, unspecified (principal); T83.098A Other mechanical complication of other urinary catheter, initial encounter; X58.XXXA Exposure to other specified factors, initial encounter; Y92.89 Other specified places as the place of occurrence of the external cause; I10 Essential (primary) hypertension; I25.10 Atherosclerotic heart disease of native coronary artery without angina pectoris; E78.5 Hyperlipidemia, unspecified; K21.9 Gastro-esophageal reflux disease without esophagitis; Z79.899 Other long term (current) drug therapy; Z87.891 Personal history of nicotine dependence

== ENCOUNTER → 2020-01-10 | Outpatient (CLI) | payer MEDICARE ==
[~2020-01-10] MED LIST changes: +CIPROFLOXACIN 500MG TABLET As Ordered ONE; +CIPROFLOXACIN 500MG TABLET PO ONE; +ISOVUE-300 61% 50ML VIAL As Ordered ONE; +KEYT1INJ IV; +LIDOCAINE 1% MDV 20ML VIAL As Ordered ONE; +NS 1,000 ML IV SCH; +PRED10TA2 PO
[2020-01-10 11:05] VITALS: BP 140/62
--- NOTE | 2020-01-16 12:27 | POST-OPPD ---
Postoperative Procedure Note Date Of Procedure: Jan 10, 2020 Time Of Procedure: 16:00 IR Nephrostomy catheter exchange. IR Nephrostogram and ureterogram. Clinical information: Bladder cancer and hematuria. Chronic right nephrostomy for urinary diversion. Physician: Dr. Frey. Procedure: The patient was advised of the benefits, risks and alternatives of the procedure and informed consent was obtained. The time-out was performed with verification of the patient's name, MRN, site of procedure and type of procedure to be performed. The patient was positioned in the prone position on the angiographic table. The site was prepped and draped in the usual sterile fashion. Moderate sedation was not performed. The physician spent 30 minutes of continuous face to face time with the patient. A acid loader radiograph reveals a right-sided nephrostomy catheter in expected location. An initial nephrostogram and ureterogram was performed through the preexisting catheter confirming pigtail positioned in the renal collecting system. Lidocaine was injected around the catheter exit site. The catheter and sutures were cut, an Amplatz wire was passed into the renal collecting system. The preexisting nephrostomy catheter was removed over the wire. A new 10 [place] nephrostomy catheter was advanced into the renal collecting system. A final nephrostogram and ureterogram was performed confirming position of the pigtail in the renal pelvis with hydronephrosis and hydroureter. The ureter is patent to the bladder. The catheter was secured in position with 2-0 Prolene and a sterile dressing was applied. The catheter was placed gravity drainage. The patient tolerated the procedure well and was returned to [facility] in stable condition. EBL: Less than 5 ml. Complications: None. Conclusion: 1. Nephrostogram and ureterogram demonstrate the right ureter is patent into the bladder. 2. Successful right nephrostomy catheter exchange for urinary diversion for bladder cancer. Patient to return in 12 weeks for routine catheter exchange. Thank you this referral. DUNCAN FREY MD Jan 16, 2020 12:27
== END ==
LOC: M IRPRO 10:12
PROVIDERS: ATTEND Radiology Diagnostic Radiology
DX: C67.9 Malignant neoplasm of bladder, unspecified (principal); R31.9 Hematuria, unspecified
CPT/HCPCS: 50435; C1729; C1769; Q9967

== ENCOUNTER 2020-03-10 12:40 | Inpatient (IN) | payer MEDICARE ==
[~2020-03-10] VITALS: Ht 165.1 cm; Wt 78.5 kg
[2020-03-10] VITALS (16 sets, daily range): BP systolic 81–127; BP diastolic 42–60; O2SAT 99
[~2020-03-10 12:40] MED LIST changes: -CIPROFLOXACIN 500MG TABLET As Ordered ONE; -CIPROFLOXACIN 500MG TABLET PO ONE; +ERGO80006 PO; -ISOVUE-300 61% 50ML VIAL As Ordered ONE; -LIDOCAINE 1% MDV 20ML VIAL As Ordered ONE; -NS 1,000 ML IV SCH
[2020-03-10] MEDS ORDERED: PRED10TA2 PO (12:56)
[2020-03-10] MEDS ORDERED: LIDOCAINE 1% MDV 50ML VIAL SC ONE (15:30)
[2020-03-10] MEDS ORDERED: LIDOCAINE 1% MDV 20ML VIAL As Ordered ONE (15:35)
[2020-03-10] MEDS ORDERED: LIDOCAINE 1% MDV 20ML VIAL SC ONE (15:45)
[2020-03-10] MEDS ORDERED: ALBUTEROL SULFATE 2.5 MG/0.5 ML INH NEB SOLN NEB PRN (16:00)
--- NOTE | 2020-03-10 16:00 | REP ---
INDICATION: new admission, intubated on arrival. COMPARISON: Comparison chest x-ray March 19, 2019.. TECHNIQUE: Semi-upright AP portable radiograph. FINDINGS: Nasogastric tube is seen coursing into the gastric fundus. An endotracheal tube is noted in good position at the level of the proximal clavicles. There is a skin fold projecting over the lateral chest. There is diffuse interstitial infiltrate versus edema pattern throughout the lung lopez bilaterally. The heart is mildly prominent in size. Aorta is somewhat tortuous. No pleural effusion is evident. IMPRESSION: Extensive diffuse interstitial lung disease, infiltrate versus edema. Mild cardiomegaly. NG tube in endotracheal tubes in good position. <Electronically signed by Cale Acharya > 03/10/20 [id number]
[2020-03-10] MEDS ORDERED: PROPOFOL 1,000 MG/100 ML VIAL As Ordered ONE (16:13)
[2020-03-10 16:46] LABS: ABG BASE EXCESS -3.6 (-2.0-2.0); ABG HCO3 20.9 MEQ/L (22.0-26.0); ABG O2 SATURATION 94.4 % (95.0-99.0); ABG PARTIAL PRESSURE CO2 35.5 mmHg (35.0-45.0); ABG PARTIAL PRESSURE O2 72.6 mmHg (75.0-100.0); ABG STANDARD HCO3 21.4 MEQ/L (22.0-26.0); ABG pH (ARTERIAL) 7.388 UNITS (7.350-7.450)
[2020-03-10 16:53] LABS: BASO % 0.1 % (0.0-1.0); EOS % 0.3 % (0.0-3.0); HEMATOCRIT 25.6 % (42.0-52.0); HEMOGLOBIN 8.2 g/dl (13.5-17.5); LYMPH # 0.3 10^3/uL (1.5-5.0); LYMPH % 3.4 % (24.0-44.0); MEAN CORPUSCULAR HEMOGLOBIN 30.6 pg (27.0-33.0); MEAN CORPUSCULAR VOLUME 95.5 fl (80.0-96.0); MONO # 0.2 10^3/uL (0.0-0.8); NEUTROPHILS # 7.9 10^3/uL (1.5-8.5); NEUTROPHILS % 91.5 % (36.0-66.0); PLATELET COUNT, AUTOMATED 115 10^3/uL (150-450); RED BLOOD COUNT 2.68 10^6/uL (4.30-6.10); WHITE BLOOD COUNT 8.6 10^3/uL (4.0-10.0)
[2020-03-10] MEDS ORDERED: MIDAZOLAM INJ 2MG/2ML VIAL (J2250 PER 1MG) IV PRN (17:00)
[2020-03-10] MEDS ORDERED: predniSONE 20 MG TAB NG SCH (17:00)
[2020-03-10] MEDS: NS 0.45% 1,000 ML IV SCH (17:04)
[2020-03-10] MEDS: propofoL 1,000 MG in IV 1 EA IV SCH ×2 (17:04→22:29)
[2020-03-10] MEDS: PANTOPRAZOLE 40MG VIAL (C9113 PER 1) IV SCH (17:10)
[2020-03-10] MEDS ORDERED: MULT-40 PO (17:13)
[2020-03-10 17:17] LABS: ALBUMIN 1.3 GM/DL (3.2-5.2); ALT/SGPT 122 U/L (12-78); BILIRUBIN,TOTAL 0.9 MG/DL (0.2-1.0); BLOOD UREA NITROGEN 31 MG/DL (7-18); CALCIUM LEVEL 9.3 MG/DL (8.8-10.2); CARBON DIOXIDE LEVEL 22 MEQ/L (21-32); CHLORIDE LEVEL 108 MEQ/L (98-107); CHOLESTEROL LEVEL 126 MG/DL (< 200); CPK CREATINE PHOSPHOKINASE 40 U/L (39-308); GLOMERULAR FILTRATION RATE > 60.0 (>42); GLUCOSE, FASTING 90 MG/DL (70-100); LDH LACTATE DEHYDROGENASE 397 U/L (87-241); MAGNESIUM LEVEL 1.9 MG/DL (1.8-2.4); PHOSPHORUS LEVEL 2.8 MG/DL (2.5-4.9); SODIUM LEVEL 136 MEQ/L (136-145); TOTAL PROTEIN 4.6 GM/DL (6.4-8.2); TRIGLYCERIDES LEVEL 147 MG/DL (<150)
[2020-03-10] MEDS ORDERED: SODIUM CHLORIDE 0.9% INJ 10 ML SYR IV PRN (17:45)
[2020-03-10] MEDS: PIPERACILLIN/TAZOBACTAM SOD 3.375 GM in D5W MINI-BAG PLUS 50 ML IV SCH ×2 (17:59→23:39)
[2020-03-10] MEDS ORDERED: SODIUM CHLORIDE 0.9% INJ 10 ML SYR IV SCH (18:00)
--- NOTE | 2020-03-10 19:20 | HPE ---
HISTORY AND PHYSICAL DATE OF ADMISSION: 03/10/2020 CHIEF COMPLAINT: Hypoxemic respiratory failure. History was obtained from the chart and from other collateral information as the patient is intubated and unable to provide history. HISTORY OF PRESENT ILLNESS: Mr. Yanez is a 80-year-old male with a past medical history of metastatic urothelial carcinoma, hypertension, hyperlipidemia, history of CVA, CAD, history of bladder outlet obstruction syndrome with an indwelling suprapubic catheter as well as a nephrostomy tube in the right kidney who presented to an outside hospital with complaints of generalized fatigue and shortness of breath. The patient has a previous history of frequent recurrent UTIs in the setting of his chronic indwelling suprapubic catheter. 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 He has been off of the pembrolizumab then since November of 2019 and on steroids chronically, last known dose 40 mg. During his admission at the outside hospital, the patient was found to have sepsis with a UTI and a mild lactic acidosis. He was also found to have acute hypoxemic respiratory failure and initially was requiring nasal cannula oxygen supplementation was per report up to five liters a minute. He was started on antibiotics with Zosyn and then deescalated to Levaquin. He was continued on the prednisone as well as with his other home medications and IV fluids. His lactic acid improved as well as his leukocytosis. Today he was noted to have increasing shortness of breath and dyspnea as well as worsening hypoxia. He was placed on a nonrebreather and an ABG reportedly drawn on the nonrebreather showed a pO2 in the 50s. The patient was therefore intubated and placed on mechanical ventilation and transferred here for further evaluation. MEDICAL AND SURGICAL HISTORY: 1. Hypertension. 2. Hyperlipidemia. 3. CVA in 2011. 4. CAD with history of CA and stent in 2006. 5. Abdominal aortic aneurysm. 6. History of metastatic urothelial cancer with a bladder outlet obstruction syndrome from urethral scarring with indwelling suprapubic catheter. 7. Nephrostomy tube in the right kidney. 8. Bilateral cataract. 9. History of ischemic toes with multiple amputations bilaterally. FAMILY HISTORY: Mother with a history of dementia, brother with a history of hepatocellular carcinoma. SOCIAL HISTORY: The patient had previously worked in the [employer] industry and is currently retired. He is a former smoker, had been up to two packs a day since the age of 17 and quit in 2009. He lives reportedly at home with his but the daughter is also adjacent. HOME MEDICATIONS: 1. Tylenol. 2. Vitamin D3. 3. Multivitamin. 4. Nitrostat p.r.n. 5. Metoprolol. 6. Finasteride. 7. Hydrochlorothiazide. 8. Omeprazole. 9. Ferrous Sulfate. 10. Prednisone 10 mg. q.i.d. 11. Lisinopril. 12. Atorvastatin. 13. Ciprofloxacin. ALLERGIES: No known drug allergies. PHYSICAL EXAMINATION: Vitals: Temperature 97.5, pulse 88, respirations 17, blood pressure 104/54, O2 sat 100% on ventilator at 50% FiO2. General: The patient is an elderly male, is lying in bed, is sedated and intubated on mechanical ventilator. He is minimally responsive to painful stimuli only. HEENT: Normocephalic, atraumatic. Pupils are pinpoint but sluggishly reactive. Mucous membranes are dry. Neck: Supple. Trachea is midline. No palpable cervical adenopathy. Cardiovascular: Regular rate and rhythm. Normal S-1, S-2. Unable to easily auscultate murmurs. Pulmonary: Coarse ventilator breath sounds bilaterally. No wheezes or rhonchi. Abdomen: Soft, nontender, nondistended. This is a suprapubic catheter in place which was reportedly changed at the outside hospital. There is a right-sided nephrostomy tube in place. There are sutures around the tube but not in the patient's skin. There is a dressing over the nephrotomy tube and the area appears clean with no drainage. Extremities: There is no significant lower extremity edema bilaterally. The patient is status post multiple toe amputations. There is onychomycosis of the remaining toes. There is a wound on the right thigh from his Giraldo catheter dressing and then there is a stage I sacral decubitus. LABORATORY DATA: Pending from the outside facility. His CBC this morning: WBC was 8.4. Hemoglobin was 8.6, platelets 116. Chemistry: Sodium 138, potassium 4.8, chloride 110, bicarb 23. BUN 28. Creatinine is 1.2. AST 77, ALT 126, alk phos 470. T bili 0.9. Albumin is 1.3. ABG on nonrebreather: pH of 7.47, pCO2 of 26.9, pO2 of 52.3. Repeat ABG at the outside hospital on the vent with pH of 7.33, pCO2 of 38.2, pO2 of 114. Micro from outside hospital: Respiratory panel x2 was negative including negative for COVID-19. Nephrostomy urine sample positive for Enterococcus avium, sensitive to ciprofloxacin, Levaquin and penicillin. The urine specimen from the suprapubic catheter was positive for Enterococcus avium and Stenotrophomonas which was also pansensitive. IMAGING: CT angio performed 03/10/20 at outside hospital showed no evidence of PE. There was an initial CT on admission on 03/05/20 which showed similar findings in the lung of areas of bilateral interstitial septal thickening as well as some areas of reticulation peripherally and possible worsening numerous cystic changes throughout the lung. There was also ground-glass opacity noted as well bilaterally. This reportedly new compared to CT from 01/28/20 and suggestive of interval development of a bilateral fibrocystic interstitial disease. On a prior CT in August he had some emphysematous changes and blebs which may appear more cystic with the superimposed GGO however there is also possibly more of these blebs/cysts also. There are some areas of consolidation towards the lower lobes bilaterally peripherally, more on the right lower lobe. There is no significant mediastinal adenopathy noted. There is a large lobulated right adrenal mass measuring approximately [address] of abdomen and pelvis from 03/05 showed no change in the [id number] endograft for the infrarenal abdominal aortic aneurysm. There is a percutaneous right-sided nephrostomy tube which is unchanged. There is a nodular, thick-walled urinary bladder with a suprapubic Giraldo catheter, unchanged. There are new, patchy lung opacities found. There is a lobulated right adrenal mass. ASSESSMENT AND PLAN: Mr. Yanez is a 80-year-old male with a past medical history of metastatic urothelial carcinoma previously pembrolizumab complicated with immune hepatitis on high doses of steroids, history of recurrent UTI in the setting of bladder outlet obstruction syndrome with suprapubic catheter placement as well as a history of right-sided nephrostomy tube, CKD, hypertension, hyperlipidemia, history of CVA and CAD who presented with complaints of weakness and shortness of breath. The patient was septic with leukocytosis as well as mild lactic acidosis on admission. He was treated for UTI with Zosyn initially and then Levaquin. His urine samples had grown Enterococcus avium as well as Stenotrophomonas. He also had a new acute hypoxemic respiratory failure on admission requiring initially nasal cannula oxygen supplementation. His CT showed findings that were new compared to January of a interstitial cystic lung disease. The patient was noted to have worsening hypoxia and respiratory distress and was intubated at the outside hospital and placed on mechanical ventilation and then transferred to [facility] for further management. Acute hypoxemic respiratory failure on mechanical ventilation. The patient's initial CT and repeat CT showed similar lung findings with interstitial cystic lung disease which was new compared to January reportedly. He has been off of the pembrolizumab since November as per oncology and so this is unlikely to be a cause for his interstitial lung disease. With the new cystic findings and as patient was on high steroids and is also immunocompromised with his malignancy, I suspect PCP pneumonia for his cause of acute hypoxemic respiratory failure. Other possible cystic lung diseases are less likely although with his malignancy, LIP is possible. Some of the possible cystic changes may be his prior emphysematous changes appearing more cyst like now with superimposed GGO. Given the acuity of the symptoms, however, and with the steroid history and with GGO, PCP is still favored. Pneumonia is also possible although the patient has been on broad spectrum antibiotics with Zosyn and his leukocytosis did improve. - We will start patient on empiric treatment with Bactrim 15-20 mg per kilogram daily in divided doses with adjustments based on renal function. - We will increase steroids to prednisone 40 mg b.i.d. for five days and then continue with a taper for a 21 day course for severe PCP - We will continue patient on mechanical ventilation. He is on volume control currently with settings of 420/14/50 and 5. We will continue weaning down at 5 to as tolerated to maintain an O2 sat above 90%. - Pulmonary edema is possible given the ground-glass opacities and some of the interlobular septal thickening. His BNP, however, was not significantly elevated and his echocardiogram done during his admission at [facility] had shown normal EF with only mild to moderate aortic insufficiency with normal RV systolic pressure at 22 mmHg. The patient clinically also does not appear to be fluid overloaded on exam. - We will check beta D glucan for possible PCP pneumonia. We will also check sputum with cytology with GMS stain. If we are unable to get a good sputum sample, we may need bronchoscopy with BAL. - Continue with ventilatory bundle with head of bed elevation and chlorhexidine mouthwash. - Continue with daily chest x-rays and ABGs while intubated. - We will continue with propofol for sedation and target a Artemio of 2-3 with Versed p.r.n. for agitation. History of enterococcal UTI. We will continue with Zosyn for his complicated UTI given the presence of a chronic suprapubic catheter. The Zosyn will also cover broadly for pneumonia as well. We will check a MRSA screen to determine starting vancomycin although he will also be on Bactrim which should cover for MRSA. - The patient's right-sided nephrostomy tube appeared to not have been sutured in. We will place sutures to resecure to his nephrostomy tube. He does follow up with Dr. Cavazos as an outpatient. - The patient has a history of metastatic urothelial carcinoma, had been on Pembrolizumab which was discontinued due to immune hepatitis. He is following with oncology here and would need to continue to discuss with the patient's family about further goals of care given his prognosis. - hx of anemia and intermittent blood in urine. Monitor H/H and transfuse as needed History of CKD. Renal function appears currently at baseline. - We will continue with gentle IV fluids with half NS at 75 mL for one liter and then we will continue with fluid boluses as needed. We will check a lactic acid as well as monitoring his electrolytes and renal function and replete as needed. - The patient has an OG tube in place. We will start tube feeds and increase as needed with close monitoring of residuals. He does appear to be hypoalbuminemic and likely has a poor nutritional status at baseline. Transaminitis thought to be secondary to immune hepatitis. He has been on prednisone chronically as an outpatient. The AST/ALT appears to have improved from his initial diagnosis. He will be getting steroids for his severe PCP pneumonia. DVT prophylaxis: Heparin. GI prophylaxis: Pantoprazole. Code Status: FULL CODE. Total critical care time not including procedures approximately one hour and 50 minutes. MTDD
[2020-03-10] MEDS ORDERED: CHLORHEXIDINE GLUCONATE 0.12 % 15ML UDC (PERIDEX ORAL RINSE) MT SCH (21:00)
[2020-03-10] MEDS: TRIMETHOPRIM/SULFAMETHOXAZOLE 250 MG in D5W 500 ML IV SCH (21:54)
[2020-03-10] MEDS: HEPARIN SOD (PORCINE) 5000UNITS/ML 1ML VIAL/SYRINGE SC SCH (21:55)
[2020-03-11] VITALS (33 sets, daily range): BP systolic 95–169; BP diastolic 50–74
[2020-03-11] MEDS: TRIMETHOPRIM/SULFAMETHOXAZOLE 250 MG in D5W 500 ML IV SCH ×4 (03:52→21:27)
[2020-03-11 05:06] LABS: HEMATOCRIT 23.6 % (42.0-52.0); HEMOGLOBIN 7.5 g/dl (13.5-17.5); MEAN CORPUSCULAR HEMOGLOBIN 30.4 pg (27.0-33.0); MEAN CORPUSCULAR HGB CONC 31.8 g/dl (32.0-36.5); MEAN CORPUSCULAR VOLUME 95.5 fl (80.0-96.0); PLATELET COUNT, AUTOMATED 111 10^3/uL (150-450); RED BLOOD COUNT 2.47 10^6/uL (4.30-6.10)
[2020-03-11 05:29] LABS: ABG BASE EXCESS -5.7 (-2.0-2.0); ABG HCO3 18.5 MEQ/L (22.0-26.0); ABG PARTIAL PRESSURE CO2 30.9 mmHg (35.0-45.0); ABG PARTIAL PRESSURE O2 81.8 mmHg (75.0-100.0); ABG STANDARD HCO3 19.7 MEQ/L (22.0-26.0); ABG TOTAL CO2 19.4 MEQ/L (23.0-31.0); ABG pH (ARTERIAL) 7.394 UNITS (7.350-7.450)
[2020-03-11 05:40] LABS: ALBUMIN 1.1 GM/DL (3.2-5.2); ALT/SGPT 100 U/L (12-78); BILIRUBIN,TOTAL 0.6 MG/DL (0.2-1.0); BLOOD UREA NITROGEN 30 MG/DL (7-18); CALCIUM LEVEL 8.6 MG/DL (8.8-10.2); CARBON DIOXIDE LEVEL 21 MEQ/L (21-32); CHLORIDE LEVEL 105 MEQ/L (98-107); CHOLESTEROL LEVEL 109 MG/DL (< 200); CPK CREATINE PHOSPHOKINASE 34 U/L (39-308); CREATININE FOR GFR 1.04 MG/DL (0.70-1.30); GLOMERULAR FILTRATION RATE > 60.0 (>42); GLUCOSE, FASTING 275 MG/DL (70-100); LDH LACTATE DEHYDROGENASE 355 U/L (87-241); PHOSPHORUS LEVEL 2.5 MG/DL (2.5-4.9); POTASSIUM SERUM 4.2 MEQ/L (3.5-5.1); SODIUM LEVEL 134 MEQ/L (136-145); TOTAL PROTEIN 4.3 GM/DL (6.4-8.2); TRIGLYCERIDES LEVEL 174 MG/DL (<150)
[2020-03-11] MEDS: HEPARIN SOD (PORCINE) 5000UNITS/ML 1ML VIAL/SYRINGE SC SCH ×3 (06:00→21:28)
[2020-03-11] MEDS: propofoL 1,000 MG in IV 1 EA IV SCH (06:00)
[2020-03-11] MEDS: PIPERACILLIN/TAZOBACTAM SOD 3.375 GM in D5W MINI-BAG PLUS 50 ML IV SCH ×3 (06:00→17:59)
[2020-03-11] MEDS: NS 0.45% 1,000 ML IV SCH (06:33)
--- NOTE | 2020-03-11 07:55 | REP ---
INDICATION: Hypoxia/Intubation. COMPARISON: Portable chest dated 03/10/2020 at 3:49 p.m.. TECHNIQUE: Single AP portable view with the patient semi upright. FINDINGS: Diffuse interstitial pattern is again identified, not significantly changed. No focal infiltrate is identified. No pleural effusion is identified. The patient is rotated. There is a large skin fold superimposed over the right hemithorax has notable change. The cardiac size is normal. The endotracheal tube and nasogastric tube remain in satisfactory positions, unchanged. IMPRESSION: Persisting diffuse bilateral interstitial pattern, unchanged. <Electronically signed by Sahwn Orourke > 03/11/20 [id number]
[2020-03-11] MEDS: PANTOPRAZOLE 40MG VIAL (C9113 PER 1) IV SCH (10:30)
[2020-03-11 11:59] LABS: ABG BASE EXCESS -4.2 (-2.0-2.0); ABG HCO3 19.1 MEQ/L (22.0-26.0); ABG O2 SATURATION 86.4 % (95.0-99.0); ABG PARTIAL PRESSURE CO2 26.9 mmHg (35.0-45.0); ABG STANDARD HCO3 20.8 MEQ/L (22.0-26.0); ABG TOTAL CO2 19.9 MEQ/L (23.0-31.0); ABG pH (ARTERIAL) 7.469 UNITS (7.350-7.450)
[2020-03-11 12:04] LABS: ABG PARTIAL PRESSURE O2 49.2 mmHg (75.0-100.0)
[2020-03-11] MEDS: methylPREDNISolone 125MG 2ML VIAL IV SCH (12:32)
--- NOTE | 2020-03-11 12:46 | CCN ---
CRITICAL CARE NOTE DATE: 03/11/2020 ATTENDING: Andreia Corado MD, of Pulmonary Critical Care Medicine. SUBJECTIVE: Mr. Yanez was seen and examined this morning. He has remained vitally stable overnight. There have been no adverse events reported. The patient has had decreased urinary output from his suprapubic catheter. It appears this morning the patient had passed two large clots out of the catheter followed by approximately 300 to 400 mL of urine. Currently the patient's urine does appear clear with some pieces of clot in there. The patient, himself, had a sedation vacation today. He appears to have good strength. He is able to be turned down to an FiO2 of 35%. Patient was successfully extubated today and currently remains on high flow nasal cannula. OBJECTIVE: Vital signs: Pulse 72, respiratory rate 15, blood pressure 116/59, pulse oximetry 95% on high flow nasal cannula with an FiO2 of 65%. General: Patient is awake, alert, and oriented. He does not appear in any acute distress. He is weak/frail appearing. HEENT: Atraumatic, normocephalic. Eyes not icteric. Trachea is midline. Mucous membranes are pink and moist. Cardiovascular: There is a normal S1 and S2. There is regular rate and rhythm. There are no click, rubs, or murmurs. Pulmonary: Patient has decreased breath sounds throughout. There is some mild rhonchi. There are no wheezes or rales. Symmetric chest expansion. There is no accessory muscle use. Abdomen: Patient's abdomen is soft. It is nondistended, nontender. He has a suprapubic catheter in place which is draining some clear urine currently. There are some small clots scattered within santos bag. He has a right side nephrostomy tube in place as well which is draining appropriately. There are normoactive bowel sounds. Extremities: Patient has full and equal pulses bilateral upper and lower extremities. There is no edema bilaterally. He has amputation of multiple toes. There is onychomycosis of the remaining toes. Additionally, he has a wound on the right thigh, currently bandaged. It does not appear to be purulent. He also has a stage 1 sacral decubitus ulcer present that is currently bandaged. LABORATORY DATA: Hematology: White blood cells 7.0, hemoglobin 7.5, hematocrit 23.6, and platelet count 111. Chemistries: Sodium 134, potassium 4.2, chloride 105, CO2 21, BUN 30, creatinine 1.04, fasting glucose 275, calcium 8.6, phosphorus 2.5, total bilirubin 0.6, AST 56, ALT 100, alkaline phosphatase 434, lactate dehydrogenase 355, total creatinine kinase 34, total protein 4.3, albumin 1.1. Triglycerides 174, cholesterol 109. Procalcitonin 0.24. ABG: pH 7.39, pCO2 30.9, pO2 81.8. MRSA screen negative. Beta 1, 3D glucan currently pending. Microbiology: Sputum culture and gram stain pending with GMS PCP staining pending as well. IMAGING: Chest x-ray obtained this morning demonstrated diffuse bilateral interstitial markings as well as endotracheal tube in position. ASSESSMENT AND PLAN: Mr. Yanez is a 80-year-old male with a past medical history significant for metastatic urothelial carcinoma who was previously on pembrolizumab which was complicated by immune hepatitis and subsequently started on high doses of steroids. He has a history of a recurrent UTI in the setting of a bladder outlet obstruction syndrome with suprapubic catheter placement as well as chronic right side hydronephrosis status post right-sided nephrostomy tube placement, CKD, hypertension, hyperlipidemia, and a history of CAD and PVD who presented originally to [facility] complaining of weakness and shortness of breath. The patient was found to be septic with a mild lactic acidosis and was subsequently intubated due to acute respiratory failure. He had been started on Zosyn for an outpatient UTI and then subsequently changed to Levaquin. His urine had grown enterococcus AVM and Stenotrophomonas. On his CT imaging, he had what appears to be a possible interstitial cystic lung disease with worsening hypoxia and respiratory distress. He was transferred to [facility] where he has received further evaluation and management. 1. Acute hypoxemic respiratory failure: Patient had developed acute hypoxemic respiratory failure yesterday apparently at [facility]. It appeared that he had not been trialed on Bi-PAP. On presentation to [facility], he was intubated with mechanical ventilation. He had remained on FiO2 of 50%. He has shown improvements overnight. This morning his FiO2 was turned down to 35. On sedation vacation, patient had good strength and RSBI. He was subsequently successfully extubated and transitioned over to humidified O2 with saturations greater than 90%. The cause of his acute hypoxemic respiratory failure appears to be secondary to pneumonic process. Given his immunocompromised condition, it is likely secondary to a possible PCP pneumonia. Review of his CT scans from January did not demonstrate the extent of cystic and GGO that are currently seen on his chest CT, although his chest CT in August did show some blebs and emphysema in the upper lobes. However, he does have new ground glass opacities bilaterally which could represent a possible PCP pneumonia picture, especially given the chronic steroids that he has been on. Yesterday sputum cultures and gram stains were obtained as well as cytology for GMS staining for PCP. The patient has been continued empirically on Zosyn for enterococcus complicated UTI as well as Bactrim weight based at 15-20 mg/kg divided into q.6 hour doses and adjustments based on renal function. Additionally we ordered a [id number]. However, predict that this is likely a PCP pneumonia picture. However, clinically the patient does appear to be improving. Given the possibility of PCP, have started the patient on 40 mg of prednisone b.i.d. Anticipate to start this for 5 days and then taper down for a 21 day course. 2. Anemia secondary to acute blood loss: Patient has a hemoglobin of 7.5 today. He was noted to pass two large clots from his suprapubic catheter yesterday. Apparently this was replaced at the outside hospital. Hemoglobin this morning is 7.5. Will transfuse a unit. Patient has consented for this. Additionally, I have contact patient's urologist, Dr. Cavazos, and discussed the case with him. At this point in time, the patient's urine is clear. He does not believe there is any need for continuous bladder irrigation at this time. Will continue to monitor. 3. History of enterococcus UTI: Patient has a history of enterococcal UTI. He apparently presented originally outpatient and was given Zosyn for this and then subsequently Levaquin. Will continue on Zosyn for this point in time. 4. Metastatic bladder cancer with right side hydronephrosis: Patient has metastatic bladder cancer. His goals of care have been discussed with the patient's health care proxy, his daughter, yesterday who once again had stated that she would like him to be full code. Additionally, he has chronic right-sided hydronephrosis. He had a nephrostomy tube placed yesterday. The nephrostomy tube was not secured in when he arrived from the outside Hospital. The tube had been falling out, and it was sutured back in place in the ICU. However, will likely need to be reevaluated once patient's clinical status improves. His nephrostomy tube is having good output. Regarding his goals of care, this should be discussed with the patient as he appears to have a fairly metastatic disease without much treatment options as he had failed pembrolizumab recently due to immune mediated hepatitis. 5. Transaminitis: Patient has transaminitis. This appears to be a chronic issue. It is felt to be secondary to his Keytruda induced immune mediated hepatitis. Will continue to monitor. Patient is currently off Keytruda. 6. DVT prophylaxis: Patient is currently receiving heparin q.8 hours. Will likely need to adjust this due to his ongoing hematuria. 7. GI prophylaxis: Patient is currently on Protonix 40 mg daily. 8. Nutrition: Patient is currently n.p.o. He is status post extubation. Will likely resume diet of clear liquids in a few hours status post extubation. CRITICAL CARE TIME not including procedures: One hour. I, Andreia Corado, conducted an independent examination of the patient and agree with the above plan as detailed by the resident and discussed during rounds. JERRI
[2020-03-11] MEDS: ACETAMINOPHEN TAB 650MG DOSE (2X325MG) PO PRN (17:59)
[2020-03-12] VITALS (23 sets, daily range): BP systolic 116–154; BP diastolic 56–71
[2020-03-12] MEDS: PIPERACILLIN/TAZOBACTAM SOD 3.375 GM in D5W MINI-BAG PLUS 50 ML IV SCH ×5 (00:23→23:58)
[2020-03-12] MEDS: TRIMETHOPRIM/SULFAMETHOXAZOLE 250 MG in D5W 500 ML IV SCH ×4 (03:53→21:28)
[2020-03-12 05:13] LABS: WHITE BLOOD COUNT 9.1 10^3/uL (4.0-10.0)
[2020-03-12 05:14] LABS: HEMOGLOBIN 9.2 g/dl (13.5-17.5); MEAN CORPUSCULAR HEMOGLOBIN 31.2 pg (27.0-33.0); MEAN CORPUSCULAR HGB CONC 34.1 g/dl (32.0-36.5); MEAN CORPUSCULAR VOLUME 91.5 fl (80.0-96.0); PLATELET COUNT, AUTOMATED 109 10^3/uL (150-450); RED BLOOD COUNT 2.95 10^6/uL (4.30-6.10)
[2020-03-12 05:36] LABS: ALBUMIN 1.2 GM/DL (3.2-5.2); ALT/SGPT 87 U/L (12-78); BILIRUBIN,TOTAL 0.6 MG/DL (0.2-1.0); BLOOD UREA NITROGEN 24 MG/DL (7-18); CALCIUM LEVEL 9.4 MG/DL (8.8-10.2); CARBON DIOXIDE LEVEL 21 MEQ/L (21-32); CHLORIDE LEVEL 104 MEQ/L (98-107); CHOLESTEROL LEVEL 107 MG/DL (< 200); CPK CREATINE PHOSPHOKINASE 35 U/L (39-308); CREATININE FOR GFR 1.11 MG/DL (0.70-1.30); GLOMERULAR FILTRATION RATE > 60.0 (>42); GLUCOSE, FASTING 141 MG/DL (70-100); LDH LACTATE DEHYDROGENASE 386 U/L (87-241); NT-PRO BNP 3917 PG/ML (<450); PHOSPHORUS LEVEL 2.1 MG/DL (2.5-4.9); POTASSIUM SERUM 4.1 MEQ/L (3.5-5.1); SODIUM LEVEL 132 MEQ/L (136-145); TOTAL PROTEIN 5.1 GM/DL (6.4-8.2); TRIGLYCERIDES LEVEL 108 MG/DL (<150)
[2020-03-12] MEDS: HEPARIN SOD (PORCINE) 5000UNITS/ML 1ML VIAL/SYRINGE SC SCH ×3 (05:56→21:28)
[2020-03-12] MEDS ORDERED: FUROSEMIDE 40MG/4ML VIAL (J1940) IV ONE (07:30)
[2020-03-12] MEDS: ACETAMINOPHEN TAB 650MG DOSE (2X325MG) PO PRN ×2 (07:37→15:54)
[2020-03-12] MEDS: methylPREDNISolone 125MG 2ML VIAL IV SCH (08:35)
[2020-03-12] MEDS: PANTOPRAZOLE 40MG VIAL (C9113 PER 1) IV SCH (08:35)
--- NOTE | 2020-03-12 10:24 | CCN ---
CRITICAL CARE NOTE DATE: 03/12/2020 SUBJECTIVE: Mr. Yanez was seen and examined this morning. There have been no adverse events reported overnight. He continues to require Vapotherm with FiO2 ranging anywhere from 60% to 90%. The patient himself currently has no complaints. He states he feels somewhat short of breath, although not worsening. He has remained afebrile and otherwise vitally stable. He did have good urine output. It appears that his Giraldo bag no longer has any clots present. OBJECTIVE: VITAL SIGNS: Temperature 98.5 with T-max 98.8, pulse 70, respiratory rate 20, blood pressure 137/65, pulse oximetry 90% on Vapotherm with an FiO2 of 65 and a flow rate of 35. GENERAL: The patient is awake, alert, and oriented. He does not appear in any acute distress, although he does appear critically ill and frail. HEENT: Atraumatic, normocephalic. Eyes nonicteric. Trachea is midline. Mucous membranes are pink and moist. He has high-flow nasal cannula in place. CARDIOVASCULAR: Normal S1, S2. Regular rate and rhythm with no clicks, rubs, or murmurs. PULMONARY: The patient has somewhat decreased breath sounds bilaterally. There are some mild scattered rhonchi and some fine crackles in the bases. Symmetric chest expansion. There is no wheezing. ABDOMEN: The patient's abdomen is soft, nondistended, and nontender. There is a suprapubic catheter in place with clear urine draining into the Giraldo bag. Additionally, he has a right-sided nephrostomy tube sutured in place with clear urine in the nephrostomy bag as well. He has an area of ulceration on his right thigh that appears to be healing. He also has a stable decubitus ulcer stage I. EXTREMITIES: The patient's extremities are void of any edema. He has full and equal pulses bilaterally. He has amputation of multiple toes, as well as onychomycosis of remaining toes. NEUROLOGIC: There are no focal neurological deficits. PSYCHIATRIC: Mood and affect appear appropriate. LABORATORY DATA: Hematology: White blood cell 9.1, hemoglobin 9.2, hematocrit 27, platelet count 109,000. Chemistries: Sodium 132, potassium 4.1, chloride 104, CO2 of 21, BUN 24, creatinine 1.1, fasting glucose 141, calcium 9.4, phosphorus 2.1, total bilirubin 0.6, AST 53, ALT 87, alkaline phosphatase 419, lactate dehydrogenase 386, total CK 35, total protein 5.1, albumin 1.2. BNP 3917. Pathology: GMS staining for Pneumocystis is negative. ASSESSMENT AND PLAN: Mr. Downs is a 80-year-old male with a past medical history significant for metastatic urothelial carcinoma, who was recently on pembrolizumab and developed autoimmune hepatitis and was subsequently started on high-dose steroids. He has a history of recurrent urinary tract infections in the setting of a bladder outlet obstruction with suprapubic catheter placed and a chronic right-sided hydronephrosis status post right-sided nephrostomy tube placement, chronic kidney disease, hypertension, hyperlipidemia, history of coronary artery disease (CAD), and peripheral vascular disease (PVD), who originally presented to [facility] complaining of weakness and shortness of breath, and was subsequently found to be septic with metabolic acidosis and subsequently intubated for acute respiratory failure. The patient had been started on Zosyn. His urine cultures were positive for Enterococcus avium and Stenotrophomonas. On CT imaging at [facility], he had what appeared to be an interstitial cystic lung disease in the setting of worsening hypoxia and respiratory distress. He was transferred to the [facility] where he had received further evaluation and management. 1. Acute respiratory failure: The patient originally presented with acute hypoxemic respiratory failure and intubated and placed on mechanical ventilation. He has been extubated yesterday. He has done well; however, has required Vapotherm. He is fairly hypoxic requiring FiO2 of up to 80% to 90% at times. Overall, the patient states that he feels well. His GMS staining was negative for pneumocystis (PCP); however, this was taken from the sputum culture. Unfortunately, a bronchoscopy was not performed as the patient was extubated fairly soon. Given his immunocompromised condition, it is once again likely that his cystic pneumonia is secondary to pneumocystis pneumonia (PCP). This is consistent with his CT scans from previously that show that he does not have any cystic lung disease, although currently he does have that. He has been started on both Zosyn and Bactrim weight-based 15 to 20/kg divided into every six hour doses and with adjustments based on renal function for both empiric coverage for pneumonia, as well as coverage for possible PCP pneumonia. [id number] is currently pending. The patient has been receiving prednisone; however, he was able to swallow yesterday and this was transitioned to Solu-Medrol. Ideally, the patient should be continued on steroids for five days and then followed by a 21-day taper course for management of his likely PCP pneumonia. Other differentials include other forms of interstitial lung disease such lymphocytic interstitial pneumonia. Overall, the patient is improving although slowly. Will continue on high-flow nasal cannula for the current time. 2. Anemia secondary to acute blood loss: The patient was noted to be anemic yesterday with hemoglobin of 7.5. He was transferred a unit and hemoglobin today is 9.0. The likely cause of bleeding is through his bladder. He has a history of intermittent hematuria. He was noted to have two large clots removed from his Giraldo catheter yesterday. At this time, the patient's urine is clear. There are some small amounts of clot in the Giraldo bag; however, overall the patient does not appear to be currently bleeding. 3. History of Enterococcus urinary tract infection (UTI): He has a history of recurrent UTI. He is currently on Zosyn and will continue. 4. Metastatic bladder cancer with right-sided hydronephrosis: The patient has metastatic bladder cancer. His goals of care have been discussed with him again today. He would like to remain FULL CODE. His emt intermediate prognosis overall is guarded as he has metastatic urothelial carcinoma, and he has failed multiple therapies with most recently the immunologic therapies. 5. 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 His liver enzymes appear to be trending down with steroids and will continue to monitor. 6. Hypophosphatemia: The patient had a mild decrease in phosphate likely due to malnutrition. We will add K-Phos today. 7. Gastrointestinal (GI) prophylaxis: The patient is currently on Protonix 40 mg daily. 8. Deep vein thrombosis (DVT) prophylaxis: The patient is currently on heparin every eight hours and will continue. 9. Nutrition: The patient was previously n.p.o. We will start him on a diet with advance as tolerated. We will start with clears and go from there. CRITICAL CARE TIME: 45 minutes. DISPOSITION: Mr. Yanez has shown some clinical improvement. He will remain in the intensive care unit (ICU) at this time as he does remain critically ill. I, Andreia Corado, have conducted and independent history and physical of the patient and agree with the above plan as detailed by the resident and discussed during rounds. JERRI
[2020-03-12] MEDS ORDERED: POTASSIUM PHOSPHATE INJ 15 MMOL in D5W 250 ML IV ONE (12:00)
[2020-03-12 13:54] LABS: CALCIUM LEVEL 9.7 MG/DL (8.8-10.2); CREATININE FOR GFR 1.25 MG/DL (0.70-1.30); GLOMERULAR FILTRATION RATE 59.3 (>42); POTASSIUM SERUM 4.2 MEQ/L (3.5-5.1)
[2020-03-13] VITALS (51 sets, daily range): BP systolic 92–184; BP diastolic 49–81; O2SAT 93
[2020-03-13] MEDS: TRIMETHOPRIM/SULFAMETHOXAZOLE 250 MG in D5W 500 ML IV SCH ×4 (03:06→20:32)
[2020-03-13 04:43] LABS: HEMOGLOBIN 9.8 g/dl (13.5-17.5); MEAN CORPUSCULAR HEMOGLOBIN 30.4 pg (27.0-33.0); MEAN CORPUSCULAR HGB CONC 33.8 g/dl (32.0-36.5); MEAN CORPUSCULAR VOLUME 90.1 fl (80.0-96.0); PLATELET COUNT, AUTOMATED 127 10^3/uL (150-450); RED BLOOD COUNT 3.22 10^6/uL (4.30-6.10); WHITE BLOOD COUNT 9.2 10^3/uL (4.0-10.0)
[2020-03-13] MEDS: ACETAMINOPHEN TAB 650MG DOSE (2X325MG) PO PRN (05:14)
[2020-03-13 05:20] LABS: ALBUMIN 1.3 GM/DL (3.2-5.2); BILIRUBIN,TOTAL 0.5 MG/DL (0.2-1.0); CALCIUM LEVEL 8.9 MG/DL (8.8-10.2); CREATININE FOR GFR 1.27 MG/DL (0.70-1.30); GLOMERULAR FILTRATION RATE 58.2 (>42); PHOSPHORUS LEVEL 2.2 MG/DL (2.5-4.9); POTASSIUM SERUM 4.4 MEQ/L (3.5-5.1); TOTAL PROTEIN 5.5 GM/DL (6.4-8.2)
[2020-03-13 06:01] LABS: INR 1.16; PROTHROMBIN TIME 15.1 SECONDS (12.5-14.3)
[2020-03-13 06:02] LABS: PARTIAL THROMBOPLASTIN TIME 67.8 SECONDS (24.2-38.5)
[2020-03-13] MEDS ORDERED: MIDAZOLAM INJ 2MG/2ML VIAL (J2250 PER 1MG) As Ordered ONE (06:27)
[2020-03-13] MEDS ORDERED: PROPOFOL 1,000 MG/100 ML VIAL As Ordered ONE (06:32)
--- NOTE | 2020-03-13 07:53 | REP ---
INDICATION: intubation. COMPARISON: 03/11/2020.. TECHNIQUE: Semi-erect AP portable chest x-ray. FINDINGS: Endotracheal and nasogastric tubes remain in place in good position unchanged. A left IJ intravenous line is seen with its tip just to the right of midline. Monitoring electrodes are noted. Diffuse interstitial lung disease persists throughout the lung lopez. There is slight blunting of the right lateral pleural angle. Findings are unchanged. Heart size is unchanged. IMPRESSION: Diffuse extensive interstitial lung disease persists. Mild cardiomegaly. <Electronically signed by Cale Acharya > 03/13/20 [id number]
[2020-03-13] MEDS: PIPERACILLIN/TAZOBACTAM SOD 3.375 GM in D5W MINI-BAG PLUS 50 ML IV SCH ×3 (08:01→17:59)
[2020-03-13] MEDS: methylPREDNISolone 125MG 2ML VIAL IV SCH (09:10)
[2020-03-13] MEDS: PANTOPRAZOLE 40MG VIAL (C9113 PER 1) IV SCH (09:10)
--- NOTE | 2020-03-13 09:38 | RO ---
OPERATIVE NOTE DATE OF OPERATION: 03/13/2020 PROCEDURE: Central line. INDICATION: Vascular access. PREPROCEDURE DIAGNOSIS: Acute bleed. PREPROCEDURE DIAGNOSIS: Acute bleed. ATTENDING PHYSICIAN: Andreia Corado MD CONSENT: Due to the emergent nature of the procedure, the procedure was performed emergently and the permission was implied. PROCEDURE SUMMARY: A central line insertion practices form was completed by an independent observer. A time-out was performed. Full sterile technique was maintained throughout the procedure, including surgical cap, mask, protective eyewear, full gown, and sterile gloves. The patient was placed in Trendelenburg position. The left neck region was prepped using chlorhexidine scrub and draped in sterile fashion using a full drape and a sterile probe cover employed. The left internal jugular vein was identified using ultrasound. Anesthesia was achieved over the vein using 1% Lidocaine. Using real-time [id number] guidance, the introducer needle was inserted into the internal jugular vein under direct ultrasound visualization. Venous blood was withdrawn. The syringe was removed and a guidewire was advanced into the introducer needle. The introducer needle was removed over the guidewire. A small incision was made at the skin surface with a scalpel, and the dilator was exchanged over the guidewire. After appropriate dilation was obtained, the dilator was exchanged over the wire for a triple lumen central venous catheter. The wire was removed and a catheter was sutured in place at 19 cm. A sterile chlorhexidine-impregnated dressing was placed over the catheter at the insertion site. The patient tolerated the procedure without any hemodynamic compromise. At the time of procedure completion, all ports were aspirated and flushed properly. Postprocedure chest x-ray shows the left internal jugular triple lumen catheter is crossing over midline with the tip at the SVC. Estimated blood loss was less than 2 mL. MTDD
--- NOTE | 2020-03-13 09:38 | RO ---
OPERATIVE NOTE DATE OF OPERATION: 03/13/2020 PROCEDURE: Endotracheal intubation. INDICATION: Hypoxemic respiratory failure. PREPROCEDURE DIAGNOSIS: Hypoxemic respiratory failure and bleed. POSTPROCEDURE DIAGNOSIS: Hypoxemic respiratory failure and bleed. ATTENDING PHYSICIAN: Dr. Corado. CONSENT: Due to the emergent nature of the procedure, consent was implied. Patient did verbally agree to intubation. He had stated that he was a DNR, but he would like a trial of intubation. PROCEDURE SUMMARY: A time out was performed. The patient was placed on a cardiac monitoring including continuous pulse oximetry. Rapid sequence intubation was conducted. The patient received 20 mg of etomidate for induction as well as 2 mg of Versed and 60 mg of succinylcholine for adequate paralysis. Using a size 4 GlideScope and a size 8 endotracheal tube with stylette, the patient was intubated on the first pass attempt. The stylette was removed, and the cuff balloon was inflated. Appropriate endotracheal tube position was confirmed by direct visualization of vocal cord passage, fogging of the tube, CO2 colorimetric indicator, and symmetric breath sounds. The tube was secured at 23 cm at the bottom lip. Post intubation chest x-ray showed ET tube in satisfactory position. [facility]
--- NOTE | 2020-03-13 10:08 | CCN ---
CRITICAL CARE NOTE DATE: 03/13/2020 SUBJECTIVE: Mr. Yanez was seen and examined this morning. It appears overnight, the patient was noted to have passed a large amount of blood into both his nephrostomy bag and through his suprapubic catheter. Subsequently, the patient became fairly tachycardia and developed shortness of breath. The patient was seen at bedside and his goals of care were discussed with him. The patient stated that he would like to be DNR; however, stated that he is feeling short of breath and opted for elective intubation at that time. The patient was intubated using etomidate and succinylcholine and then continued with propofol for sedation. He did receive 2 mg of Versed as well. Given the patient's acute blood loss, he had a PTT of 67.8. He was ordered of FFP and a unit of packed red blood cells. Additionally, the patient's suprapubic catheter and nephrostomy tube were noted to be clotting off. The patient's urologist, Dr. Cavazos, was contacted in regards to this with recommendations for flushing the catheter. OBJECTIVE: VITAL SIGNS: Temperature 98.3, pulse 109, respiratory rate 23, blood pressure 115/60, pulse oximetry 95% on the ventilator with an FiO2 of 55. GENERAL: The patient is currently intubated with mechanical ventilation. He is sedated with propofol. He does appear critically ill. HEENT: Atraumatic, normocephalic. His eyes are nonicteric. Pupils are equal and reactive to light. He does have a left-sided internal jugular vein triple lumen in place. CARDIAC: Patient has a normal S1, S2. He has a tachycardic rate with a regular rhythm. There are no clicks, rubs, or murmurs auscultated. PULMONARY: The patient has some fine crackles in the bases. There is symmetric chest expansion with somewhat decreased breath sounds overall. There are no wheezes or rhonchi. ABDOMEN: The patient's abdomen is soft and nondistended. There is a suprapubic catheter in place. There is atul blood draining into the Giraldo bag. The Giraldo bag is clotted off. He has a right-sided nephrostomy tube in place, which once again is draining atul blood. The tubing in the nephrostomy bag has a large amount of clot in it as well. GENITOURINARY: Exam demonstrates some areas of open wounds with bleeding around the testicles. EXTREMITIES: The patient's extremities are void of any edema. He has amputations of multiple toes. The remaining toes have onychomycosis on them. There are full and equal pulses bilateral upper and lower extremities. NEUROLOGIC: There are no focal neurological deficits. The patient is currently sedated with propofol. LABORATORY DATA: Hematology: White blood cell 9.2, hemoglobin 9.8, hematocrit 29.0, platelet count 127,000. Chemistries: Sodium 131, potassium 4.4, chloride 101, CO2 of 21, BUN 26, creatinine 1.27, fasting glucose 113. Calcium 8.9, phosphorus 2.2, total bilirubin 0.5, AST 68, ALT 102, alkaline phosphatase 545, LDH of 455, total CK 42, total protein 5.5, albumin 1.3. Beta 1, 3D glucan currently pending. IMAGING: Chest x-ray obtained demonstrating no real interval change with his cystic lung disease. He does have an endotracheal tube in place, as well as a left-sided central venous triple lumen catheter in place as well. ASSESSMENT AND PLAN: Mr. Yanez is a 80-year-old male whose past medical history is significant for metastatic urothelial carcinoma recently on Keytruda and subsequently developed an autoimmune hepatitis started on high-dose steroids with history of recurrent urinary tract infections in the setting of bladder outlet obstruction with a suprapubic catheter in place and a chronic right-sided hydronephrosis status post right-sided nephrostomy tube; chronic kidney disease; hypertension; hyperlipidemia; history of coronary artery disease; and peripheral vascular disease, who had presented originally to [facility] complaining of weakness, shortness of breath, and found to be septic with metabolic acidosis and subsequently intubated for acute respiratory failure. The patient had been started on Zosyn. He had CT imaging at [facility], which demonstrated possible interstitial cystic lung disease in the setting of worsening hypoxia and respiratory distress. He was transferred to [facility] where he received further evaluation and management. The patient has been treated for likely pneumocystis pneumonia (PCP). Unfortunately overnight, he had developed some worsening hematuria and subsequently clinical deterioration required endotracheal intubation with mechanical ventilation. 1. Acute hypoxemic respiratory failure: The patient was previously extubated; however, overnight he was noted to have significant hematuria. He became tachycardic. It appears the patient himself had developed issues with his breathing. His chest x-ray did not demonstrate any worsening of his cystic lung disease; however, he was intubated using etomidate and succinylcholine and had received 2 of Versed currently sedated with propofol. Code status was discussed with the patient prior to intubation. The patient had made wishes to become DO NOT RESUSCITATE; however, he would like a TRIAL OF INTUBATION. He had stated he did not want a tracheostomy tube placed. This was discussed with the patient's health care proxy his daughter, Geno, who had acknowledged this and stated that she is okay with that if that is what he had wished for. At the time, he does remain intubated with mechanical ventilation. 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 2. 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 He has been on chronic steroids without receiving PCP prophylaxis. He was started on Bactrim empirically for this. Sputum culture was negative for GMS staining; however, may consider bronchoscopy for further evaluation, although the patient has already been started on antibiotics. The patient is currently on steroids. Will continue Solu-Medrol for five days and then begin a 21-day taper. 3. Acute blood loss anemia: Overnight, the patient was noted to have significant blood loss through both his suprapubic catheter and into his nephrostomy tube. His hemoglobin this morning before the blood was noted was not suggestive of anemia; however, likely his followup will be low. I have ordered fresh frozen plasma (FFP) and transfused one unit currently. We will continue to trend hemoglobin and hematocrit. I have contacted the patient's urologist. Dr. Cavazos, for recommendation. The currently issue is that he continues to bleed, which is likely secondary to his metastatic urothelial carcinoma. In addition, he is somewhat coagulopathic and we will try to reverse his coagulopathy. However, he has been clotting off the suprapubic catheter, as well as the right-sided nephrostomy tube. Dr. Cavazos's recommendations are to flush both the catheter and the nephrostomy tube to see if the clot can be pushed out. We were able to successfully do this at bedside. Currently both his nephrostomy and his suprapubic catheter are draining still with atul red blood. Additionally if the patient's nephrostomy tube does clot off and not able to be cleared, he will likely need exchange of that through interventional radiology. Urology is to see the patient this afternoon and their recommendations are appreciated. 4. History of Enterococcus urinary tract infection (UTI): The patient has a history of Enterococcus UTI. Currently, he is being covered with Zosyn and we will continue. 5. Transaminitis: The patient has a chronic transaminitis secondary to his drug-induced autoimmune hepatitis. His liver enzymes are fairly stable. We will continue to monitor. He does remain on steroids. 6. Electrolyte misbalance: The patient has a decreasing sodium. We will continue to monitor. Additionally, hypophosphatemia we will continue to monitor and replete as necessary. 7. Gastrointestinal (GI) prophylaxis: Currently on Protonix 40 mg daily. 8. Nutrition: The patient currently is intubated. Will likely need to start tube feeding. DISPOSITION: Mr. Yanez unfortunately had some clinical deterioration last night. He is currently intubated with mechanical ventilation. His code status was discussed with him prior to intubation and he has elected for DO NOT RESUSCITATE WITH TRIAL INTUBATION. He had stated that he does not want a tracheostomy tube place if it comes to this. This was discussed with the patient's health care proxy, his daughter, over the phone and she is currently in agreement with this. The patient at this time does remain critically ill. CRITICAL CARE TIME: One hour. I, Andreia Corado, have conducted and independent history and physical of the patient and agree with the above plan as detailed by the resident and discussed during rounds. JERRI
[2020-03-13] MEDS ORDERED: MIDAZOLAM INJ 2MG/2ML VIAL (J2250 PER 1MG) IV ONE (10:30)
[2020-03-13] MEDS ORDERED: SUCCINYLCHOLINE INJ 200 MG/10 ML VIAL (J0330) IV ONE (10:30)
[2020-03-13] MEDS ORDERED: ETOMIDATE INJ 20MG/10ML VIAL IV ONE (10:30)
[2020-03-13] MEDS: propofoL 1,000 MG in IV 1 EA IV SCH ×2 (10:56→11:05)
[2020-03-13] MEDS ORDERED: SUCCINYLCHOLINE 100 MG/5 ML SYRINGE (J0330) ONE (11:21)
[2020-03-13] MEDS ORDERED: ETOMIDATE INJ 20MG/10ML VIAL ONE (11:21)
[2020-03-13 14:04] LABS: HEMATOCRIT 27.5 % (42.0-52.0); HEMOGLOBIN 9.2 g/dl (13.5-17.5); MEAN CORPUSCULAR HEMOGLOBIN 29.8 pg (27.0-33.0); MEAN CORPUSCULAR HGB CONC 33.5 g/dl (32.0-36.5); PLATELET COUNT, AUTOMATED 138 10^3/uL (150-450); RED BLOOD COUNT 3.09 10^6/uL (4.30-6.10); WHITE BLOOD COUNT 13.4 10^3/uL (4.0-10.0)
[2020-03-13 14:12] LABS: INR 1.12; PROTHROMBIN TIME 14.7 SECONDS (12.5-14.3)
[2020-03-13 18:56] LABS: C REACTIVE PROTEIN QUANTITATIV 10.9 MG/DL (0.00-0.30)
--- NOTE | 2020-03-13 19:30 | SMCUROLCON ---
Urology Consultation General Date of Consultation 03/13/20 Reason For Consultation This patient is seen for Hypoxia. 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 Urology has been consulted as the patient has developed gross hematuria from his R neph tube and SP catheter since this morning. Due to the hematuria both tubes clotted off. After flushing the neph tube, it started draining, but continues to drain red urine. The SP catheter was did not irrigate well per nursing and has had minimal output. He was given 1u PRBC and 1u FFP for a PTT of 67. He has only received SQH since his arrival. He is not on any other blood thinners. 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 SUPRAPUBIC CATHETER PLACED ANEURYSM REPAIRED CYSTOSCOPY 03/14/2018 CYSTO, TURBT, STENT REMOVAL, CAUTERIZATION Medications Current Medications Current Medications Medications (Trade) Dose Ordered Sig/Cady Route PRN Reason Start Time Stop Time Status Last Admin Dose Admin Acetaminophen (Tylenol Tab) 650 mg Q4HP PRN PO PAIN OR FEVER 03/11/20 17:00 03/13/20 05:14 Albuterol Sulfate (Proventil Neb) 2.5 mg Q6HP PRN NEB SHORTNESS OF BREATH 03/10/20 16:00 Chlorhexidine Gluconate (Peridex Oral Rinse) SWAB/BRUSH ORAL CAVITY BID MT 03/13/20 21:00 Chlorhexidine Gluconate (Peridex Oral Rinse) SWAB/BRUSH ORAL CAVITY BID MT 03/10/20 21:00 03/11/20 09:27 DC 03/10/20 21:54 Heparin Sodium (Heparin (Flush)) 200 units ASDIRECTED PRN IV SEE LABEL COMMENTS 03/10/20 17:45 03/10/20 18:07 DC Heparin Sodium (Heparin (Flush)) 200 units PICC IV 03/10/20 18:00 03/10/20 18:07 DC Heparin Sodium (Porcine) (Heparin) 5,000 units Q8H SC 03/10/20 22:00 03/13/20 07:43 DC 03/12/20 21:28 Home Med (Med Rec Complete!) ASDIRECTED XX 03/10/20 17:15 03/10/20 17:28 DC Methylprednisolone (SOLUmedrol) 60 mg DAILY IV 03/11/20 09:00 03/13/20 09:10 Midazolam HCl (Versed) 2 mg Q15MP PRN IV AGITATION 03/10/20 17:00 03/11/20 09:26 DC 03/11/20 04:40 Pantoprazole Sodium (Protonix) 40 mg DAILY IV 03/10/20 09:00 03/13/20 09:10 Piperacillin Sod/ Tazobactam Sod 3.375 gm/Dextrose 50 ml @ 50 mls/hr Q6H IV 03/10/20 18:00 03/13/20 13:39 Prednisone (Deltasone) 40 mg BID NG 03/10/20 17:00 03/11/20 11:37 DC 03/10/20 17:10 Propofol 1000 mg/ IV Miscellaneous Supplies 100 ml @ 3.858 mls/ hr Q24H IV 03/13/20 10:22 03/13/20 11:05 Propofol 1000 mg/ IV Miscellaneous Supplies 100 ml @ 3.978 mls/ hr Q24H IV 03/10/20 17:00 03/11/20 09:26 DC 03/11/20 06:00 Sodium Chloride 1,000 ml @ 70 mls/hr [id number] IV 03/10/20 16:15 03/11/20 19:13 DC 03/10/20 17:04 Sodium Chloride (Saline Lock Flush) 10 ml ASDIRECTED PRN IV SEE LABEL COMMENTS 03/10/20 17:45 03/10/20 18:08 DC Sodium Chloride (Saline Lock Flush) 10 ml PICC IV 03/10/20 18:00 03/10/20 18:08 DC Trimethoprim/ Sulfamethoxazole 250 mg/Dextrose 515.625 ml @ 515.625 mls/hr Q6H IV 03/10/20 21:00 03/13/20 15:37 Allergies Allergies: Coded Allergies: No Known Allergies (Unverified , 03/22/19) Review of Systems General: Reports: ROS Unobtainable Physical Examination General Exam: No Acute Distress Chest Exam: Normal air movement Heart Exam: Rate Normal Male Exam R neph tube draining red urine w/ small amount of clots; 24Fr SP catheter w/ small amount of red urine draining and clots visible in the catheter Vital Signs/I&O Vital Signs Date Time Temp Pulse Resp B/P (MAP) Pulse Ox O2 Delivery O2 Flow Rate FiO2 03/13/20 15:02 93 Ventilator 45 03/13/20 15:02 91 23 03/13/20 12:00 98.3 135/64 (92) 03/13/20 06:36 55.0 I&O- Last 24 Hours up to 6 AM 03/13/20 06:00 Intake Total 3245 ml Output Total 4442 ml Balance -1197 ml Laboratory Data 24H Labs Laboratory Tests 2 03/13/20 04:25: Nucleated Red Blood Cells % (auto) 0.0, Prothrombin Time 15.1H, Prothromb Time International Ratio 1.16, Activated Partial Thromboplast Time 67.8H, Fibrinogen 658H, Anion Gap 9, Glomerular Filtration Rate 58.2, Calcium Level 8.9, Phosphorus Level 2.2L, Total Bilirubin 0.5, Aspartate Amino Transf (AST/SGOT) 68H, Alanine Aminotransferase (ALT/SGPT) 102H, Alkaline Phosphatase 545H, Lactate Dehydrogenase 455H, Total Creatine Kinase 42, Total Protein 5.5L, Albumin 1.3L, Albumin/Globulin Ratio 0.3, Triglycerides Level 62, Cholesterol Level 105 03/13/20 13:32: Nucleated Red Blood Cells % (auto) 0.0, Prothrombin Time 14.7H, Prothromb Time International Ratio 1.12, Activated Partial Thromboplast Time 45.0H 03/13/20 15:26: CBC/BMP Laboratory Tests 03/13/20 04:25 03/13/20 13:32 Microbiology Microbiology 03/10/20 Gram Stain - Final, Complete 03/10/20 Sputum Culture - Final, Complete Assessment This is a 80 y/o M w/ metastatic bladder cancer recently on Keytruda and 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 I evaluated the patient a few hours ago and changed out his SP catheter for a new 24Fr catheter. I irrigated his bladder w/ approximately 1L of NS and removed a large amount of clots. I kept irrigating until no additional clots came out. I also flushed his R neph tube w/ saline. Since then the neph tube has continued to drain red urine, but the SP catheter has had minimal output and appears to have clotted off again. I therefore have recommended that we take the patient to the OR for cystoscopy w/ clot evacuation and fulguration. Plan - informed consent obtained via phone from patient's daughter and healthcare proxy, Estefany Appliquer - patient already receiving broad-spectrum abx - to OR this evening SHUN BOYER MD Mar 13, 2020 16:41
[2020-03-13] MEDS: CHLORHEXIDINE GLUCONATE 0.12 % 15ML UDC (PERIDEX ORAL RINSE) MT SCH (20:32)
[2020-03-13] MEDS ORDERED: propofoL 200 MG/20 ML VIAL As Ordered ONE (22:10)
[2020-03-13] MEDS ORDERED: fentaNYL 100 MCG/2 ML INJECTION (J3010) As Ordered ONE (22:10)
[2020-03-13] MEDS ORDERED: PHENYLephrine HCL 500 MCG/5 ML (100MCG/ML) SYRINGE (J2370) As Ordered ONE ×2 (22:36→22:59)
[2020-03-14] VITALS (25 sets, daily range): BP systolic 84–135; BP diastolic 44–64
[2020-03-14 00:28] LABS: HEMATOCRIT 23.8 % (42.0-52.0); HEMOGLOBIN 7.9 g/dl (13.5-17.5); MEAN CORPUSCULAR HEMOGLOBIN 29.5 pg (27.0-33.0); MEAN CORPUSCULAR HGB CONC 33.2 g/dl (32.0-36.5); MEAN CORPUSCULAR VOLUME 88.8 fl (80.0-96.0); PLATELET COUNT, AUTOMATED 121 10^3/uL (150-450); RED BLOOD COUNT 2.68 10^6/uL (4.30-6.10); WHITE BLOOD COUNT 9.1 10^3/uL (4.0-10.0)
[2020-03-14] MEDS: PIPERACILLIN/TAZOBACTAM SOD 3.375 GM in D5W MINI-BAG PLUS 50 ML IV SCH ×5 (00:56→23:36)
[2020-03-14] MEDS: NS 1,000 ML IV SCH ×2 (01:15→17:02)
[2020-03-14] MEDS: TRIMETHOPRIM/SULFAMETHOXAZOLE 250 MG in D5W 500 ML IV SCH ×4 (03:07→20:20)
[2020-03-14 05:15] LABS: HEMATOCRIT 22.8 % (42.0-52.0); HEMOGLOBIN 7.5 g/dl (13.5-17.5); MEAN CORPUSCULAR HEMOGLOBIN 29.1 pg (27.0-33.0); MEAN CORPUSCULAR HGB CONC 32.9 g/dl (32.0-36.5); MEAN CORPUSCULAR VOLUME 88.4 fl (80.0-96.0); PLATELET COUNT, AUTOMATED 111 10^3/uL (150-450); RED BLOOD COUNT 2.58 10^6/uL (4.30-6.10); WHITE BLOOD COUNT 7.6 10^3/uL (4.0-10.0)
[2020-03-14 05:26] LABS: INR 1.12; PROTHROMBIN TIME 14.6 SECONDS (12.5-14.3)
[2020-03-14 05:27] LABS: PARTIAL THROMBOPLASTIN TIME 41.2 SECONDS (24.2-38.5)
[2020-03-14 05:48] LABS: ALBUMIN 1.1 GM/DL (3.2-5.2); BILIRUBIN,TOTAL 0.6 MG/DL (0.2-1.0); C REACTIVE PROTEIN QUANTITATIV 9.23 MG/DL (0.00-0.30); CALCIUM LEVEL 7.6 MG/DL (8.8-10.2); CREATININE FOR GFR 1.64 MG/DL (0.70-1.30); GLOMERULAR FILTRATION RATE 43.4 (>42); PHOSPHORUS LEVEL 3.4 MG/DL (2.5-4.9); POTASSIUM SERUM 4.6 MEQ/L (3.5-5.1)
[2020-03-14 05:50] LABS: ABG BASE EXCESS -5.5 (-2.0-2.0); ABG HCO3 18.7 MEQ/L (22.0-26.0); ABG O2 SATURATION 95.9 % (95.0-99.0); ABG PARTIAL PRESSURE CO2 31.7 mmHg (35.0-45.0); ABG PARTIAL PRESSURE O2 84.1 mmHg (75.0-100.0); ABG STANDARD HCO3 19.9 MEQ/L (22.0-26.0); ABG TOTAL CO2 19.7 MEQ/L (23.0-31.0); ABG pH (ARTERIAL) 7.389 UNITS (7.350-7.450)
--- NOTE | 2020-03-14 07:35 | RO ---
OPERATIVE NOTE DATE OF OPERATION: 03/10/2020 PREOPERATIVE DIAGNOSES: Gross hematuria. Bladder cancer. POSTOPERATIVE DIAGNOSES: Gross hematuria. Bladder cancer. PROCEDURE: Cystoscopy, transurethral resection of clot, clot evacuation, cauterization of bleeding. SURGEON: Eric Cavazos MD 4[employer] GRADE MATH TEACHER: None. ANESTHESIA: General. OPERATIVE INDICATIONS: This is a 80-year-old male with known metastatic bladder cancer as well as urethral stricture disease managed with a chronic suprapubic catheter. While in the ICU this week, he started to experience significant gross hematuria from his suprapubic catheter and attempts were made to irrigate the catheter to remove all the clots but the catheter became obstructed quickly shortly afterwards. Given the amount of clot, it was determined that the best course of action was to bring him to the operating room to try and remove all the clot and identify the source of bleeding. DESCRIPTION OF PROCEDURE: The patient was brought to the operating room and general anesthesia was administered. He was already on broad-spectrum antibiotics. He was then prepped and draped in the supine position. At this point, a 24-Beninese catheter was inserted sterilely into the bladder through the suprapubic tract. This catheter was then utilized to mainly irrigate his bladder with normal saline and some clots were removed. Once that was done, the catheter was removed and a resectoscope was inserted through the suprapubic tract into the bladder. The patient still had a large amount of clot throughout his bladder. I then attempted to use a Urovac evacuator to remove clots from the bladder but this was not very effective as a lot of the fluid used to flush into the bladder quickly drained right back out along side the resectoscope out of the suprapubic tract. I then utilized a bipolar loop to try to resect a large amount of the clot and this was somewhat effective but it was not possible to remove all the clots. I then used the Urovac evacuator and was able to get some of the resected clot out of the bladder. Once that was done, I was able to identify several large tumors along the bladder wall throughout the bladder. There were areas of bleeding on the tumors and a plasma button was utilized to cauterize several areas of bleeding. It also appeared that there was bladder tumor growing up through the suprapubic tract and up to the skin level just adjacent to the suprapubic opening. After spending a significant amount of time trying to remove clots and cauterizing bleeding tumor, the decision was made to stop. It did not appear possible to remove all the clots from the bladder but the active bleeding was significantly controlled with the procedure. After this was done, the resectoscope was removed and a 24-Beninese three-way catheter was inserted into the bladder. The balloon was filled with 30 mL of sterile water and then the catheter was connected to gravity drainage. The irrigation port had normal saline opened so it would continuously irrigate the bladder. This marked the conclusion of the procedure. The patient was then transported back up to the ICU in stable condition. ESTIMATED BLOOD LOSS: 50 mL. COMPLICATIONS: None. SPECIMENS: None. PLAN: The patient will be monitored in the ICU and continuous bladder irrigation will be done. We will titrate down the irrigation flow if the outflow remains pink or clearer. JERRI
[2020-03-14] MEDS: PANTOPRAZOLE 40MG VIAL (C9113 PER 1) IV SCH (08:41)
[2020-03-14] MEDS: CHLORHEXIDINE GLUCONATE 0.12 % 15ML UDC (PERIDEX ORAL RINSE) MT SCH ×2 (08:41→20:20)
[2020-03-14] MEDS: methylPREDNISolone 125MG 2ML VIAL IV SCH (08:41)
[2020-03-14] MEDS ORDERED: GLUCOSE 4GM CHEW TABLET PO PRN (09:30)
[2020-03-14] MEDS ORDERED: GLUCAGON INJ 1MG VIAL SC PRN (09:30)
[2020-03-14] MEDS ORDERED: DEXTROSE 50% 50 ML SYRINGE IV PRN (09:30)
--- NOTE | 2020-03-14 09:30 | REP ---
INDICATION: Respiratory Failure. COMPARISON: Comparison chest x-ray 13 March 2020. TECHNIQUE: Portable upright AP chest radiograph. FINDINGS: Extensive diffuse interstitial lung disease a pattern persists essentially unchanged. There is slight blunting of the right lateral pleural angle.. Monitoring electrodes are seen. Endotracheal tube remains in good position just above the level of the transverse aorta. A left IJ line terminates to the right of midline. NG tube enters the gastric fundus. IMPRESSION: Extensive diffuse interstitial lung disease. Mild cardiomegaly. Endotracheal and nasogastric tubes in good position.. <Electronically signed by Cale Acharya > 03/14/20 0724
[2020-03-14] MEDS: propofoL 1,000 MG in IV 1 EA IV SCH ×2 (11:57→20:20)
--- NOTE | 2020-03-14 13:30 | CCN ---
CRITICAL CARE NOTE DATE: 03/14/2020 The patient is seen in the intensive care unit intubated and mechanically ventilated, critically ill. This is hospital day #4, endotracheal tube day #2, postoperative day #2. Late last evening, patient underwent cystoscopy with clot removal and cautery of actively bleeding bladder cancer. Bedside his temperature is 97, pulse rate 81, respirations 26/16 delivered, blood pressure is 102/51. Intake and output for the past 24 hours: 1896 in, 1710 out, since midnight 1076 in, 490 out. He is ill appearing. His endotracheal tube and orogastric tubes are in good position. Heart sounds are regular without appreciable murmur. Breath sounds diminished, coarse in the bases. Abdomen soft. Bowel sounds, right lower quadrant. DIAGNOSTIC STUDIES: Sodium is 127, potassium 4.6, chloride s 99, CO2 of 20, BUN is up to 33, creatinine is up to 1.64. The glucose is 129. Calcium 7.6. Ferritin is up slightly at 784 from 714. His AST is 62, ALT is down to 75, alkaline phosphatase is down to 398. LDH is down slightly at 416 from 455. The C-reactive protein is down slightly at 9.23 from 10.91, and the albumin is 1.1. White cell count is 7.6. Hemoglobin is down to 7.5 from 7.9. Hematocrit is 22.8. Platelet count 111,000, down from 121. His PT is 14, PTT 41. Fibrinogen is 457, yesterday afternoon 658. Serologic studies are positive for COVID-19. Methicillin-resistant Staphylococcus aureus (MRSA) was negative. Sputum culture shows no organisms of March 10 and no evidence of Pneumocystis carinii on March 11. Chest imaging shows tubes and lines in good position. There are diffuse bilateral infiltrates. On medications review, he is receiving Solu-Medrol 60 mg daily and has been since admission, piperacillin every 6 hours, and intravenous (IV) Bactrim every 6 hours, nebulized bronchodilator therapy, Protonix, and propofol for sedation. Tube feeds are tolerated, and free water is being administered via the nasogastric (NG) tube. The primary problem requiring critical attention is acute respiratory failure, at this point, likely related to progressive COVID pneumonia. The patient has been on steroids since his transfer to this hospital and since his admission. His A-a Gradient has not changed over the past 24 hours. Inflammatory markers are somewhat variable. We will continue close monitoring and supportive care. Pneumocystis carinii pneumonia. Initial sputum studies were negative; however, his history is very suggestive of repeat sputum from a deep suction specimen and continue Septra pending that result. Urothelial carcinoma. Based on the surgical report from last evening, this is a quite extensive disease. His bleeding is now less, but he has failed monoclonal antibody therapy, and therefore prognosis is poor. Chronic kidney disease. His creatinine is up today, possibly related to the obstruction experienced yesterday. Now that his urine is draining, we will hydrate him and anticipate improvement in creatinine. His central venous pressure (CVP) was only 7 this morning. 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 Patient has been on steroids and will continue to be. His liver function testing is somewhat better. Nutrition. He is tolerating tube feedings. His sodium is down some. I will hold free water. Blood loss anemia. Hemoglobin is low but acceptable at this point. We will transfuse if he falls below 7. Deep venous thrombosis (DVT) prophylaxis is being addressed with sequential hose. Anticoagulation therapy is contraindicated, though his risk is substantial based on his underlying diagnosis; however, his active bleeding precludes use of any anticoagulation therapy at this time. Ulcer prophylaxis is being addressed with Protonix and sequential hose. I will make an attempt to reach the patient's family to give them an update on his status. I have reviewed the case with the ICU team. His condition is critical. Prognosis is poor. One hour and 47 minutes was spent in the provision of bedside critical care and coordination, excluding an procedure time.
[2020-03-14] MEDS: HumaLOG INSULIN (NovoLOG) PER UNIT SC SCH ×3 (13:35→23:12)
--- NOTE | 2020-03-14 17:07 | IPNPDOC ---
Subjective Review oF Systems Chief Complaint The patient is a 80-year-old male admitted with a reason for visit of Hypoxia. Events since Last Encounter Virtual Visit Done Via [employer] No acute events since surgery last night. Per nursing the SP catheter has drained well w/ CBI going. The neph tube has also drained well. Objective Physical Examination General Exam: No Acute Distress ABDOMEN EXAM: Other (SP cath draining light pink urine w/ CBI on medium drip; R neph tube draining jenifer colored urine) Vital Signs/I&O Vital Signs Date Time Temp Pulse Resp B/P (MAP) Pulse Ox O2 Delivery O2 Flow Rate FiO2 03/14/20 16:00 50 03/14/20 16:00 97.5 95 18 130/60 (87) 93 Ventilator 50.0 I&O- Last 24 Hours up to 6 AM 03/14/20 06:00 Intake Total 2322 ml Output Total 1300 ml Balance 1022 ml Laboratory Data Labs 24H Laboratory Tests 2 03/13/20 17:25: Ferritin 714H, C-Reactive Protein, Quantitative 10.90H 03/13/20 23:40: Nucleated Red Blood Cells % (auto) 0.0 03/14/20 04:49: Ferritin 784H, C-Reactive Protein, Quantitative 9.23H, Nucleated Red Blood Cells % (auto) 0.0, Prothrombin Time 14.6H, Prothromb Time International Ratio 1.12, Activated Partial Thromboplast Time 41.2H, Fibrinogen 457H, Blood Gas Bicarbonate Standard 19.9L, Arterial Blood pH 7.389, Arterial Blood Partial Pressure CO2 31.7L, Arterial Blood Partial Pressure O2 84.1, Arterial Blood Total CO2 19.7L, Arterial Blood HCO3 18.7L, Arterial Blood Base Excess -5.5L, Arterial Blood Oxygen Saturation 95.9, Anion Gap 8, Glomerular Filtration Rate 43.4, Calcium Level 7.6L, Phosphorus Level 3.4#, Total Bilirubin 0.6, Aspartate Amino Transf (AST/SGOT) 62H, Alanine Aminotransferase (ALT/SGPT) 75, Alkaline Phosphatase 398H, Lactate Dehydrogenase 416H, Total Creatine Kinase 34L, Total Protein 4.0#L, Albumin 1.1L, Albumin/Globulin Ratio 0.4, Triglycerides Level 100, Cholesterol Level 95 CBC/BMP Laboratory Tests 03/13/20 23:40 03/14/20 04:49 Microbiology Microbiology 03/10/20 Gram Stain - Final, Complete 03/10/20 Sputum Culture - Final, Complete Assessment/Plan Date Seen The patient was seen on 03/14/20. Patient Summary This is a 80 y/o M w/ metastatic bladder cancer recently on Keytruda and subsequent autoimmune hepatitis treated w/ high dose steroids, intermittent gross hematuria, right hydronephrosis managed w/ a perc neph, and urethral stricture disease managed w/ a chronic SP catheter, transferred in a few days ago from OSH for acute respiratory failure, now determined to be 2/2 COVID-19. He is POD1 s/p cysto, TUR of clots and clot evacuation, cauterization of bleeding. His SP cath has drained well w/ CBI on medium drip through the night. The neph tube urine appears to be clearing up. I spoke w/ the patient's daughter after surgery yesterday evening and explained that the cancer burden in his bladder has progressed and appears to be growing out the SP catheter tract. Given this and his current state, he might have hematuria on and off and it would be difficult to manage given the tumor burden. It was also explained that I would not recommend taking him back repeatedly for surgery if the hematuria kept worsening. The hope at this point is that it will improve on its own. Until then we will continue him on CBI so that the catheter does not clot off. Plan/VTE VTE Prophylaxis Ordered?: Yes VTE Exclusion Mechanical Proph: N/A:VTE Prophy Ordered Plan - continue CBI and titrate drip so that the urine remains pink or clearer - manually irrigate the SP catheter and the R perc neph tube as needed if concerned that they are obstructed - patient has been signed out to Dr. Higgins who will be covering this weekend SHUN BOYER MD Mar 14, 2020 17:07
[2020-03-15] VITALS (23 sets, daily range): BP systolic 102–145; BP diastolic 51–75; O2SAT 96
[2020-03-15] MEDS: NS 1,000 ML IV SCH ×2 (02:00→22:00)
[2020-03-15] MEDS: TRIMETHOPRIM/SULFAMETHOXAZOLE 250 MG in D5W 500 ML IV SCH ×4 (03:30→20:37)
[2020-03-15 05:01] LABS: HEMATOCRIT 22.4 % (42.0-52.0); HEMOGLOBIN 7.4 g/dl (13.5-17.5); MEAN CORPUSCULAR HEMOGLOBIN 29.1 pg (27.0-33.0); MEAN CORPUSCULAR VOLUME 88.2 fl (80.0-96.0); PLATELET COUNT, AUTOMATED 107 10^3/uL (150-450); RED BLOOD COUNT 2.54 10^6/uL (4.30-6.10); WHITE BLOOD COUNT 6.6 10^3/uL (4.0-10.0)
[2020-03-15 05:13] LABS: INR 1.07; PROTHROMBIN TIME 14.1 SECONDS (12.5-14.3)
[2020-03-15 05:14] LABS: PARTIAL THROMBOPLASTIN TIME 42.7 SECONDS (24.2-38.5)
[2020-03-15 05:29] LABS: ABG BASE EXCESS -5.8 (-2.0-2.0); ABG HCO3 18.5 MEQ/L (22.0-26.0); ABG O2 SATURATION 97.2 % (95.0-99.0); ABG PARTIAL PRESSURE CO2 31.3 mmHg (35.0-45.0); ABG STANDARD HCO3 19.7 MEQ/L (22.0-26.0); ABG TOTAL CO2 19.4 MEQ/L (23.0-31.0); ABG pH (ARTERIAL) 7.389 UNITS (7.350-7.450)
[2020-03-15 05:31] LABS: ALBUMIN 1.2 GM/DL (3.2-5.2); BILIRUBIN,TOTAL 0.5 MG/DL (0.2-1.0); CALCIUM LEVEL 8.5 MG/DL (8.8-10.2); CREATININE FOR GFR 1.43 MG/DL (0.70-1.30); GLOMERULAR FILTRATION RATE 50.8 (>42); POTASSIUM SERUM 4.6 MEQ/L (3.5-5.1); TOTAL PROTEIN 4.7 GM/DL (6.4-8.2)
[2020-03-15] MEDS: HumaLOG INSULIN (NovoLOG) PER UNIT SC SCH ×3 (06:47→17:46)
[2020-03-15] MEDS: PIPERACILLIN/TAZOBACTAM SOD 3.375 GM in D5W MINI-BAG PLUS 50 ML IV SCH ×3 (06:47→18:14)
[2020-03-15] MEDS: IPRATROPIUM 0.5MG/ALBUTEROL 2.5MG INH SOL UD 3ML (DUONEB) NEB SCH ×2 (08:00→13:38)
[2020-03-15] MEDS: methylPREDNISolone 125MG 2ML VIAL IV SCH ×2 (09:02→17:46)
[2020-03-15] MEDS: CHLORHEXIDINE GLUCONATE 0.12 % 15ML UDC (PERIDEX ORAL RINSE) MT SCH ×2 (09:02→20:37)
[2020-03-15] MEDS: PANTOPRAZOLE 40MG VIAL (C9113 PER 1) IV SCH (09:02)
--- NOTE | 2020-03-15 09:12 | REP ---
INDICATION: Respiratory Failure. COMPARISON: 03/14/2020. TECHNIQUE: SINGLE PORTABLE AP VIEW OF THE CHEST WAS PERFORMED. FINDINGS: X interstitial opacities bilaterally are stable. There is mild cardiomegaly. The mediastinal silhouette is unchanged. Endotracheal tube, nasogastric tube and left central venous catheter are unchanged. IMPRESSION: Stable exam. <Electronically signed by Shawn Aguayo > 03/15/20 0983
--- NOTE | 2020-03-15 09:46 | IPNPDOC ---
Text Note Date of Service The patient was seen on 03/15/20 via a Facetime Virtual Visit NOTE Patient is still intubated and quite ill in the ICU and he was made DNR by his daughter. His suprapubic tube only had a very small clot last night and otherwise has been light pink and his right nephrostomy tube is draining well. Exam done via face time showed light pink urine from the suprapubic catheter and jenifer urine from the right nephrostomy tube Impression -Patient critically ill with Covid 19 intubated at this time -Metastatic bladder cancer with significant gross hematuria postop day #2 cystoscopy and clot irrigation found to have recurrent tumor in the bladder -Right ureteral obstruction now with a nephrostomy tube -H&H stable but low at 7.5 but the intensive this had decided not to transfuse at this time Plan: -Continue supportive care at this time with CBI to the suprapubic catheter VS,Fishbone, I+O VS, Fishbone, I+O Laboratory Tests 03/15/20 04:44 Vital Signs Date Time Temp Pulse Resp B/P (MAP) Pulse Ox O2 Delivery O2 Flow Rate FiO2 03/15/20 07:47 22 95 50 03/15/20 06:00 79 110/54 (78) Ventilator 03/15/20 04:00 98.5 03/14/20 18:00 50.0 I&O- Last 24 Hours up to 6 AM 03/15/20 06:00 Intake Total 4184.150 ml Output Total 3400 ml Balance 784.150 ml SOWMYA REBOLLAR MD Mar 15, 2020 09:46
[2020-03-15 10:19] LABS: ABG BASE EXCESS -4.8 (-2.0-2.0); ABG O2 SATURATION 93.3 % (95.0-99.0); ABG PARTIAL PRESSURE CO2 30.3 mmHg (35.0-45.0); ABG PARTIAL PRESSURE O2 68.2 mmHg (75.0-100.0); ABG STANDARD HCO3 20.4 MEQ/L (22.0-26.0); ABG TOTAL CO2 19.9 MEQ/L (23.0-31.0); ABG pH (ARTERIAL) 7.415 UNITS (7.350-7.450)
--- NOTE | 2020-03-15 13:10 | CCN ---
CRITICAL CARE NOTE DATE: 03/15/2020 The patient is seen in the intensive care unit. This is hospital day #5, endotracheal tube day #2, postoperative urologic surgery day #2. He is intubated, mechanically ventilated, sedated, and critically ill. Temperature is 98.5, pulse rate 79, respirations 20, blood pressure 110/54. Intake and output for the past 24 hours: 4037 in, 2915 out, since midnight, 1173 in, 975 out. His central venous pressure measured 6. At bedside, he is ill appearing, sedate, at a [place] level 3. There is spontaneous respiratory effort over the mechanically ventilated breaths from time to time. There is an endotracheal tube in place at 23 cm. His chest is symmetric and moves symmetrically with ventilated efforts. Heart sounds are regular. Breath sounds coarse, diminished. Abdomen soft. Extremities cool, dry. DIAGNOSTIC STUDIES: Sodium 127, potassium 4.6, chloride 100, CO2 of 22, BUN 31, creatinine is down to 1.34, glucose 150. His white cell count is 6.6, hemoglobin 7.4, hematocrit 22.4, platelet count is down to 107. Calcium is 8.5 with a hemoglobin of 1.2. AST is 86, Alt 104. Alkaline phosphatase is up to 600, but LDH is stable at 419. Arterial blood gases showed a pH of 7.38, pCO2 of 31, pO2 of 96, this is assist-control ventilator ventilation. Tidal volume 420, rate of 20, PEEP of 5, FiO2 of 0.5. PT is 14, PTT 42, INR 1.07. His x-ray continues to show diffuse bilateral infiltrates. No consolidation is appreciated. Tubes and lines are in good position. On medications review, he is receiving albuterol nebulized therapy, sliding-scale insulin coverage based on fingerstick blood sugars. There is a saline intravenous (IV) at 60 mL per hour. He is receiving both Zosyn and Bactrim IV, Solu-Medrol 60 mg a day, and propofol for sedation, Protonix 40 mg a day. The primary problem requiring critical attention is acute respiratory failure. We will change his ventilator mode to pressure control in an effort to improve synchrony with his spontaneous breaths and improve minute ventilation. We will recheck arterial blood gases. I will also change his bronchodilator therapy to scheduled. COVID pneumonia with acute respiratory distress syndrome (ARDS). I will increase his steroids to 40 mg every 8 hours. His liver function studies are borderline, increased some, but creatinine has improved. We will institute remdesivir and recheck inflammatory markers tomorrow. Fluid volume: Central venous pressure is 7. We will continue with saline at 60 mL per hour and monitor intake and output. 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 We will continue IV Bactrim. Urinary tract infection: We will continue with the Zosyn for the time being and recheck a procalcitonin on tomorrow's lab. 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 Chronic kidney disease. Creatinine is slightly improved after relief of the obstruction from clots. 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 We will continue with steroid therapy. Nutrition: He is tolerating tube feedings. I have held free water due to his borderline sodium and has not changed. Anemia: Hemoglobin is slightly lower. We will maintain a surveillance and transfuse at a hemoglobin of 7. Deep venous thrombosis (DVT) prophylaxis. We are limited in light of his bleeding from the urinary tract with regard to the use of the anticoagulant therapy. This is a particular concern given his COVID infection and the hypercoagulable state that accompanies it. None the less, we will continue the best we can with prophylaxis using sequential hose. Ulcer prophylaxis is afforded with both the tube feedings and Protonix. I have discussed the case with urology, and their plan is to continue with continuous bladder irrigation. There is no plan for return to the operating room for his bladder malignancy. I have discussed the patient's situation with his daughter, who is his healthcare proxy. Given the multiple comorbidities, his prognosis is grim. Should additional medical complications arise, she is considering limits to his care. One hour and 21 minutes was spent in the provision of bedside critical care and coordination, exclusive of any procedure time.
[2020-03-15] MEDS ORDERED: SODIUM CHLORIDE 0.9% INJ 10 ML SYR IV ONE (14:00)
[2020-03-15] MEDS: propofoL 1,000 MG in IV 1 EA IV SCH ×2 (15:47→20:37)
[2020-03-16] VITALS (22 sets, daily range): BP systolic 102–137; BP diastolic 51–63; O2SAT 92–95
[2020-03-16] MEDS: methylPREDNISolone 125MG 2ML VIAL IV SCH ×3 (00:16→17:25)
[2020-03-16] MEDS: HumaLOG INSULIN (NovoLOG) PER UNIT SC SCH ×4 (00:16→17:36)
[2020-03-16] MEDS: PIPERACILLIN/TAZOBACTAM SOD 3.375 GM in D5W MINI-BAG PLUS 50 ML IV SCH ×2 (00:31→06:13)
[2020-03-16] MEDS: IPRATROPIUM 0.5MG/ALBUTEROL 2.5MG INH SOL UD 3ML (DUONEB) NEB SCH ×5 (00:42→20:39)
[2020-03-16] MEDS: TRIMETHOPRIM/SULFAMETHOXAZOLE 250 MG in D5W 500 ML IV SCH ×4 (03:56→20:59)
[2020-03-16] MEDS: propofoL 1,000 MG in IV 1 EA IV SCH ×4 (03:57→21:00)
[2020-03-16 04:58] LABS: HEMOGLOBIN 7.7 g/dl (13.5-17.5); MEAN CORPUSCULAR HEMOGLOBIN 29.6 pg (27.0-33.0); MEAN CORPUSCULAR HGB CONC 33.5 g/dl (32.0-36.5); MEAN CORPUSCULAR VOLUME 88.5 fl (80.0-96.0); PLATELET COUNT, AUTOMATED 119 10^3/uL (150-450); WHITE BLOOD COUNT 7.1 10^3/uL (4.0-10.0)
[2020-03-16 05:08] LABS: INR 0.89; PROTHROMBIN TIME 12.2 SECONDS (12.5-14.3)
[2020-03-16 05:09] LABS: PARTIAL THROMBOPLASTIN TIME 34.7 SECONDS (24.2-38.5)
[2020-03-16 05:25] LABS: ABG BASE EXCESS -7.2 (-2.0-2.0); ABG HCO3 16.8 MEQ/L (22.0-26.0); ABG O2 SATURATION 94.1 % (95.0-99.0); ABG PARTIAL PRESSURE CO2 28.3 mmHg (35.0-45.0); ABG PARTIAL PRESSURE O2 72.6 mmHg (75.0-100.0); ABG STANDARD HCO3 18.5 MEQ/L (22.0-26.0); ABG TOTAL CO2 17.7 MEQ/L (23.0-31.0); ABG pH (ARTERIAL) 7.392 UNITS (7.350-7.450)
[2020-03-16 05:27] LABS: ALBUMIN 1.2 GM/DL (3.2-5.2); BILIRUBIN,TOTAL 0.4 MG/DL (0.2-1.0); C REACTIVE PROTEIN QUANTITATIV 5.44 MG/DL (0.00-0.30); CALCIUM LEVEL 7.8 MG/DL (8.8-10.2); CREATININE FOR GFR 1.29 MG/DL (0.70-1.30); GLOMERULAR FILTRATION RATE 57.2 (>42); PHOSPHORUS LEVEL 2.5 MG/DL (2.5-4.9); POTASSIUM SERUM 5.3 MEQ/L (3.5-5.1); TOTAL PROTEIN 4.5 GM/DL (6.4-8.2)
[2020-03-16] MEDS: CHLORHEXIDINE GLUCONATE 0.12 % 15ML UDC (PERIDEX ORAL RINSE) MT SCH ×2 (08:34→20:59)
[2020-03-16] MEDS: PANTOPRAZOLE 40MG VIAL (C9113 PER 1) IV SCH (08:34)
--- NOTE | 2020-03-16 09:53 | REP ---
INDICATION: Respiratory Failure. COMPARISON: 03/15/2020. TECHNIQUE: SINGLE PORTABLE AP VIEW OF THE CHEST WAS PERFORMED. FINDINGS: Diffuse interstitial densities are stable. Art mediastinum are unchanged. Endotracheal tube and left central venous catheter appear unchanged in position. Nasogastric tube is seen with side port in the stomach. IMPRESSION: Stable exam. <Electronically signed by Shawn Aguayo > 03/16/20 0949
[2020-03-16] MEDS: SODIUM CHLORIDE 0.9% INJ 10 ML SYR IV SCH (11:58)
--- NOTE | 2020-03-16 15:51 | CCN ---
CRITICAL CARE NOTE DATE: 03/16/2020 SUBJECTIVE: The patient is seen in the intensive care unit intubated, mechanically ventilated, and critically ill. This is hospital day #3, endotracheal tube #3, postop cystoscopy day #3. His IV access is an internal jugular catheter day #3. He remains sedate with moderate doses of propofol. Urinary catheter is draining jenifer urine. No active bleeding from the Giraldo catheter or the urostomy tube. OBJECTIVE: VITAL SIGNS: Temperature 97.9, T-max for the past 24 hours 98.6, pulse rate 72, respirations 20, blood pressure 105/51. His saturation is 96% on an FiO2 of 0.45. I and O for the past 24 hours 4912 in and 4415 out; since midnight 1132 in and 700 out. Central venous pressure currently measures 7. GENERAL APPEARANCE: At bedside, he is ill-appearing and sedate. Endotracheal tube is at 23 cm. There is an orogastric tube in place. Tube feed is infusing. No obvious jugular venous distention (JVD). CHEST: Symmetric. LUNGS: Breath sounds mildly coarse. ABDOMEN: Soft. EXTREMITIES: Cool. Pulses palpable. DIAGNOSTIC STUDIES: Reviewed. His sodium is 130, potassium 5.3, chloride 101, CO2 of 20, BUN 31, creatinine 1.29, glucose 208. Calcium is 7.8, but the albumin is 1.2. Phosphorus is 2.5. Ferritin is up slight at 894 from 784. Bilirubin is 0.4, AST 85, ALT up slightly to 116, alkaline phosphatase also up from 600 to 693, LDH up slightly from 419 to 448. CPK is only 33. C-reactive protein is down from 9.23 to 5.44. Hematology: White count is 7.1, hemoglobin 7.7, hematocrit up to 23, platelet count up slightly to 119,000. Arterial blood gases show a pH of 7.39, pCO2 of 28, pO2 of 72; this is on a pressure control mode of ventilation rate of 16, peak pressure 22/PEEP of 5, FiO2 of 0.45. His PT is 12, PTT 34. Fibrinogen up slightly from 457 to 495. MEDICATIONS: On review, this is day #7 of Zosyn; day #7 of Bactrim; day #2 of remdesivir. He is receiving nebulized therapy with Albuterol and Atrovent. Insulin via sliding scale coverage. Propofol for [place] level of 3. Protonix 40 mg IV daily. ASSESSMENT AND PLAN: The primary problem requiring critical attention is acute hypoxic respiratory failure. The patient is responding to pressure control mode of ventilation. I will decrease his pressure slightly as his tidal volumes are elevated and will also work down on his FiO2. COVID pneumonia: Inflammatory markers are up slightly with the exception of the C-reactive protein; however, the FiO2 is slightly improved and on my review of his chest x-ray, it appears less busy than it did yesterday. Tubes and lines remain in good position. Formal report is pending. We will continue to monitor his inflammatory markers. From an infectious disease standpoint, his procalcitonin remains pending. I will stop the Zosyn at this point as it was prescribed for a urinary tract infection documented prior to his admission to the hospital seven days ago. We will recheck a urinalysis to determine if additional antibiotic therapy would be indicated. Pneumocystis jiroveci pneumonia: The [id number] is quite elevated; however, the sputum study for pneumocystis remains pending. This is day #6 of Bactrim. We will continue with IV Bactrim therapy. Hyperkalemia: Unclear etiology. I will repeat the level and if necessary, administer Kayexalate. Anemia: His hemoglobin is slightly better today. Bladder cancer: Bleeding has been addressed with cautery and appears to have stopped. Nevertheless, his disease is quite advanced. Fluid volume status would appear to be acceptable. His central venous pressure is 7. Blood pressures have been borderline, but acceptable. We will continue to infuse saline at 60 mL/hour. Chronic kidney disease: His creatinine is slightly improved today. 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 However, this may be related to the remdesivir started yesterday. We will continue to follow transaminases levels. Nutrition: The patient is tolerating tube feeds. We will continue support. Deep vein thrombosis (DVT) prophylaxis is limited due to the patient's bleeding diathesis. We will continue with sequential hose. If at any point it is felt acceptable to restart anticoagulation therapy, I would prefer to do so as his risk for thrombosis is significantly elevated. Ulcer prophylaxis: This is being addressed with Protonix. Glycemic control is acceptable with fingerstick blood sugars and coverage. I have spoken with the patient's family and will update them once again today. He condition remains critical. Prognosis is guarded. One hour and 33 minutes was spent in the provision of bedside critical care and coordination, exclusive of procedure time. JERRI
--- NOTE | 2020-03-16 18:35 | IPNPDOC ---
Text Note Date of Service The patient was seen on 03/16/20 Via Facetime Video NOTE Patient is still intubated and critically ill in the ICU and he was made DNR by his daughter. He is still on low CBI without any significant clotting overynig ht. Urine is light pink from suprpubic tube and jenifer from Neprhosotomy still. Exam done via face time showed light pink urine from the suprapubic catheter and jenifer urine from the right nephrostomy tube Impression -Patient critically ill with Covid 19 intubated at this time -Metastatic bladder cancer with significant gross hematuria postop day #3 cystoscopy and clot irrigation found to have recurrent tumor in the bladder -Right ureteral obstruction now with a nephrostomy tube -Watch h/h but up to 7.7 today Plan: -Continue supportive care at this time with CBI to the suprapubic catheter while the pt is intubated since we dont want to risk clot retention and need for another OR visit -Urology will follow peripherally now. If pt is extubated then we will re- evaluate at that time. VS,Fishbone, I+O VS, Fishbone, I+O Laboratory Tests 03/16/20 04:45 03/16/20 09:28 Vital Signs Date Time Temp Pulse Resp B/P (MAP) Pulse Ox O2 Delivery O2 Flow Rate FiO2 03/16/20 18:00 40 03/16/20 18:00 80 22 114/56 (80) 92 Ventilator 03/16/20 16:00 96.9 03/14/20 18:00 50.0 I&O- Last 24 Hours up to 6 AM 03/16/20 06:00 Intake Total 4872.275 ml Output Total 4150 ml Balance 722.275 ml SOWMYA REBOLLAR MD Mar 16, 2020 18:35
[2020-03-16] MEDS: NS 1,000 ML IV SCH (19:08)
[2020-03-17] VITALS (21 sets, daily range): BP systolic 114–175; BP diastolic 55–81; O2SAT 90–92
[2020-03-17] MEDS: HumaLOG INSULIN (NovoLOG) PER UNIT SC SCH ×5 (00:19→23:51)
[2020-03-17] MEDS: methylPREDNISolone 125MG 2ML VIAL IV SCH ×3 (00:19→16:08)
[2020-03-17] MEDS: propofoL 1,000 MG in IV 1 EA IV SCH ×3 (02:20→08:27)
[2020-03-17] MEDS: TRIMETHOPRIM/SULFAMETHOXAZOLE 250 MG in D5W 500 ML IV SCH ×4 (03:55→20:44)
[2020-03-17] MEDS: IPRATROPIUM 0.5MG/ALBUTEROL 2.5MG INH SOL UD 3ML (DUONEB) NEB SCH ×4 (04:03→19:39)
[2020-03-17] MEDS: NS 1,000 ML IV SCH (04:40)
[2020-03-17 04:44] LABS: HEMATOCRIT 22.3 % (42.0-52.0); HEMOGLOBIN 7.6 g/dl (13.5-17.5); MEAN CORPUSCULAR HGB CONC 34.1 g/dl (32.0-36.5); MEAN CORPUSCULAR VOLUME 88.1 fl (80.0-96.0); PLATELET COUNT, AUTOMATED 118 10^3/uL (150-450); RED BLOOD COUNT 2.53 10^6/uL (4.30-6.10); WHITE BLOOD COUNT 9.3 10^3/uL (4.0-10.0)
[2020-03-17 05:00] LABS: INR 0.98; PROTHROMBIN TIME 13.2 SECONDS (12.5-14.3)
[2020-03-17 05:01] LABS: PARTIAL THROMBOPLASTIN TIME 30.2 SECONDS (24.2-38.5)
[2020-03-17 05:10] LABS: ALBUMIN 1.3 GM/DL (3.2-5.2); ALT/SGPT 114 U/L (12-78); BILIRUBIN,TOTAL 0.3 MG/DL (0.2-1.0); BLOOD UREA NITROGEN 30 MG/DL (7-18); C REACTIVE PROTEIN QUANTITATIV 2.84 MG/DL (0.00-0.30); CALCIUM LEVEL 8.3 MG/DL (8.8-10.2); CARBON DIOXIDE LEVEL 21 MEQ/L (21-32); CHLORIDE LEVEL 100 MEQ/L (98-107); CHOLESTEROL LEVEL 133 MG/DL (< 200); CPK CREATINE PHOSPHOKINASE 33 U/L (39-308); CREATININE FOR GFR 1.13 MG/DL (0.70-1.30); FERRITIN 976 NG/ML (26-388); GLOMERULAR FILTRATION RATE > 60.0 (>42); GLUCOSE, FASTING 263 MG/DL (70-100); LDH LACTATE DEHYDROGENASE 453 U/L (87-241); PHOSPHORUS LEVEL 2.2 MG/DL (2.5-4.9); POTASSIUM SERUM 5.4 MEQ/L (3.5-5.1); SODIUM LEVEL 128 MEQ/L (136-145); TOTAL PROTEIN 4.5 GM/DL (6.4-8.2); TRIGLYCERIDES LEVEL 241 MG/DL (<150)
[2020-03-17 06:03] LABS: ABG HCO3 19.1 MEQ/L (22.0-26.0); ABG O2 SATURATION 97.5 % (95.0-99.0); ABG PARTIAL PRESSURE CO2 31.4 mmHg (35.0-45.0); ABG PARTIAL PRESSURE O2 99.7 mmHg (75.0-100.0); ABG STANDARD HCO3 20.3 MEQ/L (22.0-26.0); ABG TOTAL CO2 20.1 MEQ/L (23.0-31.0); ABG pH (ARTERIAL) 7.402 UNITS (7.350-7.450)
--- NOTE | 2020-03-17 07:34 | REP ---
INDICATION: intubation. COMPARISON: 03/10/2020, 03/11/2020, 03/13/2020 and 03/16/2020. TECHNIQUE: Single AP view of the chest performed portably with the patient upright. FINDINGS: There are bilateral interstitial infiltrates, unchanged from all prior studies. There is a left IJ central venous catheter with the tip at the confluence of the innominate vein and superior vena cava in satisfactory location, unchanged. There is an endotracheal tube with the tip above the allyn at the level of the aortic arch, unchanged. There is a nasogastric tube terminating in the abdominal left upper quadrant in satisfactory location, unchanged. Cardiac size is normal. No pleural effusions. IMPRESSION: No significant interval change. <Electronically signed by Shawn Orourke > 03/17/20 1212
[2020-03-17] MEDS: PANTOPRAZOLE 40MG VIAL (C9113 PER 1) IV SCH (09:05)
[2020-03-17] MEDS: CHLORHEXIDINE GLUCONATE 0.12 % 15ML UDC (PERIDEX ORAL RINSE) MT SCH ×2 (09:05→20:10)
--- NOTE | 2020-03-17 10:11 | CCN ---
CRITICAL CARE NOTE DATE: 03/10/2020 SUBJECTIVE: The patient is seen in the intensive care unit intubated, mechanically ventilated, critically ill. This is hospital day #7; ICU day #7; ET tube day #4; and postop cystoscopy day #4. There were no major events through the night. The patient's oxygen saturation has held and improved slightly. Urine remains jenifer. OBJECTIVE: VITAL SIGNS: At bedside, his temperature is 97, T-max for the past 24 hours 98, pulse rate 96, respirations 22, blood pressure 115/86. Saturation is 90% on 40% oxygen. I and O for the past 24 hours 4949 in, 2765 out; since midnight 1132 in, 1350 out. His central venous pressure currently measures 6 to 7. GENERAL APPEARANCE: At bedside, he is ill-appearing, but responsive to voice with propofol on hold. He squeezes hands bilaterally and opens his eyes briefly. HEENT: His oral mucosa is pink. Endotracheal tube is at 23 cm. NECK: Supple. Jugular veins are not distended. The carotid upstroke is sluggish. HEART: Sounds are regular without appreciable murmur. LUNGS: Breath sounds are coarse and diminished, but no dullness, no fremitus, no accessory muscle engagement. ABDOMEN: Soft. There are bowel sounds in the right lower quadrant. Urostomy and Giraldo catheter draining jenifer urine. EXTREMITIES: Show edema and ecchymosis. Pulses are palpable x4. DIAGNOSTIC STUDIES: His white cell count is 9.3, hemoglobin 7.6, hematocrit 22.3, platelet count 118,000. Electrolytes: Sodium is down slightly at 128, potassium remains elevated at 5.4, chloride 101, CO2 of 21, BUN 30, creatinine 1.13 down from 1.29. Glucose is 263. His calcium is 8.3, phosphorus 2.2. Ferritin is up slightly at 976 from 894. His liver enzymes AST is down to 72 from 85. ALT is down at 114 from 116. His alkaline phosphatase remains elevated slightly less than yesterday at 666. LDH is 453. His CPK is 33. Albumin is 1.3. Procalcitonin has returned at 0.46. His PT is 13, PTT 30. Fibrinogen is up at 667. Arterial blood gases show a pH of 7.40, pCO2 of 31, pO2 of 99 based on a pressure control mode of ventilator rate of 16, peak pressure 20 over PEEP of 5. FiO2 of 0.4. Chest x-ray was reviewed and is essentially stable from yesterday. Tubes and lines are in good position. Sputum culture for pneumocystis jiroveci is pending and urine culture is also pending. MEDICATIONS: On review, this is day #7 of Bactrim and day #2 of remdesivir. He is receiving Solu-Medrol 40 mg every eight hours, Protonix, and DuoNebs. Saline is infusing at 60 mL/hour, tube feedings at 60 mL/hour and propofol to achieve a [place] level of 2. ASSESSMENT/PLAN: The primary problem requiring critical attention is acute respiratory failure. We will change his mechanical ventilator to support mode and hold sedation, and follow arterial blood gases in an hour. COVID pneumonia with acute respiratory distress syndrome (ARDS): His gas exchange is somewhat improved. Chest x-ray is stable. Inflammatory markers are variable. He has received remdesivir and steroids. From an infectious disease standpoint, his procalcitonin was negative and we are awaiting the sputum analysis for pneumocystis jiroveci pneumonia (PJP). For now, we will continue with the intravenous (IV) Septra. Hyperkalemia: His level is high, but stable and not increasing. We will continue to monitor this. Anemia: Hemoglobin is holding. We will transfuse at a threshold of 7. Bladder cancer: The patient has diffuse disease, but thankfully with cystoscopic interventions he is no longer actively bleeding. Chronic kidney disease: The patient's creatinine is at his baseline at this point. Autoimmune hepatitis: Transaminases are borderline stable. Volume status: The patient's central venous pressure (CVP) is 7 and he has adequate urine output. We will continue with saline at 60 mL/hour. Nutritional support: He is tolerating tube feedings. Deep vein thrombosis (DVT) prophylaxis: This is addressed with sequential hose. Given his active bleeding, we have felt it ill advised to restart anticoagulation therapy despite significant risk. Glycemic control is within acceptable range. We will continue monitoring and insulin coverage. The patient's condition remains critical. Prognosis is guarded. I will update the family on his status. One hour and 36 minutes were spent in the provision of bedside critical care and coordination exclusive of procedure time. [facility]
[2020-03-17 10:41] LABS: ABG BASE EXCESS -6.4 (-2.0-2.0); ABG O2 SATURATION 94.5 % (95.0-99.0); ABG PARTIAL PRESSURE CO2 26.5 mmHg (35.0-45.0); ABG PARTIAL PRESSURE O2 73.3 mmHg (75.0-100.0); ABG STANDARD HCO3 19.1 MEQ/L (22.0-26.0); ABG TOTAL CO2 17.8 MEQ/L (23.0-31.0); ABG pH (ARTERIAL) 7.424 UNITS (7.350-7.450)
[2020-03-17] MEDS: SODIUM CHLORIDE 0.9% INJ 10 ML SYR IV SCH (13:19)
[2020-03-17] MEDS: MIDAZOLAM INJ 2MG/2ML VIAL (J2250 PER 1MG) IV PRN ×4 (17:50→23:51)
[2020-03-17] MEDS: MICAFUNGIN SODIUM 100 MG in D5W MINI-BAG PLUS 100 ML IV SCH (18:03)
[2020-03-18] VITALS (26 sets, daily range): BP systolic 116–185; BP diastolic 56–88
[2020-03-18] MEDS: methylPREDNISolone 125MG 2ML VIAL IV SCH ×3 (01:04→16:05)
[2020-03-18] MEDS: MIDAZOLAM INJ 2MG/2ML VIAL (J2250 PER 1MG) IV PRN ×5 (01:46→10:38)
[2020-03-18] MEDS: TRIMETHOPRIM/SULFAMETHOXAZOLE 250 MG in D5W 500 ML IV SCH ×2 (02:25→09:18)
[2020-03-18] MEDS: IPRATROPIUM 0.5MG/ALBUTEROL 2.5MG INH SOL UD 3ML (DUONEB) NEB SCH ×4 (02:40→19:46)
[2020-03-18] MEDS: NS 1,000 ML IV SCH ×2 (04:35→16:33)
[2020-03-18] MEDS: HumaLOG INSULIN (NovoLOG) PER UNIT SC SCH ×4 (05:25→23:27)
[2020-03-18 05:45] LABS: ABG BASE EXCESS -6.9 (-2.0-2.0); ABG HCO3 16.1 MEQ/L (22.0-26.0); ABG O2 SATURATION 96.4 % (95.0-99.0); ABG PARTIAL PRESSURE CO2 24.7 mmHg (35.0-45.0); ABG PARTIAL PRESSURE O2 85.1 mmHg (75.0-100.0); ABG STANDARD HCO3 18.8 MEQ/L (22.0-26.0); ABG TOTAL CO2 16.9 MEQ/L (23.0-31.0); ABG pH (ARTERIAL) 7.432 UNITS (7.350-7.450)
[2020-03-18 05:53] LABS: HEMATOCRIT 25.2 % (42.0-52.0); HEMOGLOBIN 8.4 g/dl (13.5-17.5); MEAN CORPUSCULAR HEMOGLOBIN 28.8 pg (27.0-33.0); MEAN CORPUSCULAR HGB CONC 33.3 g/dl (32.0-36.5); MEAN CORPUSCULAR VOLUME 86.3 fl (80.0-96.0); PLATELET COUNT, AUTOMATED 254 10^3/uL (150-450); RED BLOOD COUNT 2.92 10^6/uL (4.30-6.10)
[2020-03-18 05:54] LABS: WHITE BLOOD COUNT 30.7 10^3/uL (4.0-10.0)
[2020-03-18 06:17] LABS: ALBUMIN 1.5 GM/DL (3.2-5.2); ALT/SGPT 148 U/L (12-78); BILIRUBIN,TOTAL 0.5 MG/DL (0.2-1.0); BLOOD UREA NITROGEN 37 MG/DL (7-18); CALCIUM LEVEL 8.2 MG/DL (8.8-10.2); CARBON DIOXIDE LEVEL 20 MEQ/L (21-32); CHLORIDE LEVEL 98 MEQ/L (98-107); CHOLESTEROL LEVEL 155 MG/DL (< 200); CPK CREATINE PHOSPHOKINASE 51 U/L (39-308); CREATININE FOR GFR 1.04 MG/DL (0.70-1.30); FERRITIN 1279 NG/ML (26-388); GLOMERULAR FILTRATION RATE > 60.0 (>42); GLUCOSE, FASTING 200 MG/DL (70-100); LDH LACTATE DEHYDROGENASE 553 U/L (87-241); PHOSPHORUS LEVEL 2.1 MG/DL (2.5-4.9); SODIUM LEVEL 126 MEQ/L (136-145); TOTAL PROTEIN 4.9 GM/DL (6.4-8.2); TRIGLYCERIDES LEVEL 223 MG/DL (<150)
--- NOTE | 2020-03-18 07:19 | REP ---
INDICATION: intubation. COMPARISON: 03/17/2020 portable chest. TECHNIQUE: Single AP view of the chest upright performed portably. FINDINGS: The bilateral interstitial infiltrates are unchanged. There are no focal infiltrates or pleural effusions. Cardiac size is normal. The nisreen, mediastinum, and skeletal structures are unremarkable. The ET tube, NG tube and left IJ central venous catheter all remain in satisfactory positions, unchanged. IMPRESSION: There is no interval change. <Electronically signed by Shawn Orourke > 03/18/20 0724
[2020-03-18] MEDS: CHLORHEXIDINE GLUCONATE 0.12 % 15ML UDC (PERIDEX ORAL RINSE) MT SCH ×2 (09:04→20:11)
[2020-03-18] MEDS: PANTOPRAZOLE 40MG VIAL (C9113 PER 1) IV SCH (09:04)
[2020-03-18 09:49] LABS: HEMATOCRIT 25.8 % (42.0-52.0); HEMOGLOBIN 8.9 g/dl (13.5-17.5); MEAN CORPUSCULAR HGB CONC 34.5 g/dl (32.0-36.5); MEAN CORPUSCULAR VOLUME 86.9 fl (80.0-96.0); PLATELET COUNT, AUTOMATED 288 10^3/uL (150-450); RED BLOOD COUNT 2.97 10^6/uL (4.30-6.10)
[2020-03-18 09:59] LABS: WHITE BLOOD COUNT 35.8 10^3/uL (4.0-10.0)
[2020-03-18 11:00] LABS: LYMPHOCYTES 1 % (16-44); METAMYELOCYTES 2 % (0-0); MONOCYTES 1 % (0-5); MYELOCYTES 1 % (0-0); NEUTROPHILS 94 % (28-66); PLATELET ESTIMATE NORMAL (NORMAL); TOXIC GRANULATION 1+
[2020-03-18 11:01] LABS: ANISOCYTOSIS 1+; MICROCYTOSIS 1+; POIKILOCYTOSIS 1+
[2020-03-18] MEDS: MORPHINE 2 MG/ML 1ML VIAL (J2270) IV PRN (13:03)
[2020-03-18] MEDS: cefoTEtan DISODIUM 2 GM in D5W MINI-BAG PLUS 50 ML IV SCH ×2 (13:41→23:35)
[2020-03-18] MEDS: SODIUM CHLORIDE 0.9% INJ 10 ML SYR IV SCH (13:41)
--- NOTE | 2020-03-18 15:26 | CCN ---
CRITICAL CARE NOTE DATE: 03/18/2020 SUBJECTIVE: The patient is seen in the intensive care unit intubated, mechanically ventilated, critically ill. This is hospital day #8; ICU day #78; endotracheal tube day #5, left internal jugular venous catheter day #5. OBJECTIVE: GENERAL: At bedside he is ill-appearing and cachectic. VITAL SIGNS: His temperature is 98.6, pulse rate 129, respirations 20, blood pressure 179/83. He was able to be weaned to pressure support but was too weak to extubate and he is tachypneic and in more distress this morning. Input and output was not recorded correctly but the central venous pressure is only 3. HEENT: His endotracheal tube is at 23 cm. CHEST: Symmetric, moves symmetrically. Breath sounds diminished. HEART: Sounds are regular. ABDOMEN: Soft. Urinary catheter is draining jenifer material. DIAGNOSTIC STUDIES: His white cell count is up to 35,000. Differential white cell count is pending. Hemoglobin is up to 8.9, hematocrit 25.8, platelet count 288,000. His electrolytes are sodium 126, potassium is up to 6, chloride 98, CO2 20, BUN 37, creatinine is down to 1.04, glucose is 200. Highest glucose in the last 24 hours 204. Calcium is 8.2. Phosphorus 2.1. Ferritin is up from 976 to 1279. Bilirubin is 0.5. His AST is 92, ALT 148, alkaline phosphatase up from 666 to 808. LDH is up from 453 to 553. His CPK is 51. C-reactive protein is down from 2.84 to 1.9. His albumin level is 1.5. Procalcitonin on the 12th was 0.46. His fibrinogen level is 400 down from 667. Imaging studies were reviewed. His x-ray continues to show infiltrates but looks less busy to me. Microbiology studies were reviewed. His sputum initially was negative for bacteria. Cytology was sent off and on exam no pneumocystis was appreciated. However, fungal elements and hyphae with spores were described. On review of his medications, he is receiving Protonix 40 mg daily, saline 60 mL per hour, tube feeds at 60 mL per hour, DuoNebs every 6 hours, Solu-Medrol 40 mg every 8 hours, remdesivir, this is day #3 100 daily. Micafungin was started yesterday 100 mg daily. The primary problem requiring critical attention is acute respiratory failure. The patient tolerated the change to pressure support but his mechanics were poor and his respiratory rate has increased. We will continue with support mode and monitor gas exchange. COVID pneumonia: The patient is receiving Solu-Medrol and remdesivir. His inflammatory markers are split. Chest x-ray may be a little better. From an infectious disease standpoint, his procalcitonin was negative and his Zosyn was stopped two days ago after seven days of therapy. He was started yesterday on antifungal therapy due to the findings on his sputum. He has received seven days of Bactrim and I will stop the Bactrim at this point. Today his white blood cell count is significantly up. A differential is pending but I am concerned about a secondary infection. We will obtain blood cultures and empirically start Cefotan. Hyperkalemia: This could likely be related to the Bactrim and we are stopping it today. I will recheck his potassium at 6:00 p.m. Anemia: Hemoglobin is improved. Chronic kidney disease: His creatinine is improved. Volume status: Input and output was not recorded appropriately but his central venous pressure is 3. He is receiving 3 liters of volume each day. Bladder carcinoma: Poor prognosis. Nutritional support: He is tolerating tube feedings at 60 mL per hour. Deep vein thrombosis (DVT) prophylaxis: This is in place with sequential hose. We are avoiding anticoagulation due to his hemorrhagic diathesis from his bladder cancer. Glycemic control is within acceptable limites. The patient's condition remains critical. Prognosis is guarded to poor. One hour and 47 minutes were spent in the provision of bedside critical care and coordination exclusive of any procedure time.
[2020-03-18] MEDS: propofoL 1,000 MG in IV 1 EA IV SCH ×2 (16:05→20:45)
[2020-03-18] MEDS: MICAFUNGIN SODIUM 100 MG in D5W MINI-BAG PLUS 100 ML IV SCH (18:11)
[2020-03-18] MEDS ORDERED: SOD POLYSTYRENE SULFONATE SUSP 15 GM/60 ML UD PO ONE (21:00)
[2020-03-19] VITALS (31 sets, daily range): BP systolic 103–137; BP diastolic 52–62; O2SAT 92–93
[2020-03-19] MEDS: methylPREDNISolone 125MG 2ML VIAL IV SCH ×3 (00:29→16:38)
[2020-03-19] MEDS: MIDAZOLAM INJ 2MG/2ML VIAL (J2250 PER 1MG) IV PRN ×2 (00:29→04:46)
[2020-03-19] MEDS: IPRATROPIUM 0.5MG/ALBUTEROL 2.5MG INH SOL UD 3ML (DUONEB) NEB SCH ×4 (02:29→20:15)
[2020-03-19] MEDS: MORPHINE 2 MG/ML 1ML VIAL (J2270) IV PRN (03:40)
[2020-03-19 05:44] LABS: ABG HCO3 18.6 MEQ/L (22.0-26.0); ABG O2 SATURATION 99.3 % (95.0-99.0); ABG PARTIAL PRESSURE CO2 32.5 mmHg (35.0-45.0); ABG PARTIAL PRESSURE O2 150.9 mmHg (75.0-100.0); ABG STANDARD HCO3 19.5 MEQ/L (22.0-26.0); ABG TOTAL CO2 19.6 MEQ/L (23.0-31.0)
[2020-03-19 05:45] LABS: ABG pH (ARTERIAL) 7.375 UNITS (7.350-7.450)
[2020-03-19 06:12] LABS: MEAN CORPUSCULAR HEMOGLOBIN 29.5 pg (27.0-33.0); MEAN CORPUSCULAR HGB CONC 33.3 g/dl (32.0-36.5); MEAN CORPUSCULAR VOLUME 88.5 fl (80.0-96.0); RED BLOOD COUNT 2.17 10^6/uL (4.30-6.10); WHITE BLOOD COUNT 20.2 10^3/uL (4.0-10.0)
[2020-03-19] MEDS: HumaLOG INSULIN (NovoLOG) PER UNIT SC SCH ×4 (06:14→23:42)
[2020-03-19 06:21] LABS: HEMATOCRIT 19.2 % (42.0-52.0); HEMOGLOBIN 6.4 g/dl (13.5-17.5); PLATELET COUNT, AUTOMATED 158 10^3/uL (150-450)
[2020-03-19] MEDS: propofoL 1,000 MG in IV 1 EA IV SCH ×3 (06:52→17:31)
[2020-03-19 07:00] LABS: ALBUMIN 1.2 GM/DL (3.2-5.2); BILIRUBIN,TOTAL 0.5 MG/DL (0.2-1.0); C REACTIVE PROTEIN QUANTITATIV 1.68 MG/DL (0.00-0.30); CALCIUM LEVEL 8.1 MG/DL (8.8-10.2); CREATININE FOR GFR 1.26 MG/DL (0.70-1.30); GLOMERULAR FILTRATION RATE 58.8 (>42); PHOSPHORUS LEVEL 2.9 MG/DL (2.5-4.9); POTASSIUM SERUM 5.7 MEQ/L (3.5-5.1); TOTAL PROTEIN 4.1 GM/DL (6.4-8.2)
--- NOTE | 2020-03-19 07:40 | REP ---
INDICATION: MV patient. COMPARISON: 03/18/2020. TECHNIQUE: Single AP view of the chest performed portably with the patient sitting. FINDINGS: There are bilateral interstitial infiltrates. These are unchanged. There are no focal infiltrates or pleural effusions. Cardiac size is normal, unchanged. ETT, NG tube and left IJ central venous catheter remain in satisfactory locations, unchanged. IMPRESSION: There is no significant interval change. <Electronically signed by Shawn Orourke > 03/19/20 0734
[2020-03-19] MEDS: PANTOPRAZOLE 40MG VIAL (C9113 PER 1) IV SCH (08:43)
[2020-03-19] MEDS: CHLORHEXIDINE GLUCONATE 0.12 % 15ML UDC (PERIDEX ORAL RINSE) MT SCH ×2 (08:43→20:28)
[2020-03-19] MEDS: NS 1,000 ML IV SCH (10:03)
[2020-03-19] MEDS: cefoTEtan DISODIUM 2 GM in D5W MINI-BAG PLUS 50 ML IV SCH (12:05)
[2020-03-19] MEDS: SODIUM CHLORIDE 0.9% INJ 10 ML SYR IV SCH (13:00)
--- NOTE | 2020-03-19 13:25 | CCN ---
CRITICAL CARE NOTE DATE: 03/19/2020 The patient is seen in the intensive care unit, intubated and mechanically ventilated, sedate with propofol, synchronized with the ventilator at this point. This is hospital day #9, endotracheal tube day #6, postoperative day #6 from cystoscopy. He has a left internal jugular catheter in place that has been in place for 6 days. At bedside, his temperature is 98.4, pulse rate 97, respirations 24/20 delivered, blood pressure 120/59, oxygen saturation 97% with 60% FiO2. He is ill appearing, sedate, synchronized with the mechanical ventilator. Endotracheal tube is at 23 cm. Neck is supple. Heart sounds regular without appreciable murmur. Breath sounds coarse, diminished bilaterally. No focal sounds. Abdomen is soft. Extremities are edematous. Skin turgor is poor. Peripheral pulses are palpable. DIAGNOSTIC STUDIES: White cell count is down to 20.2, hemoglobin is down to 6.4, hematocrit 19.2, platelet count 158,000. His sodium is down to 127, potassium 5.7, chloride 99, CO2 of 20, BUN 52, creatinine 1.29, glucose is 186. Calcium is 8.1 and an albumin of 1.2, phosphorus 2.9. His ferritin is 1126, down from 1279. His fibrinogen is down to 322 from 657. His alkaline phosphatase is down to 729 from 808, and C-reactive protein is down to 1.68 from 1.90. Liver enzymes are elevated slightly AST 100, ALT 148. His LDH is down at 479. Arterial blood gases show a pH of 7.27, pCO2 of 32, pO2 of 150, this on pressure control mode of ventilation. Chest imaging shows tube and lines in good position. There is a persistence of interstitial prominence bilaterally. The formal report is pending on this image. On medications review, this is day #2 Cefotan, day #3 micafungin, day #6 remdesivir. He is receiving Solu-Medrol 40 mg every 8 hours, Protonix for ulcer prophylaxis. The primary problem requiring critical attention is acute hypoxic respiratory failure. His gas exchange is acceptable on the current ventilator settings. After transfusion, I will re-evaluate him and change his ventilator mode to support mode if he is stabilized at that time. COVID pneumonia: Patient is receiving steroids and remdesivir. Inflammatory markers are trending down. Secondary infectious disease: The etiology is unclear; however, his white cell count is improved significantly with addition of Cefotan. He has not had a fever. I am suspicious of a urological source. Hyperkalemia. This is possibly related to the Septra which he had been receiving, and he is responding to Kayexalate. We will continue monitoring his potassium level. Anemia: Blood counts are down today. Though his urine remains Nidia, I suspect occult urological bleeding and in any case will transfuse 2 units to improve oxygen delivery. Chronic kidney disease: His creatinine is within acceptable range. Little change from yesterday. Nutritional support. He is tolerating tube feeds at 60 mL per hour. Deep venous thrombosis (DVT) prophylaxis: Despite the hypercoagulability associated with COVID infection, we are unable to administer anticoagulation therapy due to his bleeding risk. There is no evidence of thrombotic diseases and will continue with sequential hose. Glycemic control is being affected with subcutaneous insulin and coverage. We will continue close monitoring. I have updated the patient's family on his condition, which is critical. His prognosis is guarded. One hour and 33 minutes was spent in the provision of bedside critical care and coordination, exclusive of any procedure time.
[2020-03-19] MEDS ORDERED: MOM 30ML SUSPENSION UDC PO PRN (17:00)
[2020-03-19] MEDS: MICAFUNGIN SODIUM 100 MG in D5W MINI-BAG PLUS 100 ML IV SCH (17:43)
[2020-03-20] VITALS (24 sets, daily range): BP systolic 120–170; BP diastolic 58–79; O2SAT 90–92
[2020-03-20] MEDS: methylPREDNISolone 125MG 2ML VIAL IV SCH ×2 (00:22→09:40)
[2020-03-20] MEDS: cefoTEtan DISODIUM 2 GM in D5W MINI-BAG PLUS 50 ML IV SCH ×3 (00:23→23:20)
[2020-03-20] MEDS: IPRATROPIUM 0.5MG/ALBUTEROL 2.5MG INH SOL UD 3ML (DUONEB) NEB SCH ×4 (00:27→19:18)
[2020-03-20 04:09] LABS: HEMATOCRIT 26.3 % (42.0-52.0); MEAN CORPUSCULAR HEMOGLOBIN 29.2 pg (27.0-33.0); MEAN CORPUSCULAR HGB CONC 33.8 g/dl (32.0-36.5); MEAN CORPUSCULAR VOLUME 86.2 fl (80.0-96.0); PLATELET COUNT, AUTOMATED 198 10^3/uL (150-450); RED BLOOD COUNT 3.05 10^6/uL (4.30-6.10)
[2020-03-20 04:30] LABS: WHITE BLOOD COUNT 33.3 10^3/uL (4.0-10.0)
[2020-03-20 04:31] LABS: HEMOGLOBIN 8.9 g/dl (13.5-17.5)
[2020-03-20 04:40] LABS: ALBUMIN 1.3 GM/DL (3.2-5.2); BILIRUBIN,TOTAL 0.9 MG/DL (0.2-1.0); C REACTIVE PROTEIN QUANTITATIV 1.66 MG/DL (0.00-0.30); CALCIUM LEVEL 8.1 MG/DL (8.8-10.2); CREATININE FOR GFR 1.32 MG/DL (0.70-1.30); GLOMERULAR FILTRATION RATE 55.7 (>42); PHOSPHORUS LEVEL 2.8 MG/DL (2.5-4.9); POTASSIUM SERUM 5.7 MEQ/L (3.5-5.1); TOTAL PROTEIN 4.7 GM/DL (6.4-8.2)
[2020-03-20] MEDS: propofoL 1,000 MG in IV 1 EA IV SCH ×3 (05:16→23:21)
[2020-03-20] MEDS: NS 1,000 ML IV SCH ×2 (05:17→23:20)
[2020-03-20] MEDS: HumaLOG INSULIN (NovoLOG) PER UNIT SC SCH ×4 (05:17→23:29)
[2020-03-20 05:37] LABS: ABG BASE EXCESS -6.4 (-2.0-2.0); ABG O2 SATURATION 96.1 % (95.0-99.0); ABG PARTIAL PRESSURE CO2 31.9 mmHg (35.0-45.0); ABG PARTIAL PRESSURE O2 84.8 mmHg (75.0-100.0); ABG STANDARD HCO3 19.2 MEQ/L (22.0-26.0)
--- NOTE | 2020-03-20 08:32 | REP ---
INDICATION: MV patient. COMPARISON: 03/21/2020. TECHNIQUE: Single AP view of the chest performed portably with the patient upright. FINDINGS: The bilateral interstitial infiltrates are unchanged. There are no focal infiltrates or pleural effusions. This is unchanged. Cardiac size is normal. The ETT, NG tube and left IJ central venous catheter remain in satisfactory locations, unchanged. The patient is rotated. IMPRESSION: The patient is rotated. There is no other interval change. <Electronically signed by Shawn Orourke > 03/20/20 0878
[2020-03-20] MEDS: CHLORHEXIDINE GLUCONATE 0.12 % 15ML UDC (PERIDEX ORAL RINSE) MT SCH ×2 (09:00→20:09)
[2020-03-20] MEDS: PANTOPRAZOLE 40MG VIAL (C9113 PER 1) IV SCH (09:40)
--- NOTE | 2020-03-20 12:54 | CCN ---
CRITICAL CARE NOTE DATE: 03/20/2020 The patient is seen in the intensive care unit intubated, mechanically ventilated, sedate, very weak. This is hospital day #10, intensive care unit (ICU) day #10, endotracheal tube day #7. His vital signs are temperature 97.6. Maximum temperature for the past 24 hours 99, pulse rate 109, respirations 22, blood pressure 121/60, oxygen saturation 92% on 45% oxygen. Intake and output for the past 24 hours was recorded with bladder irrigation, and the input was 7539, output 7150. Since midnight, bladder irrigation has been excluded from the counts, and the input is 1835, output 1725. At bedside he is ill appearing, very weak. Able to attempt eye opening to command with propofol turned off. His mucosae are pink and dry. The left internal jugular catheter has a hematoma surrounding the insertion site, but it has increased in size. Endotracheal tube is at 24 cm. The orogastric tube is in place with tube feedings flowing. Neck is supple. No meningismus. Heart sounds are regular, somewhat distant. Occasional ectopy. Breath sounds are diminished, symmetric. Coarse crepitance are appreciated. Abdomen is soft. The suprapubic catheter is draining clear urine. It was leaking earlier, and readjustment of the dressing has reduced the leak around the catheter. His muscles are very weak, essentially flaccid. Pulses are good in the wrists but diminished from the knees down. 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 He is grossly edematous with ecchymotic lesions of the skin from venous puncture sites. DIAGNOSTIC STUDIES: His white cell count is 33.3, hemoglobin is up to 8.9, hematocrit is 26.3, platelet count 198,000. Differential white cell count was ordered but is pending. The electrolytes are sodium 130, potassium 5.7, chloride 102, CO2 of 21, BUN 65, creatinine is up slightly at 132, glucose is 209, ranged 165-209. The calcium is 8.1 on an albumin of 1.3, phosphorus 2.8. The ferritin is down at 881 from 1126. AST 67, ALT 132. The LDH is down at 684. C-reactive protein is also down at 1.66. CPK 59. The fibrinogen is down at 267. Arterial blood gases show a pH of 7.37, pCO2 of 31, pO2 of 84, this on a pressure support mode of ventilation, PEAK of 14 over PEEP of 5, 45% oxygen. His minute ventilation is acceptable at this range. On medications review, he is receiving Protonix 40 mg a day, an intravenous (IV) with saline at 60 mL per hour, DuoNeb, Solu-Medrol 40 mg every 8 hours, micafungin 100 mg a day, day #3, Cefotan 2 grams every 12 hours day #2, and propofol drip. The primary problem requiring critical attention is COVID pneumonia with acute respiratory distress syndrome (ARDS) and hypoxic respiratory failure. We have been successfully weaning him; however, he remains so very weak, I doubt he would be successful with extubation. He has received remdesivir and is receiving steroids. His inflammatory markers are all improved today. Will continue with maximal supportive care. Hypercoagulable state: We are unable to use anticoagulation therapy due to his bladder cancer and hemorrhage. Thankfully, after cystoscopy the hemorrhage has been controlled, and there is no evidence of thrombosis. Infectious disease: Bronchial specimens revealed fungal elements, and he was started on micafungin. His white cell count jumped, and he had a low-grade fever suggesting secondary infection. He was started yesterday on Cefotan. White cell count is up today, but his differential is pending. Anemia: Hemoglobin is better after 2 units of transfusion. Chronic kidney disease: Creatinine is acceptable, and his urine output is good. Ulcer prophylaxis is being addressed with Protonix. Glycemic control is acceptable. Patient's condition is critical. Prognosis is guarded to poor. One hour and 47 minutes was spent in the provision of bedside critical care and coordination.
[2020-03-20] MEDS: methylPREDNISolone 40MG 1ML VIAL IV SCH (17:52)
[2020-03-20] MEDS: MICAFUNGIN SODIUM 100 MG in D5W MINI-BAG PLUS 100 ML IV SCH (17:52)
[2020-03-20] MEDS: MIDAZOLAM INJ 2MG/2ML VIAL (J2250 PER 1MG) IV PRN (20:09)
[2020-03-20 21:21] LABS: LYMPHOCYTES 2 % (16-44); METAMYELOCYTES 2 % (0-0); NEUTROPHILS 95 % (28-66)
[2020-03-20 21:22] LABS: PLATELET ESTIMATE NORMAL (NORMAL); POLYCHROMASIA 1+
[2020-03-20 21:24] LABS: ANISOCYTOSIS 1+
[2020-03-20 21:25] LABS: SCHISTOCYTES 1+
[2020-03-20 21:32] LABS: POIKILOCYTOSIS 2+
[2020-03-21] VITALS (23 sets, daily range): BP systolic 109–143; BP diastolic 53–65
[2020-03-21] MEDS: IPRATROPIUM 0.5MG/ALBUTEROL 2.5MG INH SOL UD 3ML (DUONEB) NEB SCH ×4 (00:56→18:13)
[2020-03-21] MEDS: methylPREDNISolone 40MG 1ML VIAL IV SCH ×3 (01:13→17:10)
[2020-03-21 04:58] LABS: BASO # 0.1 10^3/uL (0.0-0.2); BASO % 0.2 % (0.0-1.0); HEMOGLOBIN 8.2 g/dl (13.5-17.5); LYMPH # 1.2 10^3/uL (1.5-5.0); LYMPH % 2.9 % (24.0-44.0); MEAN CORPUSCULAR HEMOGLOBIN 29.4 pg (27.0-33.0); MEAN CORPUSCULAR HGB CONC 32.8 g/dl (32.0-36.5); MEAN CORPUSCULAR VOLUME 89.6 fl (80.0-96.0); MONO # 1.9 10^3/uL (0.0-0.8); MONO % 4.6 % (0.0-5.0); NEUTROPHILS # 33.8 10^3/uL (1.5-8.5); NEUTROPHILS % 83.2 % (36.0-66.0); PLATELET COUNT, AUTOMATED 235 10^3/uL (150-450); RED BLOOD COUNT 2.79 10^6/uL (4.30-6.10)
[2020-03-21 04:59] LABS: WHITE BLOOD COUNT 40.6 10^3/uL (4.0-10.0)
[2020-03-21 05:12] LABS: C REACTIVE PROTEIN QUANTITATIV 4.25 MG/DL (0.00-0.30)
[2020-03-21 05:31] LABS: ALBUMIN 1.4 GM/DL (3.2-5.2); CALCIUM LEVEL 8.7 MG/DL (8.8-10.2); CREATININE FOR GFR 1.33 MG/DL (0.70-1.30); GLOMERULAR FILTRATION RATE 55.2 (>42); PHOSPHORUS LEVEL 3.6 MG/DL (2.5-4.9); POTASSIUM SERUM 6.2 MEQ/L (3.5-5.1); TOTAL PROTEIN 4.9 GM/DL (6.4-8.2)
[2020-03-21] MEDS ORDERED: HumuLIN R (REGULAR) INSULIN (NovoLIN R) **100U/ML** PER UNIT IV STA (05:45)
[2020-03-21] MEDS ORDERED: SOD POLYSTYRENE SULFONATE SUSP 15 GM/60 ML UD PO ONE (05:45)
[2020-03-21] MEDS ORDERED: CALCIUM GLUCONATE 1,000 MG in D5W MINI-BAG PLUS 100 ML IV ONE (05:45)
[2020-03-21] MEDS ORDERED: FUROSEMIDE 20MG/2ML VIAL (J1940) IV ONE (05:45)
[2020-03-21] MEDS ORDERED: DEXTROSE 50% 50 ML VIAL IV ONE (05:45)
[2020-03-21] MEDS: HumaLOG INSULIN (NovoLOG) PER UNIT SC SCH ×4 (05:59→23:11)
[2020-03-21 06:34] LABS: ABG BASE EXCESS -5.2 (-2.0-2.0); ABG HCO3 19.8 MEQ/L (22.0-26.0); ABG O2 SATURATION 98.6 % (95.0-99.0); ABG PARTIAL PRESSURE CO2 36.4 mmHg (35.0-45.0); ABG PARTIAL PRESSURE O2 124.6 mmHg (75.0-100.0); ABG STANDARD HCO3 20.1 MEQ/L (22.0-26.0); ABG TOTAL CO2 20.9 MEQ/L (23.0-31.0); ABG pH (ARTERIAL) 7.353 UNITS (7.350-7.450)
--- NOTE | 2020-03-21 08:12 | REP ---
INDICATION: MV patient. COMPARISON: Portable chest dated 03/20/2020. TECHNIQUE: Single AP view of the chest performed portably with the patient upright. FINDINGS: The interstitial infiltrates are unchanged. No focal infiltrates or pleural effusions are identified. Cardiac size is normal. The nisreen, mediastinum, and skeletal structures are unchanged. The NG tube and ET tube remain in satisfactory positions, unchanged. The left IJ central venous catheter remains in satisfactory position, unchanged. IMPRESSION: There is no significant interval change. <Electronically signed by Shawn Orourke > 03/21/20 0805
[2020-03-21] MEDS: PANTOPRAZOLE 40MG VIAL (C9113 PER 1) IV SCH (08:46)
[2020-03-21] MEDS: CHLORHEXIDINE GLUCONATE 0.12 % 15ML UDC (PERIDEX ORAL RINSE) MT SCH ×2 (08:46→20:05)
[2020-03-21] MEDS: cefoTEtan DISODIUM 2 GM in D5W MINI-BAG PLUS 50 ML IV SCH (11:47)
[2020-03-21] MEDS: propofoL 1,000 MG in IV 1 EA IV SCH (12:51)
[2020-03-21 15:04] LABS: CALCIUM LEVEL 9.3 MG/DL (8.8-10.2); CREATININE FOR GFR 1.58 MG/DL (0.70-1.30); GLOMERULAR FILTRATION RATE 45.3 (>42); POTASSIUM SERUM 5.3 MEQ/L (3.5-5.1)
--- NOTE | 2020-03-21 15:12 | CCN ---
CRITICAL CARE NOTE DATE: 03/21/2020 CRITICAL CARE TIME: One hour and 8 minutes. This excludes all procedures. SUBJECTIVE: Mr. Yanez had worsening leukocytosis overnight. He has not had a bowel movement and was hyperkalemic this morning. Repeat BMP is pending. CBI was stopped at approximately noon without evidence of recurrence of hematuria. I placed the patient on a 5/5 spontaneous breathing trial. The patient is tolerating this well; however, appears very weak and has significant edema. Not yet responding to commands. OBJECTIVE: VITAL SIGNS: Temperature 98.8, respiratory rate 25, blood pressure 116/57, oxygen saturation 94% on 0.45 FiO2. GENERAL: Sedated, on mechanical ventilation, tolerating pressure support. Appears very weak and not moving extremities. Confined to bed. HEENT: Sclerae clear and nonicteric. Pupils equal and reactive to light. Mucous membranes are moist without lesions. Tongue is midline. NECK: Supple. No tracheal deviation or mass. There is a subclavian line without surrounding erythema or exudate. LYMPH: No cervical, supraclavicular, or axillary adenopathy. CARDIAC: Distant S1, S2 without audible murmur, rub, or gallop. There is significant systemic edema. PULMONARY: Decreased breath sounds throughout without rales, rhonchi, or wheezes. No dullness to percussion. No accessory muscle. ABDOMEN: Soft, nontender, and nondistended. No hepatosplenomegaly. No masses or hernia. There is some leakage around the suprapubic catheter. Urine is dark brown. EXTREMITIES: Significant edema in the arms bilaterally and in the legs. Significant pitting the most I have seen in quite some time. There is bruising in varying stages. No significant ulcerations. NEUROLOGIC: No purposeful movements. Does trigger the vent and have adequate tidal volumes on 5/5 pressure support. IMAGING: Chest x-ray does show again improvement of the infiltrate. LABORATORY DATA: White count is now up to 40.6, hemoglobin 8.2, and platelet count of 235,000. Sodium is 132, potassium 6.2, chloride 104, bicarb of 22, BUN of 85, creatinine of 1.33, and a glucose of 269. Sputum culture was negative for gram stain. Ferritin is elevated at 970. AST 67, ALT 119, alkaline phosphatase of 651, LDH of 576, albumin of 1.4, and fibrinogen of 341. Therefore, no significant change overall. ASSESSMENT/PLAN: Critical attention required due to the severity of his respiratory failure. 1. COVID with acute respiratory distress syndrome (ARDS). Continues to require mechanical ventilation, although he is now on pressure support. The concern is his critical weakness and his critical illness myopathy. I had a discussion with his daughter today, the health care proxy that says he has passed a spontaneous breathing trial; we should try for extubation soon possibly even tomorrow. The reason is he will not be able to get any stronger usually on mechanical ventilation and we need to make a plan whether to proceed with a tracheostomy. She states that she believes he has told the nursing staff before that he did not want tracheostomy. She understands he has a limited prognosis. The recommendation is a trial of extubation tomorrow, as long as he continues to do well on a spontaneous breathing trial, and have the family decide whether they want re-intubation with tracheostomy or the other alternative if he fails would be allow him to pass with palliative care. They are considering this decision currently and will contact me again after a decision is made. In the meantime, he is supported on mechanical ventilation. 2. Severe leukocytosis. He was on cefotetan. I have added vancomycin IV and p.o. in case there is any chance of Clostridium difficile, although he is not having significant bowel movements. 3. History of malignancy with bladder cancer with hypercoagulability due to his bleeding issues. We have not been able to anticoagulated him. 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 5. 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 Overall very poor prognosis. I believe that there is a high risk of approaching high 90% range. salvage determiner prognosis is also poor; therefore, I would recommend palliative care rather than aggressive measures.
[2020-03-21] MEDS: VANCOMYCIN HCL 1,000 MG, VIAL MATE ADAPTER 1 EACH in D5W 250 ML IV SCH (15:28)
[2020-03-21] MEDS: MICAFUNGIN SODIUM 100 MG in D5W MINI-BAG PLUS 100 ML IV SCH (17:10)
[2020-03-21] MEDS: VANCOMYCIN ORAL SOL 250MG/5ML ORAL SYRINGE PO SCH ×2 (17:56→23:05)
[2020-03-21] MEDS: NS 1,000 ML IV SCH (20:05)
[2020-03-22] VITALS (23 sets, daily range): BP systolic 90–122; BP diastolic 49–60
[2020-03-22] MEDS: methylPREDNISolone 40MG 1ML VIAL IV SCH ×2 (00:12→08:08)
[2020-03-22] MEDS: cefoTEtan DISODIUM 2 GM in D5W MINI-BAG PLUS 50 ML IV SCH ×2 (00:12→11:30)
[2020-03-22] MEDS: VANCOMYCIN HCL 1,000 MG, VIAL MATE ADAPTER 1 EACH in D5W 250 ML IV SCH ×2 (02:17→15:00)
[2020-03-22] MEDS: IPRATROPIUM 0.5MG/ALBUTEROL 2.5MG INH SOL UD 3ML (DUONEB) NEB SCH ×3 (02:45→12:41)
[2020-03-22 04:23] LABS: BASO # 0.2 10^3/uL (0.0-0.2); BASO % 0.4 % (0.0-1.0); HEMATOCRIT 21.4 % (42.0-52.0); LYMPH # 0.9 10^3/uL (1.5-5.0); LYMPH % 2.2 % (24.0-44.0); MEAN CORPUSCULAR HEMOGLOBIN 29.7 pg (27.0-33.0); MEAN CORPUSCULAR HGB CONC 31.8 g/dl (32.0-36.5); MEAN CORPUSCULAR VOLUME 93.4 fl (80.0-96.0); MONO # 1.6 10^3/uL (0.0-0.8); MONO % 4.1 % (0.0-5.0); NEUTROPHILS # 33.3 10^3/uL (1.5-8.5); NEUTROPHILS % 84.6 % (36.0-66.0); PLATELET COUNT, AUTOMATED 202 10^3/uL (150-450); RED BLOOD COUNT 2.29 10^6/uL (4.30-6.10)
[2020-03-22 04:27] LABS: WHITE BLOOD COUNT 39.4 10^3/uL (4.0-10.0)
[2020-03-22 04:29] LABS: HEMOGLOBIN 6.8 g/dl (13.5-17.5)
[2020-03-22 04:37] LABS: C REACTIVE PROTEIN QUANTITATIV 4.64 MG/DL (0.00-0.30)
[2020-03-22 04:59] LABS: ALBUMIN 1.3 GM/DL (3.2-5.2); BILIRUBIN,TOTAL 1.1 MG/DL (0.2-1.0); CREATININE FOR GFR 1.9 MG/DL (0.70-1.30); GLOMERULAR FILTRATION RATE 36.6 (>42); PHOSPHORUS LEVEL 5.1 MG/DL (2.5-4.9); TOTAL PROTEIN 4.7 GM/DL (6.4-8.2)
[2020-03-22] MEDS ORDERED: SOD POLYSTYRENE SULFONATE SUSP 15 GM/60 ML UD PO ONE (05:15)
[2020-03-22] MEDS: VANCOMYCIN ORAL SOL 250MG/5ML ORAL SYRINGE PO SCH ×2 (05:18→11:29)
[2020-03-22] MEDS: HumaLOG INSULIN (NovoLOG) PER UNIT SC SCH ×2 (05:19→11:29)
[2020-03-22 05:52] LABS: ABG BASE EXCESS -7.8 (-2.0-2.0); ABG HCO3 20.6 MEQ/L (22.0-26.0); ABG O2 SATURATION 98.8 % (95.0-99.0); ABG PARTIAL PRESSURE O2 129.9 mmHg (75.0-100.0); ABG TOTAL CO2 22.5 MEQ/L (23.0-31.0)
[2020-03-22 05:53] LABS: ABG pH (ARTERIAL) 7.153 UNITS (7.350-7.450)
[2020-03-22 05:58] LABS: ABG PARTIAL PRESSURE CO2 60.2 mmHg (35.0-45.0)
[2020-03-22] MEDS: PANTOPRAZOLE 40MG VIAL (C9113 PER 1) IV SCH (08:08)
[2020-03-22] MEDS: CHLORHEXIDINE GLUCONATE 0.12 % 15ML UDC (PERIDEX ORAL RINSE) MT SCH (08:09)
--- NOTE | 2020-03-22 08:12 | REP ---
INDICATION: MV patient COMPARISON: 03/21/2020 TECHNIQUE: Portable AP view of the chest FINDINGS: Endotracheal tube and nasogastric tube in stable satisfactory position. Left IJ line with tip in the brachiocephalic vein remains stable. Evaluation is limited by poor inspiratory effort and portable technique. Diffuse interstitial changes and suspected scattered fibrosis are again noted. Subtle scattered primarily basilar airspace disease cannot be excluded. No obvious effusion. No pneumothorax. Skeletal structures are stable. IMPRESSION: 1. Limited by technique and poor inspiratory effort. 2. Lines and tubes in satisfactory stable position. 3. Diffuse interstitial changes remains stable. Cannot exclude subtle scattered airspace disease. <Electronically signed by Fer Vargas > 03/22/20 [id number]
[2020-03-22] MEDS: NS 1,000 ML IV SCH (09:15)
[2020-03-22] MEDS ORDERED: FUROSEMIDE 20MG/2ML VIAL (J1940) IV ONE (09:30)
[2020-03-22] MEDS: MORPHINE 2 MG/ML 1ML VIAL (J2270) IV PRN ×4 (11:25→22:18)
[2020-03-22 12:32] LABS: ABG BASE EXCESS -8.9 (-2.0-2.0); ABG HCO3 16.9 MEQ/L (22.0-26.0); ABG O2 SATURATION 95.1 % (95.0-99.0); ABG PARTIAL PRESSURE CO2 36.3 mmHg (35.0-45.0); ABG PARTIAL PRESSURE O2 73.8 mmHg (75.0-100.0); ABG STANDARD HCO3 17.1 MEQ/L (22.0-26.0); ABG pH (ARTERIAL) 7.286 UNITS (7.350-7.450)
--- NOTE | 2020-03-22 15:30 | CCN ---
CRITICAL CARE NOTE DATE: 03/22/2020 CRITICAL CARE TIME: One hour and 34 minutes. This excludes all procedures. Mr. Yanez did not do well overnight. This morning blood gas showed hypercarbic respiratory failure, therefore was switched to a controlling mode from a support mode. Do not believe he will be able to be extubated. I feel he is too weak. He is also more anemic, requiring blood transfusion overnight. Renal function worse, likely from attempts to improve his hyperkalemia. He was hyperkalemic before he was acidotic. He does have diffuse interstitial markings on his chest x-ray, consistent with edema versus residual infection from his COVID pneumonia. He continues to have a significant leukocytosis. He is arousable. Has a gag reflux now but is just too weak to move. Has some mottling of his lower extremities. After an extensive discussion this morning, I have explained to the patient's daughter, Geno, who is the healthcare proxy, that the patient is not ready for extubation. He states he would not want prolonged mechanical ventilation, especially in the face of advanced malignancy. I have explained that, because of the severe protein malnourishment, the severe weakness, that it will be a very difficult road, and the prognosis is very poor. She agrees, and she and her family have been thinking about this for quite some time. Her mother and sister are in agreement with their choice to withdraw care today. They had been talking about this for over the past week. Therefore, she has advised me to withdraw care; however, she wants to be able to see her father prior to his passing. According to the hospital rules, there is allowance for visitation despite COVID positivity. I will review this again with the nursing field service supervisor. PHYSICAL EXAMINATION: Temperature is 98.2, pulse is 127, respiratory rate 19, blood pressure is ranging 93/53 to 108/58, oxygen saturation 93% on a 0.40 FiO2, currently on pressure control ventilation 15/5. GENERAL: Sedated. Unable to move extremities. I switched out his endotracheal tube douglas at bedside, as there was vomit from tube feeds. Endotracheal tube is in place along with orogastric (OG) tube. NECK: Supple. No tracheal deviation or mass. LYMPHATIC: No cervical, supraclavicular, or axillary adenopathy. CARDIAC: Regular S1, S2 without audible murmur, rub, or gallop. No elevated jugular venous pressure (JVP). Decreased breath sounds throughout without rales, rhonchi, or wheezes. No dullness to percussion. No accessory muscle use. ABDOMEN: Soft, nontender, nondistended. No hepatosplenomegaly. No masses or hernia. There is some leakage around the suprapubic catheter. EXTREMITIES: Significant edema in the arms and legs. There is slightly less, but there continues to be bruising of varying stages. No ulcerations. Some mottling of the left knee. Few amputated toes. NEUROLOGIC: No purposeful movements. Does trigger the vent. Has gag reflex. IMAGING: Chest x-ray shows diffuse increased interstitial markings, similar to the day prior. LABORATORY EVALUATION: White count is still elevated at 39.4, hemoglobin is 6.8, platelet count of 202. Sodium is 135, potassium 6.0, chloride 105, bicarbonate 25, BUN 93, creatinine 1.9. Arterial blood gas shows a pH of 7.15, pCO2 of 60, paO2 of 130. ASSESSMENT AND PLAN: Critical care was provided to this patient because of the severity of his respiratory failure. He has COVID pneumonia with acute hypoxic respiratory failure. He continues to require mechanical ventilation, likely from critical illness myopathy. He also has severe protein malnourishment with new anemia, likely blood loss from malignancy. Leukocytosis that is not improving with acute kidney injury that is worsening. Overall I believe the patient's family has made the correct choice in withdrawing care and converting him to comfort measures. JERRI
[2020-03-22] MEDS ORDERED: SCOPOLAMINE 1MG TRANSDERMAL PATCH TOP PRN (16:00)
[2020-03-22] MEDS: MIDAZOLAM INJ 2MG/2ML VIAL (J2250 PER 1MG) IV PRN (16:24)
--- NOTE | 2020-03-22 19:33 | HPEPDOC ---
[facility] Medical History & Physical Date of Admission Mar 22, 2020 Date of Service: Mar 22, 2020 Attending Physician: GIO KAT MD History and Physical TIME OF SERVICE: 9 PM CHIEF COMPLAINT: Dyspnea HISTORY OF PRESENT ILLNESS: The majority of the information was obtained via chart review. This patient was terminally extubated and has encephalopathy therefore, he was unable to contribute any information. This 80-year-old gentleman presented to an outside facility with complaints of fatigue and shortness of breath; he was diagnosed with acute hypoxemic respiratory failure along with sepsis and UTI. He was started on antibiotics and at some points during his stay at the outside facility he was intubated and transferred to [facility] for higher level of care. 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 He also also diagnosed with [place] on CKD, hyperkalemia, anemia of chronic disease, Covid 19 pneumonia with ADRS, critical illness myopathy and protein calorie malnutrition. 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 Per discussion with Dr. Yuan the hospital service will take over the patient's care. REVIEW OF SYSTEMS: Unobtainable PAST MEDICAL/ SURGICAL HISTORY: Metastatic urothelial carcinoma Pembrolizumab induced hepatitis Recurrent UTIs Percutaneous right-sided nephrostomy tube / chronic urethral strictures 3 CKD Chronic Hypertension Dyslipidemia. History of CVA. CAD AAA SOCIAL HISTORY: Unobtainable FAMILY HISTORY: Unobtainable ALLERGIES: Please see below. HOME MEDICATIONS: Please see below. PHYSICAL EXAMINATION: VITAL SIGNS: Please see below. GEN: Lethargic INTEGUMENT: Has generalized pallor HEENT: Ventimask in place/mucous members dry CVS: Tachycardic LUNGS: He has a terminal breathing and has inspiratory crackles ABDOMEN: Contour (obese ) NEURO: Unable to assess PSYCH: Unable to assess LABORATORY DATA: See below. IMAGING: As multiple imaging studies. The most recent chest x-ray done on March 22 " IMPRESSION: 1. Limited by technique and poor inspiratory effort. 2. Lines and tubes in satisfactory stable position. 3. Diffuse interstitial changes remains stable. Cannot exclude subtle scattered airspace disease. 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 He was terminally extubated and will now be managed under the hospital service. PLAN: 1. COVID 19 PNA w ARDS / MODERATE NEEDS TEACHER - Covid order set, including morphine, lorazepam, and scopolamine were ordered by Dr. yuan DVT PROPHYLAXIS: n/a DISPOSITION: Pending clinical course Vital Signs Vital Signs Date Time Temp Pulse Resp B/P (MAP) Pulse Ox O2 Delivery O2 Flow Rate FiO2 03/22/20 16:15 Aerosol Mask 28 03/22/20 14:00 21 03/22/20 14:00 125 116/56 (79) 92 03/22/20 12:00 98.4 Laboratory Data Labs 24H Laboratory Tests 2 03/21/20 23:08: Bedside Glucose (Misc Panel) 210H 03/22/20 04:00: Immature Granulocyte % (Auto) 8.7H, Neutrophils (%) (Auto) 84.6H, Lymphocytes (%) (Auto) 2.2L, Monocytes (%) (Auto) 4.1, Eosinophils (%) (Auto) 0.0, Basophils (%) (Auto) 0.4, Neutrophils # (Auto) 33.3H, Lymphocytes # (Auto) 0.9L, Monocytes # (Auto) 1.6H, Eosinophils # (Auto) 0.0, Basophils # (Auto) 0.2, Nucleated Red Blood Cells % (auto) 2.2H, Fibrinogen 364, Anion Gap 5L, Glomerular Filtration Rate 36.6L, Calcium Level 9.0, Phosphorus Level 5.1#H, Ferritin 809H, Total Bilirubin 1.1H, Aspartate Amino Transf (AST/SGOT) 61H, Alanine Aminotransferase (ALT/SGPT) 104H, Alkaline Phosphatase 591H, Lactate Dehydrogenase 518H, Total Creatine Kinase 68, C-Reactive Protein, Quantitative 4.64H, Total Protein 4.7L, Albumin 1.3L, Albumin/Globulin Ratio 0.4, Triglycerides Level 340H, Cholesterol Level 160 03/22/20 05:32: Blood Gas Bicarbonate Standard 18.0L, Arterial Blood pH 7.153*L, Arterial Blood Partial Pressure CO2 60.2*H, Arterial Blood Partial Pressure O2 129.9H, Arterial Blood Total CO2 22.5L, Arterial Blood HCO3 20.6L, Arterial Blood Base Excess - 7.8L, Arterial Blood Oxygen Saturation 98.8 03/22/20 11:21: Bedside Glucose (Misc Panel) 204H 03/22/20 12:20: Blood Gas Bicarbonate Standard 17.1L, Arterial Blood pH 7.286L, Arterial Blood Partial Pressure CO2 36.3, Arterial Blood Partial Pressure O2 73.8L, Arterial Blood Total CO2 18.0L, Arterial Blood HCO3 16.9L, Arterial Blood Base Excess - 8.9L, Arterial Blood Oxygen Saturation 95.1 CBC/BMP Laboratory Tests 03/22/20 04:00 Microbiology Microbiology 03/18/20 Blood Culture - Preliminary, Resulted No Growth after 72 hours. All specime... 03/16/20 Urine Culture - Final, Complete Yeast Like Organism Home Medications Scheduled Atorvastatin Calcium (Atorvastatin Calcium) 40 Mg Tab, 40 MG PO QHS Ergocalciferol (Vitamin D2) (Ergocalciferol) 200 Mcg/1 Ml Drops, 400 MCG PO DAILY Ferrous Sulfate (Ferrous Sulfate) 325 Mg Tablet.dr, 1 TAB PO DAILY Finasteride (Finasteride) 5 Mg Tab, 5 MG PO DAILY Hydrochlorothiazide (Hydrochlorothiazide) 12.5 Mg Cap, 12.5 MG PO DAILY Lisinopril (Lisinopril) 20 Mg Tab, 20 MG PO DAILY Metoprolol Succinate (Toprol Xl) 100 Mg Tab.er.24h, 100 MG PO DAILY Multivitamin (Multivitamins) 1 Each Tablet, 1 TAB PO DAILY Omeprazole (Omeprazole) 20 Mg Cap, 20 MG PO BID Prednisone (Prednisone) 10 Mg Tablet, 4 TAB PO DAILY Scheduled PRN Acetaminophen (Acetaminophen) 325 Mg Tab, 650 MG PO Q8H PRN for PAIN / FEVER Nitroglycerin (Nitroglycerin) 0.4 Mg Sub, 0.4 MG SL NITRO PRN for CHEST PAIN Nystatin/Triamcin (Nystatin-Triamcinolone Ointm) 1 Oin Oin, 1 APLCT TOP QID PRN for RASH AROUND CATHETER apply to affected area(s) Miscellaneous Medications Pembrolizumab (Keytruda) 100 Mg/4 Ml Vial, 200 MG IV Allergies Coded Allergies: No Known Allergies (Unverified , 03/22/19) A-FIB/CHADSVASC A-FIB History Current/History of A-Fib/PAF?: No Current PO Anticoag Therapy: No GIO KAT MD Mar 22, 2020 19:33
[2020-03-23] MEDS: MORPHINE 2 MG/ML 1ML VIAL (J2270) IV PRN ×8 (00:09→06:38)
[2020-03-23] MEDS: LORazepam 2 MG/ML VIAL IV PRN ×2 (04:30→06:37)
[2020-03-23] MEDS: MIDAZOLAM INJ 2MG/2ML VIAL (J2250 PER 1MG) IV PRN (06:01)
[2020-03-23 12:55] LABS: INFLUENZA A AMPLIFICATION NEGATIVE (NEGATIVE); INFLUENZA B AMPLIFICATION NEGATIVE (NEGATIVE)
--- NOTE | 2020-03-23 13:34 | DSES ---
DISCHARGE SUMMARY DATE OF ADMISSION: 03/10/2020 DATE OF DISCHARGE: 03/23/2020 TIME OF : 6:55 a.m. CAUSE OF : Respiratory failure from COVID pneumonia with complication of metastatic urothelial carcinoma. DIAGNOSES: 1. COVID pneumonia. 2. Respiratory failure. 3. Acute kidney injury. 4. Hemorrhage. 5. Urothelial cancer. 6. History of stroke. 7. Coronary artery disease 8. Abdominal aortic aneurysm. 9. Peripheral vascular disease with multiple toe amputations 10. Severe protein malnourishment 11. Critical Illness myopathy 12. Hyperkalemia 13. Anemia with blood loss DESCRIPTION OF HOSPITALIZATION: The patient was admitted on 03/10 with hypoxic respiratory failure. It was thought that because he had ground glass abnormalities and had two outside negative COVID tests that it could have been PCP pneumonia amongst other different types of pneumonia including bacterial or viral. Retesting was performed showing COVID pneumonia. The patient although he did well with resolving the pneumonia However he had significant acquired weakness and severely protein malnutrition and was unable to extubated. The patient's family did not want tracheostomy and the patient himself had expressed he did not want tracheostomy and did want chronic mechanical ventilation. He was actually a DO NOT RESUSCITATE (DNR) with a trial of intubation. This had been expressed prior to his initial intubation. His family came to the conclusion that because of his limited life span, his severe weakness, protein malnourishment and also based on his wishes that they would withdraw care on the and convert him to comfort measures only. This was done under my supervision. The patient then on 03/23 at 6:65 a.m. No autopsy was performed. The patient's family were able to see him for a short duration prior to . [facility]
== END 2020-03-23 06:55 | disposition expired | DRG 870 ==
LOC: EEVIPCON 15:00 → M ICU 15:00 → M PCU 03-13 15:36 → M ICU 03-13 16:07
PROVIDERS: ADMIT Internal Medicine Pulmonary Disease; ATTEND Internal Medicine Pulmonary Disease
PROC: 5A1955Z Respiratory Ventilation, Greater than 96 Consecutive Hours (ICD-10-PCS; principal; 2020-03-10)
PROC: 0TCB8ZZ Extirpation of Matter from Bladder, Via Natural or Artificial Opening Endoscopic (ICD-10-PCS; 2020-03-10)
PROC: 30233K1 Transfusion of Nonautologous Frozen Plasma into Peripheral Vein, Percutaneous Approach (ICD-10-PCS; 2020-03-13)
PROC: 02HV33Z Insertion of Infusion Device into Superior Vena Cava, Percutaneous Approach (ICD-10-PCS; 2020-03-13)
PROC: 30233N1 Transfusion of Nonautologous Red Blood Cells into Peripheral Vein, Percutaneous Approach (ICD-10-PCS; 2020-03-19)
DX: A41.9 Sepsis, unspecified organism (principal); J96.01 Acute respiratory failure with hypoxia; J12.89 Other viral pneumonia; U07.1 COVID-19; J96.02 Acute respiratory failure with hypercapnia; E43 Unspecified severe protein-calorie malnutrition; D62 Acute posthemorrhagic anemia; D68.69 Other thrombophilia; N39.0 Urinary tract infection, site not specified; N17.9 Acute kidney failure, unspecified; G72.81 Critical illness myopathy; I12.9 Hypertensive chronic kidney disease with stage 1 through stage 4 chronic kidney disease, or unspecified chronic kidney disease; K75.4 Autoimmune hepatitis; C67.9 Malignant neoplasm of bladder, unspecified; N13.5 Crossing vessel and stricture of ureter without hydronephrosis; Z86.73 Personal history of transient ischemic attack (TIA), and cerebral infarction without residual deficits; I71.4 Abdominal aortic aneurysm, without rupture; I25.10 Atherosclerotic heart disease of native coronary artery without angina pectoris; I73.9 Peripheral vascular disease, unspecified; Z66 Do not resuscitate; E87.5 Hyperkalemia; E78.5 Hyperlipidemia, unspecified; R31.0 Gross hematuria; N18.30 Chronic kidney disease, stage 3 unspecified; Z51.5 Encounter for palliative care